=== PATIENT | male | born 1960 | race Caucasian/White ===

== ENCOUNTER 2019-11-06 11:37 | Emergency (ER) | payer BC, SELFPAY ==
--- NOTE | ~2019-11-06 | XR_ITS ---
EXAMINATION: XR chest 1V EXAM DATE: 11/06/2019 12:03 INDICATION: Right facial droop. Slurred speech. TECHNIQUE: Portable AP frontal chest x-ray was obtained. Comparison is made to prior examination from 09/16/2013. FINDINGS: The lungs are clear. There are no pleural effusions. Cardiac silhouette is prominent but magnified on this AP technique. There is no pneumothorax suspected. The bones and soft tissues are unremarkable. IMPRESSION: No acute cardiopulmonary findings. Reviewed, dictated and finalized at location A.
--- NOTE | ~2019-11-06 | CT_ITS ---
EXAMINATION: CT brain wo con EXAM DATE: 11/06/2019 11:59 INDICATION: Right facial droop, hemiparesis. TECHNIQUE: Spiral CT of the head was performed without contrast. Axial, coronal and sagittal images were reviewed. The dose-length product (DLP) for this examination was 605.33 mGy-cm. The exposure w as tailored according to patient size, and iterative reconstruction (ASIR) was used as additional dos e reduction technique. Comparison is made to prior examination from 2005. FINDINGS: There is no acute intraparenchymal hemorrhage. No evidence of intraparenchymal brain mass lesion. No evidence of acute infarction. There is no mass effect or midline shift. Mild microangiop athy. The ventricles are normal in size. There are no extra-axial collections. There are no acute c alvarial fractures. The orbits are unremarkable. Soft tissue is unremarkable. The visualized sinuse s and mastoid air cells are well aerated. IMPRESSION: 1. No acute intracranial findings. Reviewed, dictated and finalized at location A.
[2019-11-06 11:40] VITALS: BP 169/101; PULSE 75; RESP 12; TEMP 36.6; O2SAT 98
--- NOTE | 2019-11-06 11:40 | ECG_ITS ---
Measurements Intervals [place] Rate: 63 P: 5 FL: 191 QRS: 62 QRSD: 81 T: 18 QT: 355 QTc: 366 Interpretive Statements SINUS RHYTHM CANNOT RULE OUT SEPTAL INFARCT, AGE INDETERMINATE BASELINE ARTIFACT- V1-V3 ABNORMAL ECG Electronically Signed On 11-06-2019 17:06:07 CDT by Jhonny Cruz D.O.
[2019-11-06 11:46] LABS: Glucose Point of Care 113 (65-105)
[2019-11-06 12:02] LABS: Basophils Percent Auto 0.4 % (0.2-1.2); Eosinophils Absolute Auto 0.1 K/mm3 (0-0.3); Eosinophils Percent Auto 1.2 % (0-4.4); Immature Granulocyte Absolute 0.07 K/mm3 (0.00-0.031); Immature Granulocyte Percent A 0.9 % (0-0.5); Lymphocytes Absolute Auto 1.91 K/mm3 (0.9-3.2); Lymphocytes Percent Auto 25.9 % (18.3-44.2); Mean Corpuscular HGB Conc 33.3 g/dl (32-36); Mean Corpuscular Hemoglobin 31.1 pg (26-34); Mean Corpuscular Volume 93.2 fl (80-100); Mean Platelet Volume 10.1 fl (7.4-10.4); Monocytes Absolute Auto 0.7 K/mm3 (0.1-0.6); Monocytes Percent Auto 9.8 % (2.6-8.5); Neutrophils Absolute Auto 4.6 K/mm3 (1.3-6.7); Neutrophils Percent Auto 61.8 % (45.5-73.1); Platelet Count Result 249 k/mm3 (150-375); Red Blood Count 5.47 M/mm3 (4.6-6.20); Red Cell Distribution Width 12.3 % (11.5-14.5); White Blood Count 7.4 K/mm3 (4.5-10.0)
--- NOTE | 2019-11-06 12:03 | ED.GENADULT ---
HPI - General Adult General Chief complaint: Neuro Symptoms/Deficit Stated complaint: I think I had a stroke Time Seen by Provider: 11/06/19 11:41 Source: patient Mode of arrival: ambulatory Limitations: no limitations History of Present Illness HPI narrative: Patient is a 59-year-old male who presents for evaluation of right-sided facial droop. Patient states he developed an earache a couple of days ago, tried to do some earwax removal without much success, and then noticed yesterday that he was having trouble drinking, he had facial droop and lip drooping on the right. Onset of symptoms over 15 hours ago. Patient denies headache, fever, arm, hand numbness, leg weakness or difficulty walking. No dizziness. Patient states he still has mild earache pain. No discharge from the ears. No vision changes. Related Data Home Medications Medication Instructions Recorded Confirmed tamsulosin mg PO 11/06/19 Allergies Allergy/AdvReac Type Severity Reaction Status Date / Time No Known Allergies Allergy Unknown Verified 11/06/19 12:05 Review of Systems Review of Systems: Narrative: CONSTITUTIONAL: Denies fever, chills, or sweats. EYES: Denies visual changes, redness, or discharge. ENT: Denies rhinorrhea, congestion, sore throat, reports right ear pain for the past 4 days CARDIOVASCULAR: Denies chest pain, palpitations, or edema. RESPIRATORY: Denies cough or dyspnea. GASTROINTESTINAL: Denies abdominal pain, nausea, vomiting, or diarrhea. GENITOURINARY: Denies dysuria or hematuria. SKIN: Denies rash or itching. MUSCULOSKELETAL: Denies back pain, joint pain, or myalgia. NEUROLOGIC: Denies headache, numbness, reports right-sided facial droop PMFSH Past Medical History Medical History Anxiety Depression GERD (gastroesophageal reflux disease) Herniated disc Pneumonia Surgical History Surgical History H/O wrist surgery Previous back surgery Social History Social History Smoking status: Never smoker Second hand tobacco smoke exposure: No Exam Narrative: Exam Narrative: GENERAL: Awake, alert, conversant HEAD: Normocephalic, atraumatic. EYES: PERRLA and EOMI. ENT: Nares clear, no rhinorrhea or epistaxis. Mucous membranes moist. TMs clear bilaterally. Right ear intact light reflex, no bulging, no effusion. Mild erythema of the external ear canal, no vesicles, nontender. NECK: Supple. CHEST: No respiratory distress, breathing even and non labored HEART: Regular rate, sinus rhythm ABDOMEN:Non distended, non tender EXTREMITIES: Normal range of motion. No edema. SKIN: Warm, dry, no rash. NEURO: Right-sided facial droop that includes the forehead and eye. Patient is unable to raise his eyebrows, he has right-sided lip drooping, grimace is asymmetric. Finger to nose intact bilaterally. EOMs intact without nystagmus. Normal, Intact sensation in face. Hearing intact bilaterally. Shoulder shrug intact. Strength 5/5 bilateral upper extremities. Strength 5/5 bilateral lower extremities. Reflexes 2+ patellar. Heel to leal intact bilaterally. Ambulatory exam deferred. Course Vital Signs Vital signs: Vital Signs Temperature 36.6 C 11/06/19 11:40 Pulse Rate 75 11/06/19 11:40 Respiratory Rate 12 11/06/19 11:40 Blood Pressure 169/101 H 11/06/19 11:40 Pulse Oximetry 98 11/06/19 11:40 Temperature 36.6 C 11/06/19 11:40 Pulse Rate 75 11/06/19 11:40 Respiratory Rate 12 11/06/19 11:40 Blood Pressure 169/101 H 11/06/19 11:40 Pulse Oximetry 98 11/06/19 11:40 Medical Decision Making [facility] Narrative Medical decision making narrative: Patient presented for evaluation of right-sided facial droop after experiencing ear pain. 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
[2019-11-06 12:14] LABS: Prothrombin Time 12.8 Seconds (11.1-14.7)
[2019-11-06 12:15] LABS: Partial Thromboplastin Time 23.7 SECONDS (22.3-36.8)
[2019-11-06 12:24] LABS: Blood Urea Nitrogen 14 mg/dL (9-20); Calcium 9.7 mg/dL (8.4-10.2); Carbon Dioxide 32 mmol/L (22-30); Chloride 100 mmol/L (98-107); Estimated CRCL calculation 84 ml/min; Estimated Glomerular Filt Rate > 60; Glucose 108 mg/dL (75-110); Potassium 4.3 mmol/L (3.4-5.0); Sodium 136 mmol/L (137-145)
[2019-11-06 12:36] LABS: Troponin I < 0.012 ng/mL (0.000-0.034)
[2019-11-06] MEDS: ACETAMINOPHEN 500 MG TABLET 1000 MG PO (13:15)
[2019-11-06 13:20] VITALS: BP 158/90; PULSE 69; RESP 16; O2SAT 98
--- NOTE | 2019-11-06 13:28 | PC.NURSE ---
VS AT 1230 PULSE 70, RR 14, POX97, BP 176/84
== END 2019-11-06 13:20 | disposition home or self-care (01) ==
PROVIDERS: Emergency Provider Emergency Medicine; PCP Family Medicine Adolescent Medicine
DX: G51.0 Bell's palsy (principal); K21.9 Gastro-esophageal reflux disease without esophagitis; R94.31 Abnormal electrocardiogram [ECG] [EKG]
CPT/HCPCS: 36415; 70450; 71045; 80048; 82948; 84484; 85025; 85610; 85730; 93005; 99284; A9270

== ENCOUNTER 2020-01-04 10:41 | Observation (INO) | payer BC, SELFPAY ==
[2020-01-04] VITALS (18 sets, daily range): BP systolic 100–141; BP diastolic 50–91; PULSE 47–76; RESP 11–18; TEMP 36.4–36.7; O2SAT 96–100
--- NOTE | ~2020-01-04 | XR_ITS ---
EXAMINATION: XR chest 1V portable EXAM DATE: 01/04/2020 11:30 INDICATION: Syncope. TECHNIQUE: Portable AP frontal chest x-ray was obtained. Comparison is made to prior examination from 11/06/2019. FINDINGS: The lungs are clear. There are no pleural effusions. Cardiac silhouette is prominent but magnified on this AP technique. There is no pneumothorax suspected. The bones and soft tissues are unremarkable. IMPRESSION: No acute cardiopulmonary findings. Reviewed, dictated and finalized at location A.
--- NOTE | ~2020-01-04 | XR_ITS ---
EXAMINATION: XR ankle RT min 3V DATE: 01/04/2020 11:30 INDICATION: Right ankle pain. Fall. TECHNIQUE: 4 views of right ankle were obtained. COMPARISON: None. FINDINGS: There is an oblique fracture of distal fibula with medial aspect of the fracture line 5 mm distal to the level of the tibial plafond. There is heterotopic ossification distal to medial malleol us. There is mild midfoot osteoarthritis. There are enthesophytes at the posterior and plantar aspect s of calcaneal tuberosity. Ankle soft tissue swelling is noted. IMPRESSION: 1. Oblique fracture of distal fibula. 2. Heterotopic ossification distal to medial malleolus, likely acute avulsion fractures. Reviewed, dictated and finalized at location B. IMPRESSION: 1. Oblique fracture of distal fibula. 2. Heterotopic ossification distal to medial malleolus, likely acute avulsion f ractures.
--- NOTE | ~2020-01-04 | US_ITS ---
EXAMINATION: US carotid duplex BI DATE: 01/05/2020 11:06 INDICATION: Syncope. Vertigo. TECHNIQUE: Grayscale, color Doppler, and pulsed Doppler images of the cervical carotid arteries were obtained. The degree of vessel stenosis is placed in one of the following categories: normal, <50%, 5 0-69%, >=70% but less than near-occlusion, near-occlusion, or total occlusion. Note that percent sten osis relative to normal distal artery lumen diameter is indirectly measured from velocity measurement s as described by Chon, et al. Radiology 2003; 229:340-346. COMPARISON: None. FINDINGS: RIGHT: The right common carotid artery (CCA) peak systolic velocity (PSV) is 216 cm/s. The right internal ca rotid artery (ICA) PSV is 107 cm/s. The right ICA end-diastolic velocity (EDV) is 36 cm/s. The right ICA/CCA PSV ratio is 0.5. Grayscale and color Doppler images yield an estimate of <50% diameter reduc tion from plaque in the ICA. The external carotid artery (ECA) PSV is 139 cm/s. There is antegrade fl ow in the right vertebral artery. LEFT: The left CCA PSV is 188 cm/s. The left ICA PSV is 113 cm/s. The left ICA EDV is 38 cm/s. The left ICA /CCA PSV ratio is 0.6. Grayscale and color Doppler images yield an estimate of <50% diameter reductio n from plaque in the ICA. The ECA PSV is 96 cm/s. There is antegrade flow in the left vertebral arter y. IMPRESSION: 1. <50% stenosis in the right internal carotid artery. 2. <50% stenosis in the left internal carotid artery. Reviewed, dictated and finalized at location A.
--- NOTE | ~2020-01-04 | CT_ITS ---
EXAMINATION: CT brain wo [facility] EXAM DATE: 01/04/2020 12:09 INDICATION: Syncope. Fall, head injury. TECHNIQUE: Spiral CT of the head was performed without contrast. Axial, coronal and sagittal images were reviewed. The dose-length product (DLP) for this examination was 605.33 mGy-cm. The exposure w as tailored according to patient size, and iterative reconstruction (ASIR) was used as additional dos e reduction technique. Comparison is made to prior examination from 11/06/2019. FINDINGS: There is no acute intraparenchymal hemorrhage. No evidence of intraparenchymal brain mass lesion. No evidence of acute infarction. Please note that initial head CT has limited sensitivity f or small or acute infarctions. There is mild to moderate periventricular and subcortical hypodensity, nonspecific but probably related to small vessel ischemic disease. There is mild prominence of the sulci and ventricles related to cerebral atrophy. There is intracranial carotid arteriosclerosis. There are no extra-axial collections. There is no mass effect or midline shift. The orbits are unr emarkable. Soft tissue is unremarkable. The visualized sinuses and mastoid air cells are well aerat ed. IMPRESSION: 1. No acute intracranial findings. 2. Chronic age related findings. Reviewed, dictated and finalized at location A.
--- NOTE | ~2020-01-04 | CT_ITS ---
EXAMINATION: CTA chest PE protocol DATE: 01/04/2020 13:56 INDICATION: Syncope. TECHNIQUE: Computed tomography angiography (CTA) of the chest was performed with 100 mL Omnipaque-350 intravenous contrast timed to evaluate the pulmonary arteries. Coronal maximum intensity projection 3D-reconstructions were created by the technologist. Automated exposure control and iterative reconst ruction technique were employed. The dose-length product was 731.89 mGy-cm. COMPARISON: CT abdomen and pelvis 04/08/2019, chest CT 09/16/2013 FINDINGS: The lungs demonstrate mild atelectasis. There are a few chronic scattered nodules in the thea ngs measuring up to 6 mm in right lower lobe, consistent with granulomatous disease. No pleural effus ion. The heart size is normal. There are coronary artery calcifications. No pericardial effusion. The re are gallstones in the gallbladder, which is normal in size. There is diffuse hepatic steatosis. Th ere is no pulmonary embolus. There is bilateral gynecomastia. There is chronic mild bilateral hilar l ymphadenopathy, likely reactive. There is mild thoracic spondylosis. IMPRESSION: 1. No pulmonary embolus. Reviewed, dictated and finalized at location B. IMPRESSION: 1. No pulmonary embolus.
--- NOTE | 2020-01-04 11:03 | ECG_ITS ---
Measurements Intervals [place] Rate: 71 P: -11 NM: 171 QRS: 56 QRSD: 96 T: 36 QT: 400 QTc: 437 Interpretive Statements SINUS RHYTHM INCOMPLETE RIGHT BUNDLE BRANCH BLOCK BORDERLINE ST-T WAVE ABNORMALITY- INFERIOR LEADS BASELINE ARTIFACT- II, AVR BORDERLINE ECG Electronically Signed On 01-04-2020 11:40:26 CDT by Jhonny Cruz D.O.
--- NOTE | 2020-01-04 11:06 | ED.GENADULT ---
HPI - General Adult General Chief complaint: Fall Stated complaint: SYNCOPE Time Seen by Provider: 01/04/20 10:50 Source: patient Mode of arrival: ambulatory Limitations: no limitations History of Present Illness HPI narrative: This patient is a 59 year old male who presents for evaluation of right ankle pain s/p syncopal episode. PAtient states he was walking to his car and then without warning he passed out. He states he woke up on the ground. He states he was able to get himself up and lean on his truck. He states he passed out again, and he woke up this time with pain to his right ankle. He denies chest pain, sob, nausea, vomiting or palpitations. He states yesterday he had a headache but he denies a headache or dizziness currently. Related Data Home Medications Medication Instructions Recorded Confirmed tamsulosin 0.4 mg PO HS 11/06/19 01/04/20 lisinopril 20 mg PO DAILY 01/04/20 01/04/20 Allergies Allergy/AdvReac Type Severity Reaction Status Date / Time No Known Allergies Allergy Unknown Verified 01/04/20 11:02 Review of Systems Review of Systems: All systems reviewed & are unremarkable except as noted in HPI and below Constitutional: Constitutional: Denies chills and Denies fever(s) Eyes: Eyes: Reports no additional eye complaints Cardiovascular: Cardiovascular: Denies chest pain Respiratory: Respiratory: Denies cough, Denies dyspnea and Denies wheezing Gastrointestinal: Gastrointestinal: Denies abdominal pain, Denies diarrhea, Denies nausea and Denies vomiting Neurologic: Reports syncope, Denies headache(s) and Denies numbness [facility] Family History Family History (Updated 01/04/20 @ 16:38 by Nayely Grigsby RN) Mother Heart attack Hypertension Father Heart attack Hypertension Sibling Heart attack Lung cancer Hypertension Social History Social History Smoking status: Never smoker Second hand tobacco smoke exposure: Yes Alcohol intake: former Substance use: never Gender identity (if verbalized by the patient): Male Spiritual care concerns: No Exam Const: General: no acute distress and alert Orientation/consciousness: patient oriented x3 HENMT: Head: normocephalic and atraumatic Face and sinus: other (bells palsy right facial droop) Mouth: Yes Normal oral and palatal mucosa present and Yes oropharynx normal Chest: Chest palpation & inspection: normal inspection of the chest Resp: Effort & Inspection: normal respiratory effort and no retractions Auscultation: clear to auscultation bilaterally Cardio: Rate: regular rate Rhythm: regular rhythm Heart sounds: no murmurs GI: GI Palp: Yes Soft to palpation, No Tenderness to palpation present (GI), No Guarding due to palpation present (GI), No Rigid due to palpation and No Hernia present Skin: General skin exam: normal color Rashes: no rashes Neuro: General: patient oriented x3 and moves all extremities Extrem: Other: right lateral ankle TTP Psych: Mental Status: mental status grossly normal Affect: normal affect Course Reevaluation(s) Reevaluation #1: I discussed xray with nurse in OR with Dr. Argueta. I notified them patient will need to be admitted to hospitalist and he will need to consult. Date: 01/04/20 Time: 14:14 Reevaluation #2: I discussed case with Mary aldrich who accepts patient. Date: 01/04/20 Time: 14:16 Vital Signs Vital signs: Vital Signs Pulse Rate 71 01/04/20 10:48 Respiratory Rate 15 01/04/20 10:48 Blood Pressure 111/76 01/04/20 10:48 Pulse Oximetry 98 01/04/20 10:48 Temperature 98.1 F 01/04/20 10:53 Pulse Rate 54 L 01/04/20 17:59 Respiratory Rate 18 01/04/20 15:31 Blood Pressure 141/71 H 01/04/20 17:59 Pulse Oximetry 99 01/04/20 15:31 Medical Decision Making Vital Signs Vital Signs: Vital Signs Pulse Rate 71 01/04/20 10:48 Respiratory Rate 15 01/04/20 10:48 Blood P
[2020-01-04 11:29] LABS: Basophils Percent Auto 0.5 % (0.2-1.2); Eosinophils Absolute Auto 0.1 K/mm3 (0-0.3); Eosinophils Percent Auto 0.9 % (0-4.4); Hematocrit 46.8 % (42.0-52.0); Hemoglobin 15.7 g/dL (14.0-18.0); Immature Granulocyte Percent A 1.3 % (0-0.5); Lymphocytes Absolute Auto 1.52 K/mm3 (0.9-3.2); Lymphocytes Percent Auto 19.2 % (18.3-44.2); Mean Corpuscular HGB Conc 33.5 g/dl (32-36); Mean Corpuscular Volume 92.3 fl (80-100); Mean Platelet Volume 10.4 fl (7.4-10.4); Monocytes Absolute Auto 0.7 K/mm3 (0.1-0.6); Monocytes Percent Auto 8.2 % (2.6-8.5); Neutrophils Absolute Auto 5.5 K/mm3 (1.3-6.7); Neutrophils Percent Auto 69.9 % (45.5-73.1); Platelet Count Result 209 k/mm3 (150-375); Red Blood Count 5.07 M/mm3 (4.6-6.20); Red Cell Distribution Width 12.5 % (11.5-14.5); White Blood Count 7.9 K/mm3 (4.5-10.0)
[2020-01-04] MEDS: MORPHINE SULFATE 4 MG/ML INJ IV PUSH (11:57)
[2020-01-04] MEDS: ONDANSETRON INJ 4 MG/2 ML VIAL IV PUSH (11:57)
[2020-01-04] MEDS: LACTATED RINGERS 1,000 ML 999 ML IV CONT (11:57)
[2020-01-04 12:49] LABS: INR 1.1; Partial Thromboplastin Time 21.8 SECONDS (22.3-36.8); Prothrombin Time 13.6 Seconds (11.1-14.7)
[2020-01-04 12:50] LABS: Alanine Aminotransferase 30 U/L (4-50); Alkaline Phosphatase 88 U/L (38-126); Anion Gap 7 mmol/L (8-16); Aspartate Amino Transferase 25 U/L (17-59); Bilirubin,Total 1.1 mg/dL (0.2-1.3); Blood Urea Nitrogen 24 mg/dL (9-20); Carbon Dioxide 24 mmol/L (22-30); Chloride 103 mmol/L (98-107); Estimated CRCL calculation 53 ml/min; Estimated Glomerular Filt Rate 39; Glucose 101 mg/dL (75-110); Magnesium 1.9 mg/dL (1.6-2.3); Potassium 4.3 mmol/L (3.4-5.0); Sodium 134 mmol/L (137-145)
[2020-01-04 12:52] LABS: D Dimer 1.23 ug/mL (<0.48)
--- NOTE | 2020-01-04 13:10 | ECG_ITS ---
Measurements Intervals [place] Rate: 64 P: -28 [place]: 191 QRS: 66 QRSD: 86 T: 35 QT: 397 QTc: 412 Interpretive Statements SINUS RHYTHM CANNOT RULE OUT SEPTAL INFARCT, AGE INDETERMINATE BORDERLINE ST-T WAVE ABNORMALITY- INFERIOR LEADS BASELINE ARTIFACT- I, II, III, AVR, AVL, AVF ABNORMAL ECG Electronically Signed On 01-04-2020 16:03:24 CDT by Jhonny Cruz D.O.
--- NOTE | 2020-01-04 16:36 | ADMGEN ---
This patient, Pedro Campos Jr., was admitted to Medical Room 246-01. Patient/family oriented to hospital policies and general routines including ID bracelet, bed and alarms, visiting hours, pain management, procedures, bathroom and other care routines, personal items, smoking policy, room service/diet, and visiting hours. Valuables list has been completed. Information on how to activate the Rapid Response Team has been discussed. Patient/Family are encouraged to report perceived risks to care and to ask questions if they do not understand what they are told or what they should do.
[2020-01-04] MEDS: SODIUM CHLORIDE 0.9% IV 1,000 ML 125 ML IV CONT (16:53)
--- NOTE | 2020-01-04 19:30 | PM.IMHP ---
H&P: HPI History of Present Illness Date/Time: 01/04/20 19:30 Chief complaint: Syncope. Narrative: Pedro Campos Jr. is a very pleasant 59-year-old male with hypertension and benign prostatic hyperplasia who presented to the emergency department earlier this morning for evaluation after a syncopal episode. He was in his usual state of health when he woke this morning and on the way to work he stopped to get gas. While walking across the parking lot back to his truck, he had a syncopal episode without prodrome. He came to in the prone position and was able to get himself back up, and shortly thereafter while leaning against his truck, he had another syncopal episode. This time when he came to he had quite a bit of pain in his right ankle, and required help getting back up. In the emergency department he was found to have a distal fibular fracture and he is being admitted for further syncopal workup. I was called the several times by the nurse with reports of the patient becoming bradycardic, with rates in the 30s to 40s for brief periods of time. When she went to check on him, he was awake and watching television and had no symptoms of such. With regards to his ankle pain, it is well controlled on oral pain medications. He denies paresthesias distal to the fracture. He is on no AV osvaldo blocking agents. Again, he had no prodrome prior to the syncopal episodes. He specifically denies feeling lightheaded and dizzy. There were no visual changes. He denies palpitations, pleuritic pain, chest pain, and shortness of breath. He has never had syncopal episodes in the past. Review of Systems Review of Systems: Narrative: Twelve systems were reviewed with pertinent positives and negatives as per HPI. 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 No recent cold or flu symptoms. No history of cardiac or pulmonary disease. 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 He does not know if he snores. He denies orthopnea and PND. Denies daytime somnolence. No thyroid disease. Weight has remained stable. No history of diabetes or dyslipidemia. Endorses nocturia, usually 4 to 5 times per night and this has been going on for years. No dysuria. No history of venous thromboembolism. Except as documented, all other systems were reviewed and are negative. [facility] Past Medical History Medical History (Updated 01/04/20 @ 21:56 by Mary Matthews PA-C) Anxiety Benign prostatic hyperplasia Depression Essential hypertension Gastroesophageal reflux disease Surgical History Surgical History (Updated 01/04/20 @ 21:51 by Mary Matthews PA-C) Status post lumbar microdiscectomy (~07/04/03) L5-S1. Family History Family History (Updated 01/04/20 @ 21:53 by Mary Matthews PA-C) Mother Heart attack Hypertension Father , at age 54. Heart attack Hypertension Sibling Heart attack Lung cancer Hypertension Sibling Heart attack, Onset Age: 50 Pacemaker Social History Social History (Updated 01/04/20 @ 21:52 by Mary Matthews PA-C) Social History: The patient lives in [place], [place] with his brother. He has never and has no children. He is a lifelong nonsmoker. He used to drink heavily in the past but has not drank for years. No illicit substance use. He works on [employer], loading grain. He designates his brother, Kendall Campos, as his surrogate decision maker and he wishes to be a full code. Spiritual care concerns: No Meds Home Medications and Allergies Home Medications Medication Instructions Recorded Confirmed Type tamsulosin 0.4 mg PO HS 11/06/19 01/04/20 History lisinopril 20 mg PO DAILY 01/04/20 01/04/20 History Allergies Allergy/AdvReac Type Severity Reaction Status Date / Time No Known Allergies Allergy Unknown Verified 01/04/20 11:02 Vital Signs
[2020-01-04] MEDS: TAMSULOSIN HCL 0.4 MG CAPSULE PO (22:15)
[2020-01-05] VITALS (9 sets, daily range): BP systolic 111–122; BP diastolic 40–58; PULSE 56–74; RESP 16–21; TEMP 36.2–36.5; O2SAT 97–100
[2020-01-05] MEDS: SODIUM CHLORIDE 0.9% IV 1,000 ML 100 ML IV CONT ×2 (01:31→11:33)
[2020-01-05 07:34] LABS: Basophils Percent Auto 0.3 % (0.2-1.2); Eosinophils Absolute Auto 0.1 K/mm3 (0-0.3); Eosinophils Percent Auto 1.1 % (0-4.4); Hematocrit 41.9 % (42.0-52.0); Immature Granulocyte Absolute 0.05 K/mm3 (0.00-0.031); Immature Granulocyte Percent A 0.7 % (0-0.5); Lymphocytes Absolute Auto 1.25 K/mm3 (0.9-3.2); Mean Corpuscular HGB Conc 33.4 g/dl (32-36); Mean Corpuscular Hemoglobin 31.2 pg (26-34); Mean Corpuscular Volume 93.3 fl (80-100); Mean Platelet Volume 10.4 fl (7.4-10.4); Monocytes Absolute Auto 0.8 K/mm3 (0.1-0.6); Monocytes Percent Auto 10.3 % (2.6-8.5); Neutrophils Absolute Auto 5.2 K/mm3 (1.3-6.7); Neutrophils Percent Auto 70.6 % (45.5-73.1); Platelet Count Result 175 k/mm3 (150-375); Red Blood Count 4.49 M/mm3 (4.6-6.20); Red Cell Distribution Width 12.6 % (11.5-14.5); White Blood Count 7.4 K/mm3 (4.5-10.0)
[2020-01-05 07:49] LABS: Alanine Aminotransferase 35 U/L (4-50); Albumin Level 3.4 g/dL (3.5-5.1); Alkaline Phosphatase 78 U/L (38-126); Anion Gap 6 mmol/L (8-16); Aspartate Amino Transferase 33 U/L (17-59); Bilirubin,Total 0.9 mg/dL (0.2-1.3); Blood Urea Nitrogen 19 mg/dL (9-20); Calcium 8.5 mg/dL (8.4-10.2); Carbon Dioxide 23 mmol/L (22-30); Chloride 105 mmol/L (98-107); Cholesterol 171 mg/dL (0-200); Estimated CRCL calculation 93 ml/min; Estimated Glomerular Filt Rate > 60; Glucose 99 mg/dL (75-110); HDL Direct 28 mg/dL; Magnesium 1.9 mg/dL (1.6-2.3); Potassium 4.2 mmol/L (3.4-5.0); Sodium 134 mmol/L (137-145); Triglycerides 103 mg/dL (<150)
[2020-01-05 08:01] LABS: LDL Cholesterol Direct 118 mg/dL
--- NOTE | 2020-01-05 09:01 | PM.CNOR ---
Assessment and Plan Assessment and plan (1) Closed fracture of right distal fibula: Qualifiers: Encounter type: initial encounter Fracture morphology: other fracture Qualified Code(s): S82.831A - Other fracture of upper and lower end of right fibula, initial encounter for closed fracture Code(s): S82.831A - Other fracture of upper and lower end of right fibula, initial encounter for closed fracture Status: Acute Assessment and Plan: 59-year-old male with a history of a right ankle injury status post fall after a syncopal episode. Radiographs of the right ankle from the emergency room reveal an oblique fracture of distal fibula in good alignment. Radiographs reviewed with Dr. Argueta. The fracture type and injury as well as radiographs discussed with the patient and family. Operative and nonoperative treatment options reviewed. The patient elects for non operative treatment. Risk of nonunion, malunion or late displacement discussed. Stiffness, pain and possible dysfunction of the joint discussed. Fracture precautions and activity restrictions reviewed. The patient verbalizes understanding. Recommended patient to be fit with a fracture boot. Will plan for removal of splint once CAM walker boot is available. Patient will then be nonweightbearing to the right lower extremity with crutches. Patient may need crutch training with physical and occupational therapy. Patient will not be able to return to work due to activity restrictions. He will follow up in our office in approximately 6 weeks for repeat radiographs in progression of activity level as well as formal physical therapy. Thank you for allowing us to assist in the care of this patient. History of Present Illness HPI Consult date: 01/05/20 Consult reason: fracture (Right Distal Fibula Fracture ) Chief complaint: Syncope, Acute renal failure Narrative: 59-year-old male who complains of right ankle pain status post fall while coming out of a gas station yesterday. The patient states that he was walking to his truck when he suddenly fell to the ground and then woke up while on the ground he then ambulated closer to his trach and pass out again at which point he believes he hurt his ankle. His falls seem to be syncopal in nature. Radiographs of the right ankle from the emergency room revealed an oblique fracture of distal fibula. orthopedic consult requested for management of right ankle fracture. Review of Systems Constitutional: Constitutional: Denies chills, Denies fatigue and Reports weakness Eyes: Eyes: Denies blurry vision and Denies photophobia ENT: Reports system reviewed and no additional complaints, except as documented Cardiovascular: Cardiovascular: Reports lightheadedness Respiratory: Respiratory: Reports no additional respiratory complaints Gastrointestinal: Gastrointestinal: Reports no additional gastrointestinal complaints, Reports diarrhea ( Reports of diarrhea a couple of days ago), Denies nausea and Denies vomiting Genitourinary: Genitourinary: Reports no additional male genitourinary complaints Musculoskeletal: Musculoskeletal: Reports arthralgias ( right ankle) and Reports joint swelling ( right ankle) Integumentary/Breasts: Skin/Breast: Reports system reviewed and no additional complaints, except as docu Neurologic: Reports system reviewed and no additional complaints, except as documented Psychiatric: Psychiatric: Reports no additional psychiatric complaints PMFSH Past Medical History Medical History Anxiety Benign prostatic hyperplasia Depression Essential hypertension Gastroesophageal reflux disease Surgical History Surgical History Status post lumbar microdiscectomy (~07/04/03) L5-S1. Family History Family History Mother Heart attack Hypertension Fa
--- NOTE | 2020-01-05 09:08 | PM.CNCAR ---
Assessment and Plan Assessment and plan (1) Syncope: Code(s): R55 - Syncope and collapse Status: Acute Assessment and Plan: his blood work shows creatinine on admission 1.8 and today 1 suggestive of possible dehydration. Patient works outside in the hot weather and he could be dehydrated. on telemetry his heart rate 50s beats per minute and no pauses. pulmonary embolism was ruled out. No ischemic changes on EKG. check echocardiogram. he will need 30 day event monitor as an outpatient. (2) Elevated serum creatinine: Code(s): R79.89 - Other specified abnormal findings of blood chemistry Status: Acute Assessment and Plan: possibly dehydration (3) Acute dehydration: Code(s): E86.0 - Dehydration Status: Acute History of Present Illness History of Present Illness Consult date/time: date of service: 01/05/20 09:08 Requesting physician: Fatuma Dan PA-C Consult reason: Other ( bradycardia) Reason For Visit: Syncope. Narrative: this is 59-year-old patient with past medical history of hypertension and benign prostatic hypertrophy who apparently sustained episode of syncope while walking in the gas station. his nurse reports he had few times of bradycardia 30s to 40s beats per minute and she went to check on him he was watching TV. he sustained fracture of the distal fibula of the right lower extremity. he states that he did not have any dizziness or vomiting or palpitations or chest pain or shortness of breath. He works outside in the hot weather and maybe was not drinking enough water. Never passed out before. Reports his mom and dad both in the 50s because of heart attacks. His younger brother had a heart attack but he smoker. catheter admission 1.8 and today 1, D-dimer elevated at 1.24, CT thorax ruled out pulmonary embolism which shows active hilar lymph nodes, EKG reviewed myself shows normal sinus rhythm and no ischemia. troponins x1 negative Review of Systems Constitutional: Constitutional: Denies chills, Denies fever(s) and Denies poor appetite Eyes: Eyes: Denies eye discharge, Denies loss of vision, Denies eye pain and Denies photophobia ENT: Denies dizziness, Denies epistaxis, Denies nasal congestion and Denies sore throat Cardiovascular: Cardiovascular: Denies chest pain, Reports syncope, Denies pedal edema, Denies leg edema, Denies palpitations, Denies dyspnea, Denies dyspnea on exertion and Denies orthopnea Respiratory: Respiratory: Denies cough, Denies dyspnea, Denies dyspnea on exertion and Denies wheezing Gastrointestinal: Gastrointestinal: Denies abdominal pain, Denies diarrhea, Denies nausea and Denies vomiting Genitourinary: Genitourinary: Denies hematuria, Denies genital lesions and Denies dysuria Musculoskeletal: Musculoskeletal: Denies arthralgias, Denies joint swelling and Denies numbness Integumentary/Breasts: Skin/Breast: Denies pruritus and Denies rash Neurologic: Denies dizziness, Reports syncope, Denies loss of vision and Denies numbness Psychiatric: Psychiatric: Denies anxiety and Denies depression Endocrine: Endocrine: Denies cold intolerance, Denies heat intolerance and Denies palpitations Hematologic/Lymphatic: Hematologic/Lymphatic: Denies easy bleeding and Denies easy bruising Allergic/Immunologic: Allergic/Immunologic: Denies urticaria and Denies wheezing PMFSH Past Medical History Medical History (Updated 01/04/20 @ 21:56 by Mary Matthews PA-C) Anxiety Benign prostatic hyperplasia Depression Essential hypertension Gastroesophageal reflux disease Surgical History Surgical History Status post lumbar microdiscectomy (~07/04/03) L5-S1. Family History Family History Mother Heart attack Hypertension Father , at age 54. Heart attack Hypertension Sibling Heart attack Lakshmi
--- NOTE | 2020-01-05 16:24 | PM.IMPN ---
Progress Note: A&P Assessment and Plan (1) Syncope: Code(s): R55 - Syncope and collapse Status: Acute Assessment and Plan: The patient suffered two syncopal episodes the morning of 01/03. His syncope is concerning for cardiac dysrhythmia as he had no prodrome. He is on telemetry monitoring which reveals sinus rhythm and sinus bradycardia with no pauses. There is no evidence for high grade AV block or tachyarrhythmias. He remained asymptomatic during the episodes of sinus bradycardia. EKG had no findings of ischemia. Chest CTA was negative for pulmonary embolism. Echocardiogram was ordered but has not been completed yet. Carotid doppler US was negative for ICA stenosis. Cardiology was consulted and input is greatly appreciated. The patient will need a Holter monitor on discharge. Additional considerations include dehydration as he reported diarrhea and was in the heat. His creatinine was elevated and has improved with IV fluids. Await additional studies. (2) Closed fracture of right distal fibula: Qualifiers: Encounter type: initial encounter Fracture morphology: other fracture Qualified Code(s): S82.831A - Other fracture of upper and lower end of right fibula, initial encounter for closed fracture Code(s): S82.831A - Other fracture of upper and lower end of right fibula, initial encounter for closed fracture Status: Acute Assessment and Plan: The patient sustained a fall due to a syncopal episode. Right ankle xray revealed an oblique fracture of the distal fibula. A splint was placed in the emergency department. Dr. Argueta was consulted and the patient has elected to proceed with non-operative management. Orthopedic surgery input is greatly appreciated. He is awaiting a CAM boot. Continue analgesics PRN. Weightbearing status/activity limitations per orthopedic surgery. (3) Elevated serum creatinine: Code(s): R79.89 - Other specified abnormal findings of blood chemistry Status: Resolved Assessment and Plan: Likely pre-renal as he works out in the heat and had diarrhea the day prior to admission. Lisinopril was held and he received gentle IV fluid rehydration. Cr has normalized to 1.00 and BUN is 19. Plan to discontinue IV fluids as he is tolerating PO intake well. (4) Essential hypertension: Code(s): I10 - Essential (primary) hypertension Status: Acute Assessment and Plan: Blood pressures were reviewed and they are reasonably controlled. Lisinopril is on hold due to elevated creatinine at admission but can likely be resumed tomorrow as renal function has normalized. (5) Benign prostatic hyperplasia: Code(s): N40.0 - Benign prostatic hyperplasia without lower urinary tract symptoms Status: Acute Assessment and Plan: Continue tamsulosin. Bladder scan was performed yesterday (01/03) and revealed retention so he underwent straight cath with 700cc returned. He has not had any further retention today and is voiding without difficulty. Continue to monitor. Subjective Date/time seen: 01/05/20 16:24 Interval history: Mr. Campos is a 59 y.o. male who is seen at the bedside in follow-up for syncopal episodes from which he sustained a closed fracture of the right distal fibula. His right ankle pain is well-controlled on PO analgesics. He is awaiting a CAM walker boot as he has decided to proceed with nonoperative management. He denies dizziness, lightheadedness, and headaches. He denies palpitations, chest pain, and dyspnea. He reports that he had diarrhea the day prior to his syncope but this has resolved. He is tolerating his diet well. He had several episodes of bradycardia but remained completely asymptomatic during these episodes. He had urinary retention yesterday but is voiding without difficulty at this time and the RN noted approximately 600cc urine output with 2 separate voids today. He has no other concerns. Review o
[2020-01-05] MEDS: TAMSULOSIN HCL 0.4 MG CAPSULE PO (20:16)
[2020-01-05 20:41] LABS: Glucose Point of Care 102 (65-105)
[2020-01-06] VITALS (8 sets, daily range): BP systolic 119–183; BP diastolic 63–83; PULSE 65–76; RESP 21; TEMP 36.6; O2SAT 100
[2020-01-06 06:15] LABS: Anion Gap 5 mmol/L (8-16); Blood Urea Nitrogen 14 mg/dL (9-20); Calcium 8.5 mg/dL (8.4-10.2); Carbon Dioxide 23 mmol/L (22-30); Chloride 104 mmol/L (98-107); Estimated CRCL calculation 103 ml/min; Estimated Glomerular Filt Rate > 60; Glucose 101 mg/dL (75-110); Potassium 4.3 mmol/L (3.4-5.0); Sodium 132 mmol/L (137-145)
--- NOTE | 2020-01-06 07:44 | PM.PNCARD ---
Progress Note: A&P Additional Plan 59-year-old man with unexplained syncopal episode. Electrocardiogram, telemetry have been normal for about 48 hours. Unremarkable cardiovascular physical exam. my partner has recommended a 30 day event monitor upon discharge. I will direct my office to schedule this and then follow-up with him after that data has been collected. Discharge is okay with me at any time since he has had no arrhythmias since admission. Demarcus Machado MD [facility] Subjective Date/time seen: date of service:01/06/20 07:44 Interval history: Follow-up visit in this 59-year-old man with a syncopal episode which thus far is un unexplained Patient resting comfortably when I entered the room to see him. No cardiovascular complaints Exam Const: General: comfortable and no acute distress HENMT: Mouth: Yes moist mucous membranes Eyes: Sclera: sclerae normal Pupils: Equal, round and reactive pupils present Neck: Neck: supple and no JVD Thyroid: thyroid normal Other: carotid pulses normal bilaterally no bruits audible Resp: Effort & Inspection: normal respiratory effort Auscultation: clear to auscultation bilaterally Cardio: Rate: regular rate Rhythm: regular rhythm Other: no murmur no gallop no rub GI: Auscultation: normal bowel sounds Skin: General skin exam: normal color Neuro: Cognition (Neuro): normal cognition Extrem: General: normal to inspection Objective Data Vital Signs Vital Signs: Vital Signs - 24 hr 01/05/20 08:00 01/05/20 12:00 01/05/20 14:00 Temperature 36.3 C L Pulse Rate 56 L 56 L 64 Respiratory Rate 17 Blood Pressure 116/57 L Pulse Oximetry 99 01/05/20 16:00 01/05/20 20:00 01/05/20 22:00 Temperature 36.2 C L Pulse Rate 64 63 66 Respiratory Rate 17 21 H Blood Pressure 111/40 L Pulse Oximetry 99 100 01/06/20 00:05 01/06/20 04:00 01/06/20 06:00 Temperature 36.6 C Pulse Rate 68 70 76 Respiratory Rate 21 H Blood Pressure 119/63 Pulse Oximetry 100 Intake/Output Intake/Output: Intake & Output 01/03/20 01/04/20 01/05/20 01/06/20 23:59 23:59 23:59 23:59 Intake Total 1630 4580 950 Output Total 3250 1100 Balance 1630 1330 -150 Meds/Results Medications: Active Medications Generic Name Dose Route Start Last Admin Trade Name Freq PRN Reason Stop Dose Admin Hydrocodone Bitart/Acetaminophen 1 tab 01/04/20 14:17 01/06/20 06:29 [place] 5-325 Mg PO 1 tab Q4H PRN Administration Pain Rated 4-6 Enoxaparin Sodium 40 mg 01/06/20 09:00 Lovenox SUB-Q DAILY TORI Morphine Sulfate 4 mg 01/04/20 14:17 Morphine Sulfate Inj IV PUSH Q2H PRN Pain Rated 7-10 Ondansetron HCl 4 mg 01/04/20 14:17 Zofran Inj IV PUSH Q4H PRN Nausea Tamsulosin HCl 0.4 mg 01/04/20 22:10 01/05/20 20:16 Flomax PO 0.4 mg HS TORI Administration Radiology Results: ITS Impressions Chest X-Ray 01/04/20 11:32 IMPRESSION: No acute cardiopulmonary findings. Ankle X-Ray 01/04/20 11:33 IMPRESSION: 1. Oblique fracture of distal fibula. 2. Heterotopic ossification distal to medial malleolus, likely acute avulsion fractures. Head CT 01/04/20 12:12 IMPRESSION: 1. No acute intracranial findings. 2. Chronic age related findings. Chest CTA 01/04/20 13:59 IMPRESSION: 1. No pulmonary embolus. Carotid Doppler Study 01/05/20 11:11 IMPRESSION: 1. <50% stenosis in the right internal carotid artery. 2. <50% stenosis in the left internal carotid artery. Labs Labs: Laboratory Results - last 24 hr 01/05/20 01/05/20 01/05/20 07:28 07:28 20:15 Sodium 134 L Potassium 4.2 Chloride 105 Carbon Dioxide 23 Anion Gap 6 L BUN 19 Creatinine 1.00 Estim Creat Clear Calc 93 Estimated GFR > 60 Glucose 99 POC Capillary Glucose 102 Calcium 8.5 Magnesium 1.9 Total Bilirubin 0.9 AST 33 ALT 35 Alkal
[2020-01-06] MEDS: ENOXAPARIN 40 MG/0.4 ML SYRINGE SUB-Q (08:55)
--- NOTE | 2020-01-06 09:23 | PM.PNORT ---
Progress Note: A&P Assessment and Plan (1) Closed fracture of right distal fibula: Qualifiers: Encounter type: initial encounter Fracture morphology: other fracture Qualified Code(s): S82.831A - Other fracture of upper and lower end of right fibula, initial encounter for closed fracture Code(s): S82.831A - Other fracture of upper and lower end of right fibula, initial encounter for closed fracture Status: Acute Assessment and Plan: 59-year-old male with a history of a right ankle injury status post fall after a syncopal episode. Radiographs of the right ankle from the emergency room reveal an oblique fracture of distal fibula in good alignment. Patient transitioned out of splint today and into a fracture boot. He may remove fracture boot to sleep/shower and daily for skin checks. Patient educated on removal of fracture boot and reapplication. Continue ice/elevation. Offload heel when fracture boot is in place. Continue pain control. PT/OT for crutch training and NWB RLE. Follow up in 6 weeks as an outpatient for repeat radiographs and progression of activity. Patient will be unable to return to work in the interim. Subjective Subjective Date/Time Seen: 01/06/20 09:23 No new complaints. Pain well controlled. Wanting to go home. Review of Systems Constitutional: Constitutional: Denies chills, Denies fatigue and Reports weakness Eyes: Eyes: Denies blurry vision and Denies photophobia ENT: Reports system reviewed and no additional complaints, except as documented Cardiovascular: Cardiovascular: Reports lightheadedness Respiratory: Respiratory: Reports no additional respiratory complaints Gastrointestinal: Gastrointestinal: Reports no additional gastrointestinal complaints, Reports diarrhea ( Reports of diarrhea a couple of days ago), Denies nausea and Denies vomiting Genitourinary: Genitourinary: Reports no additional male genitourinary complaints Musculoskeletal: Musculoskeletal: Reports arthralgias ( right ankle) and Reports joint swelling ( right ankle) Integumentary/Breasts: Skin/Breast: Reports system reviewed and no additional complaints, except as docu Neurologic: Reports system reviewed and no additional complaints, except as documented Psychiatric: Psychiatric: Reports no additional psychiatric complaints Exam Const: General: comfortable and no acute distress HENMT: Mouth: Yes dry mucous membranes Eyes: General: appearance normal, both eyes and all related structures Pupils: Equal, round and reactive pupils present Neck: Neck: supple Resp: Effort & Inspection: normal respiratory effort GI: Inspection: non-distended GI Palp: Yes Soft to palpation and No Tenderness to palpation present (GI) Skin: Other: Skin right ankle intact. Ecchymosis noted. No open wounds. No areas of pressure. No blistering. 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 Extrem: Right upper extremity: normal to inspection, full ROM and normal capillary refill Left upper extremity: normal to inspection, full ROM and normal capillary refill Right lower extremity: hip/thigh ( No pain with internal and external rotation of the leg, no groin pain.), knee ( No knee joint effusion noted.), ankle (moderate swelling. ecchymosis. skin intact. ) and foot ( moves toes, good capillary refill, sensation intact.) Left lower extremity: normal to inspection, full ROM and normal capillary refill Other: 2+ pedal pulses. Sensation intact to light touch. Diffuse swelling. Moves toes. Psych: Mental Status: mental status grossly normal Affect: normal affect Objective Data Vital Signs Vital Signs: Vital Signs - 24 hr 01/05/20 12:00 01/05/20 14:00 01/05/20 16:00 Temperature 36.3 C L Pulse Rate 56 L 64 64 Respiratory Rate 17 Blood Pressure 116/57 L Pulse Oximetry 99 01/05/20 20:00 01/05/20 22:00 01/06/20 00:05 Temperature 36.2 C L Pulse Rate 63 66 68 Respirat
[2020-01-06 10:21] LABS: Creatinine Urine 38.6 mg/dL
[2020-01-06 10:22] LABS: Sodium Urine Random 50 meq/L
--- NOTE | 2020-01-06 12:57 | PM.DS ---
DS: Admitting Diagnosis Admitting Diagnosis Admitting Diagnosis: Syncope, Acute renal failure DS: Discharge Diagnosis Discharge Diagnosis (1) Syncope: Code(s): R55 - Syncope and collapse Status: Acute Assessment and Plan: Discharge Summary (Date of service 01/06/20): Mr. Campos is a 59 y.o. male with PMH significant for hypertension and BPH who presented to the emergency department for the evaluation of two syncopal episodes when walking from the gas station back to his truck. He reported no prodrome. During the second episode, he injured his right ankle. Initial workup in the emergency department revealed oblique fracture of the distal fibula and mild HERBER. He was admitted to the hospitalist service for further evaluation and treatment. His syncope is concerning for cardiac dysrhythmia as he had no prodrome. Cardiology was consulted. Telemetry monitoring revealed sinus rhythm and sinus bradycardia with no prolonged pauses. There was no evidence for high grade AV block or tachyarrhythmias. He remained asymptomatic during the episodes of sinus bradycardia. EKG had no findings of ischemia. Chest CTA was negative for pulmonary embolism. Echocardiogram was ordered and demonstrated hyperdynamic LV systolic function with EF >70%, trace mitral regurgitation, and mild left atrial chamber enlargement. Carotid doppler US was negative for ICA stenosis. Cardiology recommended a Holter monitor at discharge due to concern for possible arrhythmia which was not demonstrated on inpatient telemetry. Dehydration was felt to be an additional possibility for his syncope as he reported diarrhea and was in the heat with mild HERBER on labs. Orthopedic surgery evaluated the patient for his right distal fibula fracture and he elected for non-operative management. CAM boot was placed. HERBER resolved. He requested to go home. He was discharged in stable condition on the afternoon of 01/06/20 and a Holter monitor was placed in the cardiology office at discharge. He was advised to follow-up with cardiology outpatient. He was advised to stay hydrated and take fall precautions. (2) Closed fracture of right distal fibula: Qualifiers: Encounter type: initial encounter Fracture morphology: other fracture Qualified Code(s): S82.831A - Other fracture of upper and lower end of right fibula, initial encounter for closed fracture Code(s): S82.831A - Other fracture of upper and lower end of right fibula, initial encounter for closed fracture Status: Acute Assessment and Plan: The patient sustained a fall due to a syncopal episode. Right ankle xray revealed an oblique fracture of the distal fibula. A splint was placed in the emergency department. Dr. Argueta was consulted and the patient elected to proceed with non-operative management. A CAM boot was placed. He received PT/OT for crutch training. Ortho advised NWB RLE and follow-up in 6 weeks outpatient. He was provided with a work note as he cannot return to work until after his follow-up appointment with orthopedic surgery. (3) Elevated serum creatinine: Code(s): R79.89 - Other specified abnormal findings of blood chemistry Status: Resolved Assessment and Plan: HERBER was felt to be pre-renal as he works out in the heat and had diarrhea the day prior to admission. Lisinopril was held and he received gentle IV fluid rehydration. Creatinine normalized. He was encouraged to stay hydrated when out in the heat. (4) Essential hypertension: Code(s): I10 - Essential (primary) hypertension Status: Acute Assessment and Plan: Blood pressures were reviewed and well-controlled. Lisinopril was held initially due to HERBER but resumed at discharge. (5) Benign prostatic hyperplasia: Code(s): N40.0 - Benign prostatic hyperplasia without lower urinary tract symptoms Status: Acute Assessment and Plan: Tamsulosin was continued. Bladder scan was
--- NOTE | 2020-01-06 22:02 | ECHO_ITS ---
Patient Info Name: Pedro Campos Age: 59 years : 1960 Gender: Male Ht: 73 in Wt: 260 lbs BSA: 2.50 m2 HR: 70 bpm BP: 111 / 40 mmHg Heart Rhythm: Sinus Rhythm Technical Quality: Fair Exam Date: 01/06/2020 8:17 AM Exam Location: [facility] Patient Status: Outpatient Admit Date: 01/04/2020 Staff Ordering Physician: Mary Matthews PA-C Professional Tutor: Honey Cosby RDCS Attending Provider: Fatuma Dan PA-C Referring Physician: Cassie JONES; Exam Type: CA echo doppler color flow Study Info Indications R55 - Syncope and collapse Complete two-dimensional, color flow and Doppler transthoracic echocardiogram is performed. Summary 1. Complete two-dimensional, color flow and Doppler transthoracic echocardiogram is performed. 2. Left ventricular chamber dimension is normal. 3. Left ventricular systolic function is hyperdynamic, estimated at >70%. 4. There is trace mitral valve regurgitation. 5. Left atrial chamber dimension is mildly enlarged. Left Ventricle Left ventricular chamber dimension is normal. Left ventricular systolic function is hyperdynamic, estimated at >70%. The left ventricular diastolic function is normal. Right Ventricle Right ventricular chamber dimension is normal. Left Atria Left atrial chamber dimension is mildly enlarged. Right Atria Right atrial chamber dimension is normal. Aortic Valve The aortic valve is normal. Pulmonic Valve The pulmonic valve is not well visualized. Mitral Valve The mitral valve has normal leaflets. There is trace mitral valve regurgitation. Tricuspid Valve The tricuspid valve leaflets are normal. Pericardium/Pleural The pericardium appears normal. Aorta The aortic root size at the sinus of Valsalva is normal. Left Ventricular Outflow Tract Name Value Normal LVOT 2D LVOT Diameter 2.0 cm LVOT Doppler LVOT Peak Gradient 8 mmHg LVOT Mean Gradient 4 mmHg LVOT VTI 26 cm LVOT VTI/AV VTI Ratio 0.9 LVOT Stroke Volume 86 ml LVOT CO 6.1 l/min LVOT CI 2.4 l/min/m2 Pulmonic Valve Name Value Normal RVOT Doppler RVOT Peak Gradient 4 mmHg PV Doppler PV Peak Gradient 10 mmHg Mitral Valve Name Value Normal MV Doppler MV Decel [place] 518 cm/s2 MV PHT
[2020-01-11 06:01] LABS: Osmolality, Urine 229 mOsm/kg (50-1200)
== END 2020-01-06 16:02 | disposition home or self-care (01) ==
LOC: ANHED 15:09 → ANH2MED 15:32
PROVIDERS: Physician Assistant; Admitting Provider Internal Medicine; Emergency Provider General Practice; PCP Family Medicine Adolescent Medicine; Visit Provider Physician Assistant
DX: R55 Syncope and collapse (principal); S82.831A Other fracture of upper and lower end of right fibula, initial encounter for closed fracture; E86.0 Dehydration; N40.1 Benign prostatic hyperplasia with lower urinary tract symptoms; R33.9 Retention of urine, unspecified; I10 Essential (primary) hypertension; R79.89 Other specified abnormal findings of blood chemistry; I69.892 Facial weakness following other cerebrovascular disease
CPT/HCPCS: 29515; 36415; 70450; 71045; 71275; 73610; 80048; 80053; 80061; 82570; 83735; 83935; 84300; 84443; 85025; 85380; 85610; 85730; 93005; 93306; 93880; 96361; 96372; 96374; 96375; 97116; 97161; 97530; 99291; A9270; G0378; J1650; J2270; J2405; J7030; J7120; Q9967

== ENCOUNTER 2021-04-10 10:12 | Emergency (ER) | payer BC, SELFPAY ==
--- NOTE | ~2021-04-10 | XR_ITS ---
EXAMINATION: XR chest 2V 04/10/2021 12:31 INDICATION: Cough and fever. Dizziness. PROCEDURE: 2 view chest COMPARISON: Comparison to multiple prior studies sequentially, with oldest reviewed study dated 10/02. FINDINGS: The lungs are clear. The cardiomediastinal silhouette is within normal limits. There are no pleural effusions. There is no pneumothorax suspected. IMPRESSION: 1: NO ACUTE CARDIOPULMONARY DISEASE. Reviewed, dictated and finalized at location B. EAR WASTE MANAGEMENT ENGINEER
--- NOTE | ~2021-04-10 | CT_ITS ---
EXAMINATION: CT abdomen pelvis w con DATE: 04/10/2021 13:23 INDICATION: Diffuse abdominal pain, nausea, vomiting and diarrhea. TECHNIQUE: Computed tomography (CT) of the abdomen and pelvis was performed with 100 mL Omnipaque-350 intravenous contrast. Automated exposure control and iterative reconstruction technique were employe d. The dose-length product was 1555.04 mGy-cm. COMPARISON: 04/07/2019 FINDINGS: Lung bases are clear. Heart size is normal. No pericardial or pleural effusion. Diffuse hepatic steat osis. Again seen are calcified gallstones within the decompressed gallbladder. No pericholecystic inf lammatory stranding to suggest acute cholecystitis. Diffuse hepatic steatosis. Spleen, pancreas, bila teral adrenal glands and left kidney are normal. 1.5 cm right renal cyst. Fluid throughout multiple n ondilated loops of small bowel and in the proximal to mid colon consistent with diarrhea. Normal retr ocecal appendix. Bladder is normal. Small bilateral fat-containing inguinal hernias. No free intraper itoneal gas or fluid. No pathologically enlarged abdominal or pelvic lymphadenopathy. Severe left and moderate right hip osteoarthritis. There are bridging osteophytes at multiple levels in the spine, c onsistent with diffuse idiopathic skeletal hyperostosis (DISH). Mild thoracic and moderate lumbar spo ndylosis. IMPRESSION: 1. Fluid throughout the otherwise normal small bowel and portions of the colon consistent with nonspe cific diarrhea. Correlate clinically for gastroenteritis. 2. Cholelithiasis. Reviewed, dictated and finalized at location A. ING MACHINE OPERATOR IMPRESSION: 1. Fluid throughout the otherwise normal small bowel and portions of the colon consistent with nonspecific diarrhea. Correlate clinically for gastroenteritis. 2. Cholelithiasis.
[2021-04-10 10:17] VITALS: BP 154/80; PULSE 75; RESP 20; TEMP 36.6; O2SAT 98
[2021-04-10 11:48] VITALS: BP 156/93; PULSE 75
--- NOTE | 2021-04-10 11:48 | ECG_ITS ---
Measurements Intervals [place] Rate: 65 P: 15 TN: 179 QRS: 45 QRSD: 102 T: 33 QT: 381 QTc: 398 Interpretive Statements SINUS RHYTHM INCOMPLETE RIGHT BUNDLE BRANCH BLOCK DELAYED PRECORDIAL R/S TRANSITION BORDERLINE ECG Electronically Signed On 04-10-2021 12:48:40 PATHOLOGY SECRETARY/TRANSCRIPTIONIST by Jhonny Cruz D.O.
[2021-04-10 12:13] VITALS: BP 150/99; PULSE 82
[2021-04-10 12:15] VITALS: BP 153/91; PULSE 92
--- NOTE | 2021-04-10 12:27 | ED.ABDPAIN ---
HPI - Abdominal Pain General Chief Complaint: Abdominal Pain Stated Complaint: Nausea,Vomiting x 3 days Time Seen by Provider: 04/10/21 11:38 Source: patient Mode of arrival: ambulatory Limitations: no limitations History of Present Illness HPI narrative: This is a 60 year old male that presents to the ER for abdominal pain x 5 days. Associated with nausea, vomiting and diarrhea. Reports today he was feeling weak which prompted him to be seen. Reports pre-syncope and feeling of lightheadedness. Also reports an itchy rash to his groin. He did use an OTC jock itch cream which initially relieved rash, but rash has returned. Denies fever, chest pain, shortness of breath, or dysuria. Related Data Home Medications Medication Instructions Recorded Confirmed tamsulosin 0.4 mg PO HS 11/06/19 03/26/20 Allergies Allergy/AdvReac Type Severity Reaction Status Date / Time No Known Allergies Allergy Unknown Verified 04/23/20 10:40 Review of Systems Review of Systems: CONSTITUTIONAL: Denies fever CARDIOVASCULAR: Denies chest pain RESPIRATORY: Denies dyspnea. GASTROINTESTINAL: Reports abdominal pain, nausea, vomiting, and diarrhea. GENITOURINARY: Denies dysuria or hematuria. SKIN: Reports rash and itching. All systems reviewed & are unremarkable except as noted in HPI and below PMFSH Past Medical History Medical History Acute dehydration Acute renal failure Anxiety Benign prostatic hyperplasia Closed fracture of right distal fibula Depression Elevated serum creatinine Essential hypertension Gastroesophageal reflux disease Metatarsalgia Syncope Surgical History Surgical History Status post lumbar microdiscectomy (~07/04/03) L5-S1. Family History Family History Mother Heart attack Hypertension Father , at age 54. Heart attack Hypertension Sibling Heart attack Lung cancer Hypertension Sibling Heart attack, Onset Age: 50 Pacemaker Social History Social History Social History: The patient lives in [place], [place] with his brother. He has never and has no children. He is a lifelong nonsmoker. He used to drink heavily in the past but has not drank for years. No illicit substance use. He works on the [employer], loading grain. He designates his brother, Kendall Campos, as his surrogate decision maker and he wishes to be a full code. Smoking status: Never smoker Spiritual care concerns: No Exam Narrative: GENERAL: Well-appearing, well-nourished, and in no acute distress. HEAD: Normocephalic, atraumatic. EYES: EOMI. ENT: Mucous membranes moist. Oropharynx without tonsillar hypertrophy exudate or other lesions. CHEST: Clear to auscultation. No respiratory distress. No wheezes rales or rhonchi HEART: Regular rate and rhythm. No murmur heard. Normal peripheral pulses. ABDOMEN: Soft, nondistended, normal active bowel sounds. Mild tenderness to palpation throughout the abdomen, without guarding. No CVA tenderness EXTREMITIES: Normal range of motion. No edema. SKIN: Warm, dry, no rash. NEURO: No focal deficits. Alert and oriented x3. PSYCH: Normal mood and affect Course Vital Signs Vital signs: Vital Signs Temperature 97.8 F 04/10/21 10:17 Pulse Rate 75 04/10/21 10:17 Respiratory Rate 20 04/10/21 10:17 Blood Pressure 154/80 H 04/10/21 10:17 Pulse Oximetry 98 04/10/21 10:17 Temperature 97.8 F 04/10/21 10:17 Pulse Rate 92 04/10/21 12:15 Respiratory Rate 20 04/10/21 10:17 Blood Pressure 153/91 H 04/10/21 12:15 Pulse Oximetry 98 04/10/21 10:17 MDM - Abdominal Pain MDM Narrative Medical decision making narrative: Patient presents to the emergency department for abdominal pain, nausea and vomiting. Present over the last couple of days. He is af
[2021-04-10 12:28] LABS: Basophils Percent Auto 0.4 % (0.2-1.2); Eosinophils Percent Auto 0.2 % (0-4.4); Hematocrit 51.9 % (42.0-52.0); Hemoglobin 17.7 g/dL (14.0-18.0); Immature Granulocyte Absolute 0.05 K/mm3 (0.00-0.031); Immature Granulocyte Percent A 0.6 % (0-0.5); Lymphocytes Absolute Auto 1.16 K/mm3 (0.9-3.2); Mean Corpuscular HGB Conc 34.1 g/dl (32-36); Mean Corpuscular Hemoglobin 31.6 pg (26-34); Mean Corpuscular Volume 92.5 fl (80-100); Mean Platelet Volume 10.3 fl (7.4-10.4); Monocytes Absolute Auto 0.8 K/mm3 (0.1-0.6); Monocytes Percent Auto 9.3 % (2.6-8.5); Neutrophils Absolute Auto 6.8 K/mm3 (1.3-6.7); Neutrophils Percent Auto 76.5 % (45.5-73.1); Platelet Count Result 251 k/mm3 (150-375); Red Blood Count 5.61 M/mm3 (4.6-6.20); Red Cell Distribution Width 12.1 % (11.5-14.5); White Blood Count 8.9 K/mm3 (4.5-10.0)
[2021-04-10 12:38] LABS: Alanine Aminotransferase 110 U/L (4-50); Albumin Level 4.6 g/dL (3.5-5.1); Alkaline Phosphatase 109 U/L (38-126); Anion Gap 12 mmol/L (8-16); Aspartate Amino Transferase 76 U/L (17-59); Bilirubin,Total 0.8 mg/dL (0.2-1.3); Blood Urea Nitrogen 18 mg/dL (9-20); Calcium 9.9 mg/dL (8.4-10.2); Carbon Dioxide 29 mmol/L (22-30); Chloride 99 mmol/L (98-107); Estimated CRCL calculation 104 ml/min; Estimated Glomerular Filt Rate > 60; Glucose 112 mg/dL (65-110); Lipase 30 U/L (23-300); Potassium 4.9 mmol/L (3.4-5.0); Sodium 140 mmol/L (137-145)
[2021-04-10] MEDS: ONDANSETRON INJ 4 MG/2 ML VIAL IV PUSH (12:48)
[2021-04-10] MEDS: SODIUM CHLORIDE 0.9% IV 1,000 ML 999 ML IV CONT (12:49)
[2021-04-10 16:05] LABS: Add Urine Microscopic? YES; Appearance Urine Clear (Clear); Bilirubin Urine Negative (Negative); Blood Urine Negative (Negative); Color Urine Yellow (Yellow); Glucose Urine UA Negative (Negative); Ketones Urine Negative (Negative); Leukocyte Esterase Ur Negative LEU/UL (Negative); Mucus Urine Few /lpf; Nitrate Urine Negative (Negative); Protein Urine Negative (Negative); RBC Urine 0-2 /hpf (0-2); Squamous Epithelial Cell Urine Occasional /hpf (Few); WBC Urine 0-3 /hpf
[2021-04-10 17:15] VITALS: BP 143/82; PULSE 74; RESP 18; O2SAT 98
== END 2021-04-10 17:16 | disposition home or self-care (01) ==
PROVIDERS: Physician Assistant; Emergency Provider Emergency Medicine; PCP Family Medicine Adolescent Medicine
DX: K52.9 Noninfective gastroenteritis and colitis, unspecified (principal); I10 Essential (primary) hypertension; F41.9 Anxiety disorder, unspecified; F32.9 Major depressive disorder, single episode, unspecified
CPT/HCPCS: 36415; 71046; 74177; 80053; 81001; 83690; 85025; 93005; 96361; 96374; 99284; J2405; J7030; Q9967

== ENCOUNTER 2021-11-17 12:17 | Emergency (ER) | payer BC, SELFPAY ==
--- NOTE | ~2021-11-17 | CT_ITS ---
EXAMINATION: CT abdomen pelvis wo con DATE: 11/17/2021 14:28 INDICATION: Right flank pain TECHNIQUE: Computed tomography (CT) of the abdomen and pelvis was performed without intravenous contr ast. The dose-length product was 781.13 mGy-cm. Automated exposure control and iterative reconstructi on technique were employed. COMPARISON: CT dated 04/10/2021. FINDINGS: Lung bases are unremarkable. Heart size normal. No significant pleural or pericardial effus ion. There are gallstones. The liver, spleen, pancreas, adrenal glands and left kidney are unremarkab le. Subtle low density lesion right kidney, most likely benign cysts. No ureteral stones or hydroneph rosis. Nonobstructive bowel gas pattern. Bladder is decompressed. Colonic diverticulosis without evid ence for diverticulitis. There is severe osteoarthritis of the hips, left greater than right. IMPRESSION: 1. No acute abdominal abnormality. 2: Cholelithiasis. Recommend correlation with ultrasound. 3: Severe osteoarthritis of the hips. Reviewed, dictated and finalized at location A.
[2021-11-17 12:26] VITALS: BP 170/76; PULSE 67; RESP 20; TEMP 37; O2SAT 100
[2021-11-17 13:15] LABS: Appearance Urine Cloudy (Clear); Bilirubin Urine Negative (Negative); Blood Urine 3+ (Negative); Color Urine Yellow (Yellow); Glucose Urine UA Negative (Negative); Ketones Urine Negative (Negative); Leukocyte Esterase Ur 2+ LEU/UL (Negative); Nitrate Urine Negative (Negative); Protein Urine 1+ mg/dL (Negative); Specific Grav Ur >= 1.030 (1.001-1.035); pH Urine 5.5 (5.0-9.0)
[2021-11-17 13:16] LABS: Add Urine Microscopic? YES
[2021-11-17 13:24] LABS: Bacteria Urine Trace /hpf; Mucus Urine Rare /lpf; RBC Urine >75 /hpf (0-2); Squamous Epithelial Cell Urine Few /hpf (Few); WBC Urine >75 /hpf
[2021-11-17 13:39] LABS: Alanine Aminotransferase 37 U/L (6-50); Albumin Level 4.2 g/dL (3.5-5.1); Alkaline Phosphatase 97 U/L (38-126); Anion Gap 7 mmol/L (8-16); Aspartate Amino Transferase 34 U/L (17-59); Bilirubin,Total 0.6 mg/dL (0.2-1.3); Blood Urea Nitrogen 14 mg/dL (9-20); Calcium 9.1 mg/dL (8.4-10.2); Carbon Dioxide 28 mmol/L (22-30); Chloride 104 mmol/L (98-107); Estimated CRCL calculation 115 ml/min; Estimated Glomerular Filt Rate > 60; Glucose 107 mg/dL (65-110); Potassium 4.7 mmol/L (3.4-5.0); Sodium 139 mmol/L (137-145)
[2021-11-17] MEDS: KETOROLAC 30 MG/ML VIAL (*BKC) IV PUSH (14:08)
--- NOTE | 2021-11-17 14:50 | ED.GENADULT ---
HPI - General Adult General Chief complaint: Urogenital-Male Stated complaint: blood in urine Time Seen by Provider: 11/17/21 13:29 History of Present Illness HPI narrative: 61 male presents emergency room states he woke up during the night with some pain to the right portion of his back. He was unsure if this was musculoskeletal in nature. He has a history in the past of a kidney stone so is not sure that that was what caused the pain as well. Denies any pain rating around to the front side of his abdomen. However this morning he got up he was having some urinary frequency and noted some blood in his urine subsequent Concerned and came to emergency room for evaluation. He had been on Flomax in the past but ran out of it a month or so ago. He try to get refill at the pharmacy and they stated go back and see the physician. Denies any associated chills or fevers. Denies any trauma or injury to his back recently. Related Data Home Medications Medication Instructions Recorded Confirmed tamsulosin 0.4 mg capsule 0.4 mg PO HS 11/06/19 08/09/21 Allergies Allergy/AdvReac Type Severity Reaction Status Date / Time No Known Allergies Allergy Unknown Verified 09/26/21 09:40 Review of Systems Review of Systems: CONSTITUTIONAL: Denies fever, chills, or sweats. EYES: Denies visual changes, redness, or discharge. ENT: Denies rhinorrhea, congestion, sore throat, or otalgia. CARDIOVASCULAR: Denies chest pain, palpitations, or edema. RESPIRATORY: Denies cough or dyspnea. GASTROINTESTINAL: Denies abdominal pain, : Hematuria and frequency SKIN: Denies rash or itching. MUSCULOSKELETAL: Pain right lower back NEUROLOGIC: Denies headache, numbness, or weakness. PSYCHIATRIC: Denies anxiety or depression. [facility] Past Medical History Medical History Anxiety Benign prostatic hyperplasia Closed fracture of right distal fibula Depression Essential hypertension Gastroesophageal reflux disease Surgical History Surgical History Status post lumbar microdiscectomy (~07/04/03) L5-S1. Family History Family History Mother Heart attack Hypertension Father , at age 54. Heart attack Hypertension Sibling Heart attack Lung cancer Hypertension Sibling Heart attack, Onset Age: 50 Pacemaker Social History Social History Social History: The patient lives in [place], [place] with his brother. He has never and has no children. He is a lifelong nonsmoker. He used to drink heavily in the past but has not drank for years. No illicit substance use. He works on the [employer], loading grain. He designates his brother, Kendall Campos, as his surrogate decision maker and he wishes to be a full code. Smoking status: Never smoker Second hand tobacco smoke exposure: No Alcohol intake: never Substance use: never Substance use type: does not use Gender identity (if verbalized by the patient): Male Sexual Orientation (if Verbalized by the Patient): Straight or Heterosexual Spiritual care concerns: No Agree to blood products: Yes Exam Narrative: APPEARANCE: Well appearing, no pain or distress, well-nourished. Head normocephalic and atraumatic. EYES: PERRLA/EOMI, conjunctivae very clear. NOSE: Normal with no drainage EARS:TMS clear Blas Monson, with good light reflex. THROAT: Pharynx clear, no exudate. NECK: Supple. No adenopathy, no masses. RESPIRATORY: Airway patent, respirations nonlabored. Clear to auscultation bilaterally, no rales, rhonchi, wheezing. CARDIOVASCULAR: Regular rate and rhythm without murmurs, rubs, or gallops. ABDOMINAL: Soft, nontender, nondistended, no hepatosplenomegaly Musculoskeletal: Moves all extremities. Strength/ROM intact, No edema, No calf tenderness. NEURO:
[2021-11-17 14:58] VITALS: BP 161/95; PULSE 63; RESP 20; O2SAT 99
== END 2021-11-17 15:00 | disposition home or self-care (01) ==
PROVIDERS: Physician Assistant; Emergency Provider Emergency Medicine; PCP Family Medicine Adolescent Medicine
DX: N39.0 Urinary tract infection, site not specified (principal); M54.9 Dorsalgia, unspecified; N40.0 Benign prostatic hyperplasia without lower urinary tract symptoms; I10 Essential (primary) hypertension; K21.9 Gastro-esophageal reflux disease without esophagitis; Z87.442 Personal history of urinary calculi; K80.20 Calculus of gallbladder without cholecystitis without obstruction; M16.0 Bilateral primary osteoarthritis of hip
CPT/HCPCS: 36415; 74176; 80053; 81001; 87077; 87086; 87088; 96374; 99284; J1885

== ENCOUNTER 2023-02-10 15:17 | Outpatient (CLI) | payer BC, SELFPAY ==
--- NOTE | ~2023-02-10 | XR_ITS ---
EXAMINATION: XR hip LT min 2V DATE: 02/10/2023 15:59 INDICATION: Severe left hip pain. TECHNIQUE: 2 views of left hip were obtained. COMPARISON: None. FINDINGS: Bone alignment is normal. No fracture. There is severe left hip osteoarthritis. IMPRESSION: 1. Severe left hip osteoarthritis. Reviewed, dictated and finalized at location E.
== END 2023-02-10 15:18 ==
PROVIDERS: PCP Family Medicine Adolescent Medicine; Visit Provider Family Medicine Adolescent Medicine
DX: M16.12 Unilateral primary osteoarthritis, left hip (principal); M25.552 Pain in left hip
CPT/HCPCS: 73502

== ENCOUNTER 2023-02-19 10:22 | Outpatient (CLI) | payer BC, SELFPAY ==
--- NOTE | 2023-02-19 11:12 | ECG_ITS ---
Measurements Intervals [place] Rate: 55 P: 10 MD: 198 QRS: 55 QRSD: 100 T: 14 QT: 414 QTc: 399 Interpretive Statements SINUS BRADYCARDIA WITH MARKED SINUS ARRHYTHMIA INCOMPLETE RIGHT BUNDLE BRANCH BLOCK [90+ ms QRS DURATION, TERMINAL R IN V1/V2, 40+ ms S IN I/aVL/V4/V5/V6] BORDERLINE ECG COMPARED TO ECG 04/10/2021 12:44:45 SINUS BRADYCARDIA NOW PRESENT SINUS ARRHYTHMIA NOW PRESENT Electronically Signed On 02-19-2023 13:33:27 CDT by Lei Mackenzie M.D.
[2023-02-19 12:15] LABS: Basophils Percent Auto 0.5 % (0.2-1.2); Eosinophils Absolute Auto 0.1 K/mm3 (0-0.3); Eosinophils Percent Auto 0.8 % (0-4.4); Hematocrit 46.2 % (42.0-52.0); Hemoglobin 15.3 g/dL (14.0-18.0); Immature Granulocyte Absolute 0.07 K/mm3 (0.00-0.031); Lymphocytes Percent Auto 21.8 % (18.3-44.2); Mean Corpuscular HGB Conc 33.1 g/dl (32-36); Mean Corpuscular Hemoglobin 31.9 pg (26-34); Mean Corpuscular Volume 96.3 fl (80-100); Mean Platelet Volume 10.8 fl (7.4-10.4); Monocytes Absolute Auto 0.7 K/mm3 (0.1-0.6); Monocytes Percent Auto 9.1 % (2.6-8.5); Neutrophils Absolute Auto 4.9 K/mm3 (1.3-6.7); Neutrophils Percent Auto 66.8 % (45.5-73.1); Platelet Count Result 212 k/mm3 (150-375); Red Cell Distribution Width 12.5 % (11.5-14.5); White Blood Count 7.3 K/mm3 (4.5-10.0)
[2023-02-19 12:25] LABS: Appearance Urine Clear (Clear); Bilirubin Urine Negative (Negative); Blood Urine Negative (Negative); Color Urine Yellow (Yellow); Glucose Urine UA Negative (Negative); Ketones Urine Negative (Negative); Leukocyte Esterase Ur Negative LEU/UL (Negative); Nitrate Urine Negative (Negative); Protein Urine Negative (Negative); Specific Grav Ur 1.013 (1.001-1.035); pH Urine 5.5 (5.0-9.0)
[2023-02-19 12:27] LABS: Anion Gap 8 mmol/L (8-16); Blood Urea Nitrogen 9 mg/dL (9-20); Calcium 9.5 mg/dL (8.4-10.2); Carbon Dioxide 28 mmol/L (22-30); Chloride 101 mmol/L (98-107); Estimated Glomerular Filt Rate > 60; Glucose 91 mg/dL (65-110); Potassium 4.2 mmol/L (3.4-5.0); Sodium 137 mmol/L (137-145)
[2023-02-19 12:32] LABS: Add Urine Microscopic? NO
== END 2023-02-19 10:23 | disposition home or self-care (01) ==
LOC: ANHLAB 10:23
PROVIDERS: PCP Family Medicine Adolescent Medicine; Visit Provider Nurse Practitioner Family
DX: I10 Essential (primary) hypertension (principal); M16.0 Bilateral primary osteoarthritis of hip; R00.1 Bradycardia, unspecified; I45.10 Unspecified right bundle-branch block
CPT/HCPCS: 36415; 80048; 81003; 85025; 93005

== ENCOUNTER 2023-03-10 13:49 | Outpatient (CLI) | payer BC, SELFPAY ==
[2023-03-10 16:09] LABS: Prothrombin Time 13.7 Seconds (11.1-14.7)
[2023-03-10 16:10] LABS: Partial Thromboplastin Time 26.1 SECONDS (22.3-36.8)
[2023-03-10 16:16] LABS: Albumin Level 4.5 g/dL (3.5-5.1)
[2023-03-10 16:20] LABS: Urine Cotinine NEGATIVE
== END 2023-03-10 13:50 | disposition home or self-care (01) ==
PROVIDERS: PCP Family Medicine Adolescent Medicine; Visit Provider Orthopaedic Surgery
DX: Z01.818 Encounter for other preprocedural examination (principal); M16.12 Unilateral primary osteoarthritis, left hip
CPT/HCPCS: 80307; 82040; 83036; 85610; 85730; 87081

== ENCOUNTER 2023-03-26 11:01 | Inpatient (IN) | payer BC, SELFPAY ==
[2023-03-10 14:31] VITALS: BMI 38.2
--- NOTE | 2023-03-10 14:58 | PC.NURSE ---
Report to the Outpatient Waiting Room, entrance under the green pavilion located off [facility], at time __0600 on date _03/25/23 . Planned Procedure Time: _07 . Time changes happen often and if your time is changed the preop area will call you the afternoon before. - You and your visitor will be asked to self-screen and do not enter if you have any COVID symptoms. - A mask is optional within the hospital at this time. Patients may have clear liquids (water, carbonated beverages, clear teas, apple juice) until 3 hours prior to surgery with a maximum of 20 ounces. - No food from midnight until time of surgery - Infants may have breast milk until 4 hours before surgery, formula 6 hours prior to surgery. - Children will be allowed to drink immediately following surgery. If applicable, please bring a bottle or sippy cup to assist with drinking. Juice, water, soda, and popsicles are readily available. For infants on formula, please bring formula the day of surgery. Pacifiers are allowed. Take the following medications with a SIP of water the morning of surgery: ____OXYCODONE IF NEEDED FOR PAIN DO NOT STOP ANY OF YOUR OTHER PRESCRIPTION MEDICATIONS PRIOR TO SURGERY ?EXCEPT THE FOLLOWING Medications to discontinue per physician NONE Please no make-up, nail maori, hairspray, perfume, deodorant, or body powder the day of surgery. No jewelry (including any body piercings) or valuables the day of surgery, leave them at home. Please take a shower or bath the night before, or the morning of, surgery with an antibacterial soap. Wear comfortable, loose fitting clothing. Children are encouraged to wear pajamas. - Jewelry must be removed prior to entering the operating room. Rings and piercings that are not removed may be cut off. - The hospital will not accept responsibility for valuables. - Please leave all valuables, including medications, at home the day of surgery. If you are going home after surgery, a licensed fork truck driver must drive you home. - NO public transportation without another adult if you receive anesthesia. - We recommend that an adult stay with you for 24 hours following discharge. - We also recommend that you do not drive, make important decision, drink alcoholic beverages, or take any drugs that were not prescribed by your health care provider for at least 24 hours after your discharge time. For Pediatric surgeries, we recommend two adults accompany the child home. Follow any additional instructions given to you from your surgeon. If you or anyone in your household have experienced Covid symptoms in the past week, please notify your surgeon or the nurse liaison at the phone number below for possible testing. VERBAL AND WRITTEN instructions given to __PATIENT AND BROTHER ALISSA and asked if any additional questions and then verbalized understanding. Patient advised to call surgeon office or pre surgery nurse liaison [phone] if any additional questions.
[2023-03-10 15:17] VITALS: BP 131/83; PULSE 81; RESP 18; TEMP 37.2; O2SAT 99
[2023-03-25] VITALS (12 sets, daily range): BP systolic 102–150; BP diastolic 49–76; PULSE 75–91; RESP 12–22; TEMP 36.2–36.8; O2SAT 96–100; BMI 10.0
--- NOTE | 2023-03-25 06:41 | WPDANESEPPF ---
Anes - Initial Pre Proc Eval Procedure: Operation Date: 03/25/23 07:30 Proposed Procedures p Left Total Hip Arthroplasty - Fadi Argueta MD Date/Time: 03/25/23 06:41 Surgeon: Fadi Argueta MD Pre Op Diagnosis: left hip djd Patient Data Age: 62 Gender: M Height: 1.83 m Weight: 128 kg Last Vital Signs Temp 37.2 C 03/10/23 15:17 Pulse 81 03/10/23 15:17 Resp 18 03/10/23 15:17 BP 131/83 03/10/23 15:17 Pulse Ox 99 03/10/23 15:17 O2 Del Method Room Air 03/10/23 15:17 Allergies Allergy/AdvReac Type Severity Reaction Status Date / Time No Known Allergies Allergy Unknown Verified 03/13/23 09:42 Home Medications Medication Instructions Recorded Confirmed Type tamsulosin 0.4 mg capsule (Flomax) 0.4 mg PO HS #90 caps 11/17/21 03/13/23 Rx furosemide 20 mg tablet 20 mg PO DAILY PRN edema #30 tabs 12/22/22 03/13/23 Rx oxycodone-acetaminophen 5 mg-325 1 tablet PO QID PRN pain #30 tabs 02/10/23 03/13/23 Rx mg tablet rosuvastatin 10 mg tablet 10 mg PO HS 02/10/23 03/13/23 History allopurinol 300 mg tablet 300 mg PO DAILY #90 tabs 03/04/23 03/13/23 Rx acetaminophen 500 mg capsule 500 mg PO Q6H PRN Pain 03/10/23 03/13/23 History chlorhexidine gluconate 4 % 1 applic topical DAILY #237 mL 03/11/23 03/13/23 Rx topical liquid (Hibiclens) lisinopril 20 mg tablet 20 mg PO QNOON #90 tabs 03/17/23 Rx terbinafine HCl 250 mg tablet See Rx Instructions .Route 03/17/23 Rx .COMPLEX #30 tabs Patient hx anesthesia problems: none Family hx anesthesia problems: none Results Review: All pre-operative results and documents have been reviewed as part of the pre-operative evaluation. [facility] Past Medical History Medical History (Updated 03/25/23 @ 06:42 by Arturo Hickman MD) Anxiety Benign prostatic hyperplasia Closed fracture of right distal fibula Depression Gastroesophageal reflux disease Obesity Surgical History Surgical History Status post lumbar microdiscectomy (~07/04/03) L5-S1. Family History Family History Mother Heart attack Hypertension Father , at age 54. Heart attack Hypertension Sibling Heart attack Lung cancer Hypertension Sibling Heart attack, Onset Age: 50 Pacemaker Social History Social History Social History: The patient lives in [place], [place] with his brother. He has never and has no children. He is a lifelong nonsmoker. He used to drink heavily in the past but has not drank for years. No illicit substance use. He works on [employer], loading grain. He designates his brother, Kendall Campos, as his surrogate decision maker and he wishes to be a full code. Smoking status: Never smoker Second hand tobacco smoke exposure: No Additional smoking assessment comments: DENIES ANY FORM OF TOBACCO USE Alcohol intake: never Substance use: never Substance use type: does not use Living arrangements: with family Occupation/Education: occupation Gender identity (if verbalized by the patient): Male Sexual Orientation (if Verbalized by the Patient): Straight or Heterosexual Spiritual care concerns: No Agree to blood products: Yes Anes - Eval Final PreProcedure Day of Procedure 03/25/23 06:41 Patient weight: obese Heart: regular rate and rhythm Lungs: clear to auscultation Airway: Mallampati scale class II Neurological: alert and oriented Last oral intake: >/= 8 hours ASA classification: III Emergent: no Anesthetic plan: proceed Anesthesia type and monitoring: general ETT and standard monitoring Results Review: All pre-operative results and documents have been reviewed as part of the pre-operative evaluation. Informed Consent: The patient's anesthetic plan and its attendant risks and benefits were discussed with the patient/family/P
--- NOTE | 2023-03-25 07:13 | WPDHPUPDATE1 ---
History and Physical Update Update Date/Time: 03/25/23 07:13 History and Physical has been reviewed, including an updated exam of the patient. There are NO changes in the patient's condition. Risks, benefits, and alternatives have been discussed and questions answered. Patient agrees to proceed with procedure.
[2023-03-25] MEDS: LACTATED RINGERS 1,000 ML 30 ML IV CONT ×3 (07:20→12:08)
[2023-03-25] MEDS: ACETAMINOPHEN 500 MG TABLET 1000 MG PO (07:20)
[2023-03-25] MEDS: TRANEXAMIC ACID 1,000MG/ISO100 1,000 MG/100 ML BAG 200 MG IVPB (07:20)
[2023-03-25] MEDS: ceFAZolin 3 GM/D5W 100 ML 100 ML IVPB (07:27)
[2023-03-25] MEDS: TRANEXAMIC ACID 1,000 MG/10 ML AMPUL 1000 MG IV PUSH (10:17)
--- NOTE | 2023-03-25 11:15 | W.PM.PROC2 ---
Procedure Note - Detailed Date of Procedure 03/25/23 Pre-op Diagnosis left hip djd Post-op Diagnosis Same Procedure Performed L EDDY Surgeon Fadi Argueta MD Anesthesia General Description of Procedure THE PATIENT WAS TAKEN TO THE OPERATING ROOM IN STABLE CONDITION AND WAS PLACED IN THE LATERAL DECUBITUS AND THE LEFT LOWER EXTREMITY WAS PREPPED AND DRAPED IN THE STERILE FASHION. INCISION WAS MADE IN THE POSTERIOR LATERAL SIDE OF THE HIP, DOWN TO THE FASCIA LAYER. THE FASCIA WAS INCISED. THE HIP WAS EXPOSED. THE SHORT EXTERNAL ROTATORS WERE EXPOSED. THE SCIATIC NERVE WAS IDENTIFIED. INCISION WAS MADE THROUGH THE SHORT EXTERNAL ROTATORS AND THE CAPSULE OF THE HIP JOINT. THE HIP WAS DISLOCATED. AN OSTEOTOMY WAS MADE TO THE FEMORAL NECK ABOUT 1 CM PROXIMAL TO THE LESSER TROCHANTER. THE ACETABULUM WAS EXPOSED. THERE WAS SEVERE DJD. THE ACETABULUM WAS REAMED TO 59 MM. A 59 MM TRIAL WAS PLACED IN 35 DEG OF ABDUCTION AND ANTEVERSION WAS IN ALIGNMENT WITH THE TRANS ACETABULAR LIGAMENT. THE FIT WAS EXCELLENT. THE TRIAL WAS REMOVED. A 60 MM BIOMET G7 COMPONENT WAS THEN TAPPED IN TO PLACE IN 35 DEG OF ABDUCTION AND ANTEVERSION IN ALIGNMENT WITH THE TRANSVERSE ACETABULAR LIGAMENT. THE FIT WAS EXCELLENT. THE ACETABULAR LINER WAS PLACED AND CHECKED FOR STABILITY. NEXT THE FEMUR WAS PREPARED WITH INITIAL CANAL FINDER THEN SEQUENTIAL BROACHING WITH A TAPERLOC HIP SYSTEM, UNTIL A 15 BROACH FIT WELL IN 15 OF ANTEVERSION. A -3 HIGH OFFSET NECK WITH 36 MM HEAD TRIAL WAS PLACED. THE SHUCK TEST WAS EXCELLENT AND THE STABILITY IN FLEXION AND ROTATION WAS EXCELLENT. LEG LENGTHS WERE GROSSLY EQUAL. TRIALS WERE REMOVED. A BIOMET TAPERLOC 15 STEM WAS PLACED WITH A HIGH OFFSET NECK THE FIT WAS EXCELLENT IN 15 DEG OF ANTEVERSION. A -3 CERAMIC 36 MM FEMORAL CERAMIC HEAD WAS PLACED. THE HIP WAS TRIALED AND THE STABILITY WAS EXCELLENT WERE THE LEG LENGTHS AND THE SHUCK TEST. THE WOUND WAS IRRIGATED WITH STERILE BETADINE AND WATER FOR 3 MIN. THEN WASHED AGAIN. THE CAPSULE AND THE EXTERNAL ROTATORS WERE APPROXIMATED WITH NUMBER 1 VICRYL. THE FASCIA WITH No 2 QUIL AND THE SUB CUTANEOUS LAYER WITH 2-0 ABSORBABLE SUTURE WITH A RUNNING 3-0 SUBCUTICULAR LAYER WELL. DERMABOND WAS PLACED AND STERILE DRESSING WAS APPLIED. PATIENT WAS PLACED BACK ON TO THE SUPINE POSITION AND WAS EXTUBATED Estimated Blood Loss 200 Complications No immediate complications Condition Stable Disposition PACU
[2023-03-25] MEDS: fentaNYL CITRATE INJ (*CRX) 100 MCG/2 ML VIAL 25 MCG IV PUSH ×5 (11:40→12:17)
--- NOTE | 2023-03-25 11:48 | SUR.PHASEI ---
1148: Simple mask removed per patient.
[2023-03-25] MEDS: DEXTROSE 5%/0.45% SOD CHL 1,000 ML 80 ML IV CONT (12:55)
[2023-03-25] MEDS: KETOROLAC 15 MG/ML VIAL (*BKC) IV PUSH ×2 (12:55→18:09)
--- NOTE | 2023-03-25 13:39 | PCPTNOTE ---
Attempted PT evaluation, pt refused stating come back in an hour. RN aware.
[2023-03-25] MEDS: ceFAZolin 2 GM/D5W 50 ML 2 GM/50 ML BAG IVPB ×2 (14:40→20:42)
[2023-03-25] MEDS: ONDANSETRON INJ 4 MG/2 ML VIAL IV PUSH (16:25)
[2023-03-25] MEDS: ASPIRIN 325 MG ENTERIC TABLET PO (20:41)
[2023-03-25] MEDS: FAMOTIDINE 20 MG TABLET PO (20:41)
[2023-03-25] MEDS: ROSUVASTATIN 10 MG TABLET PO (20:42)
[2023-03-25] MEDS: TAMSULOSIN HCL 0.4 MG CAPSULE PO (20:42)
--- NOTE | ~2023-03-26 | XR_ITS ---
EXAMINATION: XR surgery orthopedic DATE: 03/25/2023 09:50 INDICATION: Total left hip arthroplasty. TECHNIQUE: 2 intraoperative views of the pelvis were obtained. COMPARISON: Pelvis and hip radiographs 02/19/2023 FINDINGS: Images demonstrate a left acetabular cup in expected position. There is resection of the le ft femoral head and neck. A catheter overlies the bladder. There is severe right hip osteoarthritis. IMPRESSION: 1. Total left hip arthroplasty in progress. Reviewed, dictated and finalized at location A. RTISING SALES REPRESENTATIVE
--- NOTE | ~2023-03-26 | XR_ITS ---
EXAMINATION: XR hip LT min 2V DATE: 03/25/2023 11:43 INDICATION: Left hip arthroplasty. Postop. TECHNIQUE: 2 views of left hip were obtained. COMPARISON: Left hip radiographs 02/19/2023 FINDINGS: There is a total left hip arthroplasty in near-anatomic alignment. No fracture. There is ga s in the soft tissues, consistent with recent surgery. IMPRESSION: 1. Total left hip arthroplasty in near-anatomic alignment. Reviewed, dictated and finalized at location A. OYEE ADVISER
[2023-03-26] MEDS: KETOROLAC 15 MG/ML VIAL (*BKC) IV PUSH ×3 (00:38→11:40)
[2023-03-26] MEDS: LIDOCAINE HCL 2% GEL UROJET 10 ML PKG MUCOUS MEM (00:38)
[2023-03-26 01:00] VITALS: BP 99/46; PULSE 79; RESP 18; TEMP 37.2; O2SAT 99
[2023-03-26] MEDS: diazePAM (*CRX) 5 MG TABLET PO ×3 (04:05→21:10)
[2023-03-26] MEDS: HYDROcodone/acetaminophen (*CRX) 7.5-325 MG TABLET 2 TAB PO ×3 (04:06→17:02)
[2023-03-26 04:14] VITALS: BP 103/46; PULSE 77; RESP 20; TEMP 37.1; O2SAT 100
[2023-03-26] MEDS: ceFAZolin 2 GM/D5W 50 ML 2 GM/50 ML BAG IVPB (06:01)
[2023-03-26 06:37] LABS: Anion Gap 8 mmol/L (8-16); Blood Urea Nitrogen 23 mg/dL (9-20); Calcium 8.3 mg/dL (8.4-10.2); Carbon Dioxide 23 mmol/L (22-30); Chloride 101 mmol/L (98-107); Estimated CRCL calculation 84 ml/min; Estimated Glomerular Filt Rate > 60; Glucose 119 mg/dL (65-110); Potassium 4.4 mmol/L (3.4-5.0); Sodium 132 mmol/L (137-145)
[2023-03-26 06:52] LABS: Basophils Percent Auto 0.1 % (0.2-1.2); Hematocrit 35.7 % (42.0-52.0); Hemoglobin 11.4 g/dL (14.0-18.0); Immature Granulocyte Absolute 0.09 K/mm3 (0.00-0.031); Immature Granulocyte Percent A 0.6 % (0-0.5); Lymphocytes Absolute Auto 1.18 K/mm3 (0.9-3.2); Mean Corpuscular HGB Conc 31.9 g/dl (32-36); Mean Corpuscular Hemoglobin 31.8 pg (26-34); Mean Corpuscular Volume 99.4 fl (80-100); Mean Platelet Volume 10.6 fl (7.4-10.4); Monocytes Absolute Auto 1.4 K/mm3 (0.1-0.6); Monocytes Percent Auto 9.4 % (2.6-8.5); Neutrophils Percent Auto 81.9 % (45.5-73.1); Platelet Count Result 169 k/mm3 (150-375); Red Blood Count 3.59 M/mm3 (4.6-6.20); Red Cell Distribution Width 12.8 % (11.5-14.5); White Blood Count 14.7 K/mm3 (4.5-10.0)
[2023-03-26] MEDS: polyethylene glycoL 3350 17 GM POWD.PACK PO (08:33)
[2023-03-26] MEDS: FAMOTIDINE 20 MG TABLET PO ×2 (08:33→21:08)
[2023-03-26] MEDS: ASPIRIN 325 MG ENTERIC TABLET PO ×2 (08:33→21:08)
[2023-03-26] MEDS: SENNA/DOCUSATE SODIUM TABLET 2 TAB PO ×2 (08:33→17:01)
--- NOTE | 2023-03-26 09:30 | PM.PNORT ---
Progress Note: A&P Assessment and Plan (1) S/P total hip arthroplasty: Qualifiers: Laterality: left Qualified Code(s): Z96.642 - Presence of left artificial hip joint Code(s): Z96.649 - Presence of unspecified artificial hip joint Status: Acute Assessment and Plan: POD #1 : Left EDDY Continue PT/OT. WBAT. Walker. HIGH FALL RISK. Continue pain control. Ice Hip. Protect skin. DVT prophylaxis with Aspirin. SCDs. Incentive Spirometry Use reviewed. Monitor Dressing. Change prior to discharge. Bowel Regimen. Dispo: [facility] vs. SNF for Rehab pending progress with PT/OT Care coordination consult. (2) Urinary retention: Code(s): R33.9 - Retention of urine, unspecified Status: Acute Assessment and Plan: Difficulty with urination post op. History of BPH. Void trial again today. (3) Benign prostatic hyperplasia: Code(s): N40.0 - Benign prostatic hyperplasia without lower urinary tract symptoms Status: Acute Plan Discussed postoperative radiographs, labs, and exam as well as discharge planning and slow progress with PT/OT with attending MD, Dr. Argueta. Agrees with current plan as indicated above. Subjective Subjective Date/Time Seen: 03/26/ 09:30 Post Op day: 1 Interval history: POD #1: Left EDDY Patient with difficulty with pain with ambulation. Slow progress with PT/OT today. Otherwise, no new concerns. Review of Systems Constitutional: Constitutional: Denies chills, Denies fatigue, Denies fever(s), Denies night sweats and Denies weakness Cardiovascular: Cardiovascular: Denies chest pain, Denies lightheadedness, Denies palpitations and Denies dyspnea Respiratory: Respiratory: Denies cough, Denies dyspnea and Denies wheezing Gastrointestinal: Gastrointestinal: Denies abdominal pain, Denies diarrhea, Denies nausea and Denies vomiting Musculoskeletal: Musculoskeletal: Reports arthralgias (left hip ), Reports joint swelling (left hip ) and Denies numbness Neurologic: Denies numbness and Denies weakness Endocrine: Endocrine: Denies fatigue and Denies palpitations Allergic/Immunologic: Allergic/Immunologic: Denies wheezing Exam Const: General: comfortable and no acute distress Orientation/consciousness: patient oriented x3 Limitations: no limitations Resp: Effort & Inspection: normal respiratory effort Cardio: Rate: regular rate Rhythm: regular rhythm GI: Inspection: non-distended Skin: General skin exam: normal color and wounds noted (incision left hip C/D/I ) Wounds: wounds noted (incision left hip C/D/I ) Neuro: General: patient oriented x3 Extrem: Left lower extremity: hip/thigh Details: tenderness Location: of the hip Location: laterally and anteriorly, swelling (thigh soft ) Location: of the hip (lateral. ), abnormal ROM (limitations with internal/external rotation and flexion/extension due to recent surgical intervention ) and other (incision lateral hip c/d/i. ), knee Details: normal to inspection and normal ROM; no tenderness and no swelling, lower leg (Negative Maeve's Sign ) Details: no edema, ankle (+ankle dorsiflexion/plantarflexion ) Details: normal to inspection, no edema and normal ROM; no tenderness, no swelling and no warmth and foot Details: normal capillary refill, toes with normal ROM, vascular exam Details: dorsalis pedis pulse present and motor-sensory exam light-touch normal in all toes; no tenderness, no ecchymosis and no crepitus Psych: Mental Status: mental status grossly normal Affect: normal affect Objective Data Vital Signs Vital Signs: Vital Signs - 24 hr 03/25/23 11:31 03/25/23 11:45 03/25/23 12:00 Temperature 36.2 C L Pulse Rate 91 86 76 Respiratory Rate 12 22 H 13 Blood Pressure 115/49 L 111/70 110/61 Pulse Oximetry 100 96 98 Oxygen Delivery Simple Face Mask Room Air Nasal Cannula Oxygen Flow Rate 6 2 03/25/23 12:15 03/25/23 12:45 03/25/23 13:05 Temperature 36.3 C L 36.3 C L Pulse Rate
--- NOTE | 2023-03-26 11:16 | WPDANESPN ---
Anes - Prog Note Post-Op Date/Time: 03/26/23 11:16 Cardiovascular status: normal Respiratory status: normal Airway patency: baseline Mental status: baseline Post-Op hydration status: normal Vital Signs: Last Vital Signs Temp 37.1 C 03/26/23 04:14 Pulse 77 03/26/23 04:14 Resp 20 03/26/23 04:14 BP 103/46 L 03/26/23 04:14 Pulse Ox 100 03/26/23 04:14 O2 Del Method Room Air 03/26/23 08:43 O2 Flow Rate 2 03/25/23 13:00 Pain Score (VAS): 08/18 I/O: Intake & Output 03/25/23 03/26/23 03/26/23 23:59 07:59 15:59 Intake Total 50 550 120 Output Total 1750 Balance 50 -1200 120 Laboratory Tests 03/26/23 06:12 03/26/23 06:12 03/26/23 06:12 WBC 14.7 H RBC 3.59 L Hgb 11.4 L D Hct 35.7 L MCV 99.4 MCH 31.8 MCHC 31.9 L RDW 12.8 Plt Count 169 MPV 10.6 H Immature Gran % (Auto) 0.6 H Neut % (Auto) 81.9 H Lymph % (Auto) 8.0 L [place] % (Auto) 9.4 H Eos % (Auto) 0.0 Baso % (Auto) 0.1 L Lymph # (Auto) 1.18 [place] # (Auto) 1.4 H Eos # (Auto) 0.0 Baso # (Auto) 0.0 Abs Immat Gran (auto) 0.09 H Absolute Neuts (auto) 12.0 H Absolute Nucleated RBC 0.0 Nucleated RBC % 0.0 Sodium 132 L Potassium 4.4 Chloride 101 Carbon Dioxide 23 Anion Gap 8 BUN 23 H D Creatinine 1.10 Estim Creat Clear Calc 84 Estimated GFR > 60 Glucose 119 H Calcium 8.3 L Post-procedural complaints: none Patient Feedback: Patient satisfied with anesthetic care.
[2023-03-26 14:00] VITALS: BP 111/65; PULSE 84; RESP 20; TEMP 36.9; O2SAT 100
[2023-03-26] MEDS: FUROSEMIDE 20 MG TABLET PO (14:55)
[2023-03-26] MEDS: ROSUVASTATIN 10 MG TABLET PO (21:08)
[2023-03-26] MEDS: TAMSULOSIN HCL 0.4 MG CAPSULE PO (21:08)
[2023-03-26 21:28] VITALS: BP 122/52; PULSE 81; RESP 18; TEMP 37.2; O2SAT 100
[2023-03-27] MEDS: HYDROcodone/acetaminophen (*CRX) 7.5-325 MG TABLET 2 TAB PO ×4 (00:03→20:45)
[2023-03-27 04:36] VITALS: BP 123/53; PULSE 81; RESP 18; TEMP 36.6; O2SAT 96
--- NOTE | 2023-03-27 07:06 | WPDURCON ---
Assessment and Plan Assessment and plan (1) BPH loc w urin obs/LUTS: Code(s): N40.1 - Benign prostatic hyperplasia with lower urinary tract symptoms Status: Acute (2) Urinary retention: Code(s): R33.9 - Retention of urine, unspecified Status: Acute Assessment and Plan: Postoperative urinary retention resulting from underlying BPH complicated by adverse effects on a normal detrusor function anesthesia/analgesia, intermittent overdistention of bladder, etc. Increase Tamsulosin to 0.4mg (as long as no dizziness, hypotension). Voiding trial after 3 days with catheter (ie. Thursday) Urology Consult Note HPI Date Seen: 03/27/23 Requesting Physician: Fadi Argueta MD Primary Care Provider: Yosef Rutherford MD Consult Narrative Narrative: Pedro Campos Jr. is a 62 year old male With longstanding BPH that is, subjective well controlled with tamsulosin. Following total hip arthroplasty he has developed urinary retention and failed 2 voiding trials. At he reports only intermittent slowing of his stream other significant irritable or obstructive symptoms. He has no history tract infection or hematuria. Review of Systems Cardiovascular: Cardiovascular: Denies chest pain, Denies lightheadedness, Denies palpitations and Denies dyspnea Respiratory: Respiratory: Denies dyspnea Gastrointestinal: Gastrointestinal: Denies diarrhea, Denies nausea and Denies vomiting Genitourinary: Genitourinary: Denies hematuria and Denies dysuria Endocrine: Endocrine: Denies palpitations [facility] Past Medical History Medical History (Updated 03/27/23 @ 07:08 by Neil Valencia MD) Anxiety Benign prostatic hyperplasia Closed fracture of right distal fibula Depression Gastroesophageal reflux disease Obesity Urinary retention Surgical History Surgical History (Updated 03/26/23 @ 10:07 by KEITH Carrington) History of lumbar discectomy (2003) L5-S1 History of total left hip arthroplasty (03/2023) S/P total hip arthroplasty Family History Family History Mother Heart attack Hypertension Father , at age 54. Heart attack Hypertension Sibling Heart attack Lung cancer Hypertension Sibling Heart attack, Onset Age: 50 Pacemaker Social History Social History Social History: The patient lives in [place], [place] with his brother. He has never and has no children. He is a lifelong nonsmoker. He used to drink heavily in the past but has not drank for years. No illicit substance use. He works on [employer], loading grain. He designates his brother, Kendall Campos, as his surrogate decision maker and he wishes to be a full code. Smoking status: Never smoker Second hand tobacco smoke exposure: No Additional smoking assessment comments: DENIES ANY FORM OF TOBACCO USE Alcohol intake: never Substance use: never Substance use type: does not use Lack of Transportation: No Lack of Food: Never True Current Housing: I Have Housing Concerned About Future Housing: No Difficulty Paying Gas/Electric Bills: No Difficulty Paying for Meds: No Currently Unemployed: No Education: High School Diploma/GED Difficulty w/ Childcare or Family Care: No Living arrangements: with family Occupation/Education: occupation Gender identity (if verbalized by the patient): Male Sexual Orientation (if Verbalized by the Patient): Straight or Heterosexual Spiritual care concerns: No Agree to blood products: Yes Meds Home Medications and Allergies Home Medications Medication Instructions Recorded Confirmed Type tamsulosin 0.4 mg capsule (Flomax) 0.4 mg PO HS #90 caps 11/17/21 03/13/23 Rx furosemide 20 mg tablet 20 mg PO DAILY PRN edema #30 tabs 12/22/22 03/13/23 Rx oxycodone-acetaminophen 5 mg-325 1 tablet PO QID PRN pain #30 tabs 10/0
--- NOTE | 2023-03-27 08:16 | PCPTNOTE ---
Patient refused treatment this session due to L hip pain. Patient reported hip pain at a /. RN aware.
[2023-03-27] MEDS: SENNA/DOCUSATE SODIUM TABLET 2 TAB PO ×2 (08:21→16:31)
[2023-03-27] MEDS: ASPIRIN 325 MG ENTERIC TABLET PO ×2 (08:22→20:44)
[2023-03-27] MEDS: TAMSULOSIN HCL 0.4 MG CAPSULE PO ×2 (08:22→16:31)
[2023-03-27] MEDS: polyethylene glycoL 3350 17 GM POWD.PACK PO (08:22)
[2023-03-27] MEDS: FAMOTIDINE 20 MG TABLET PO ×2 (08:22→20:44)
--- NOTE | 2023-03-27 09:11 | PCOTNOTE ---
The patient treatment was not able to be completed in the morning patient reported he was in to much pain. Patient is agreeable to try after pain medication. Will plan to continue treatment per plan of care.
--- NOTE | 2023-03-27 09:27 | PM.PNORT ---
Progress Note: A&P Assessment and Plan (1) S/P total hip arthroplasty: Qualifiers: Laterality: left Qualified Code(s): Z96.642 - Presence of left artificial hip joint Code(s): Z96.649 - Presence of unspecified artificial hip joint Status: Acute Assessment and Plan: POD #2: Left EDDY Continue PT/OT. WBAT. Walker. HIGH FALL RISK. Continue pain control. Ice Hip. Protect skin. DVT prophylaxis with Aspirin. SCDs. Incentive Spirometry Use reviewed. Monitor Dressing. Change prior to discharge. Bowel Regimen. Dispo: [facility] vs. SNF for Rehab pending progress with PT/OT Care coordination consult. (2) Urinary retention: Code(s): R33.9 - Retention of urine, unspecified Status: Acute Assessment and Plan: Difficulty with urination post op. History of BPH. Failed void trial. Appreciate urology recommendations. (3) Benign prostatic hyperplasia: Code(s): N40.0 - Benign prostatic hyperplasia without lower urinary tract symptoms Status: Acute Plan Discussed postoperative radiographs, labs, and exam as well as discharge planning and slow progress with PT/OT with attending MD, Dr. Argueta. Agrees with current plan as indicated above. Subjective Subjective Date/Time Seen: 03/27/23 09:27 Post Op day: 2 Interval history: POD #2: Left EDDY Slow progress with PT/OT today. Urinary retention post operative. Urology consulted. Otherwise, no new concerns. Review of Systems Cardiovascular: Cardiovascular: Denies chest pain, Denies lightheadedness, Denies palpitations and Denies dyspnea Respiratory: Respiratory: Denies dyspnea Gastrointestinal: Gastrointestinal: Denies diarrhea, Denies nausea and Denies vomiting Endocrine: Endocrine: Denies palpitations Exam Const: General: comfortable and no acute distress Orientation/consciousness: patient oriented x3 Limitations: no limitations Resp: Effort & Inspection: normal respiratory effort Cardio: Rate: regular rate Rhythm: regular rhythm GI: Inspection: non-distended Skin: General skin exam: normal color and wounds noted (incision left hip C/D/I ) Wounds: wounds noted (incision left hip C/D/I ) Neuro: General: patient oriented x3 Extrem: Left lower extremity: hip/thigh Details: tenderness Location: of the hip Location: laterally and anteriorly, swelling (thigh soft ) Location: of the hip (lateral. ), abnormal ROM (limitations with internal/external rotation and flexion/extension due to recent surgical intervention ) and other (incision lateral hip c/d/i. ), knee Details: normal to inspection and normal ROM; no tenderness and no swelling, lower leg (Negative Maeve's Sign ) Details: no edema, ankle (+ankle dorsiflexion/plantarflexion ) Details: normal to inspection, no edema and normal ROM; no tenderness, no swelling and no warmth and foot Details: normal capillary refill, toes with normal ROM, vascular exam Details: dorsalis pedis pulse present and motor-sensory exam light-touch normal in all toes; no tenderness, no ecchymosis and no crepitus Psych: Mental Status: mental status grossly normal Affect: normal affect Objective Data Vital Signs Vital Signs: Vital Signs - 24 hr 03/26/23 14:00 03/26/23 21:28 03/26/23 20:00 Temperature 36.9 C 37.2 C Pulse Rate 84 81 Respiratory Rate 20 18 Blood Pressure 111/65 122/52 L Pulse Oximetry 100 100 Oxygen Delivery Room Air 03/27/23 04:36 Temperature 36.6 C Pulse Rate 81 Respiratory Rate 18 Blood Pressure 123/53 L Pulse Oximetry 96 Oxygen Delivery Intake/Output Intake/Output: Intake & Output 03/24/23 03/25/23 03/26/23 03/27/23 23:59 23:59 23:59 23:59 Intake Total 950 1752 700 Output Total 1750 2100 Balance 950 2 -1400 Meds/Results Medications: Active Medications Generic Name Dose Route Start Last Admin Trade Name Freq PRN Reason Stop Dose Admin Acetaminophen 650 mg 03/25/23 12:26 Acetaminophen 325 Mg Tablet PO Q6H [place]
[2023-03-27] MEDS: FUROSEMIDE 20 MG TABLET PO (12:17)
[2023-03-27 15:19] VITALS: BP 134/71; PULSE 84; RESP 16; TEMP 36.6; O2SAT 99
[2023-03-27] MEDS: ROSUVASTATIN 10 MG TABLET PO (20:44)
[2023-03-27 21:17] VITALS: BP 142/72; PULSE 87; RESP 18; TEMP 37.4; O2SAT 100
[2023-03-28] MEDS: HYDROcodone/acetaminophen (*CRX) 7.5-325 MG TABLET 2 TAB PO ×3 (04:15→17:14)
[2023-03-28 08:17] VITALS: O2SAT 98
[2023-03-28 10:00] VITALS: BP 124/70; PULSE 87; RESP 18; TEMP 36.7; O2SAT 93
[2023-03-28] MEDS: TAMSULOSIN HCL 0.4 MG CAPSULE PO ×2 (10:07→17:13)
[2023-03-28] MEDS: ASPIRIN 325 MG ENTERIC TABLET PO ×2 (10:07→21:13)
[2023-03-28] MEDS: FAMOTIDINE 20 MG TABLET PO ×2 (10:07→21:12)
[2023-03-28] MEDS: SENNA/DOCUSATE SODIUM TABLET 2 TAB PO ×2 (10:07→17:14)
[2023-03-28] MEDS: polyethylene glycoL 3350 17 GM POWD.PACK PO (10:08)
--- NOTE | 2023-03-28 11:16 | PM.PNORT ---
Progress Note: A&P Assessment and Plan (1) Urinary retention: Code(s): R33.9 - Retention of urine, unspecified Status: Acute (2) S/P total hip arthroplasty: Qualifiers: Laterality: left Qualified Code(s): Z96.642 - Presence of left artificial hip joint Code(s): Z96.649 - Presence of unspecified artificial hip joint Status: Acute Assessment and Plan: POD 3 DOING WELL. WE WILL AWAIT SNF AND THEN DISCHARGE WITH [facility] PER UROLOGY RECOMMENDATIONS Subjective Subjective Date/Time Seen: 03/28/23 11:16 Interval history: POD 3 DOING WELL. [facility] STILL IN. WE NARE AWAITING SNF/REHAB PLACEMENT. NO CALF PAIN OR THIGH PAIN Exam Extrem: Other: VSS AFEBRILE DRESSING [place] INTACT NEG HOMANS SIGN THIGH AND CALF SOFT Objective Data Vital Signs Vital Signs: Vital Signs - 24 hr 03/27/23 15:19 03/27/23 21:17 03/27/23 20:00 Temperature 36.6 C 37.4 C Pulse Rate 84 87 Respiratory Rate 16 18 Blood Pressure 134/71 142/72 H Pulse Oximetry 99 100 Oxygen Delivery Room Air 03/28/23 08:17 Temperature Pulse Rate Respiratory Rate Blood Pressure Pulse Oximetry 98 Oxygen Delivery Room Air Intake/Output Intake/Output: Intake & Output 03/25/23 03/26/23 03/27/23 03/28/23 23:59 23:59 23:59 23:59 Intake Total 950 1752 3690 850 Output Total 1750 4700 2625 Balance 950 1 -0199 -0156 Meds/Results Medications: Active Medications Generic Name Dose Route Start Last Admin Trade Name Freq PRN Reason Stop Dose Admin Acetaminophen 650 mg 03/25/23 12:26 Acetaminophen 325 Mg Tablet PO Q6H PRN Mild Pain (1-3) or Fever Hydrocodone Bitart/Acetaminophen 1 tab 03/25/23 12:26 Hydrocodone/Acetaminophen (*Crx) 7.5-325 Mg Tablet PO Q3H PRN Pain Rated 4-6 Hydrocodone Bitart/Acetaminophen 2 tab 03/25/23 12:26 03/28/23 10:08 Hydrocodone/Acetaminophen (*Crx) 7.5-325 Mg Tablet PO 2 tab Q6H PRN Administration Pain Rated 7-10 Aspirin 325 mg 03/25/23 21:00 03/28/23 10:07 Aspirin 325 Mg Enteric Tablet PO 325 mg Q12HR TORI Administration Diazepam 5 mg 03/25/23 12:26 03/26/23 21:10 Diazepam (*Crx) 5 Mg Tablet PO 5 mg Q6H PRN Administration Anxiety/Muscle Spasm Famotidine 20 mg 03/25/23 21:00 03/28/23 10:07 Famotidine 20 Mg Tablet PO 20 mg Q12HR TORI Administration Furosemide 20 mg 03/25/23 12:26 03/27/23 12:17 Furosemide 20 Mg Tablet PO 20 mg DAILY PRN Administration edema Hydroxyzine HCl 50 mg 03/25/23 12:26 Hydroxyzine Hcl 25 Mg Tablet PO Q4H PRN Itching Naloxone HCl 0.1 mg 03/25/23 12:26 Naloxone Hcl 0.4 Mg/Ml Vial IV PUSH Q2M PRN Opiate Reversal Ondansetron HCl 4 mg 03/25/23 12:26 03/25/23 16:25 Ondansetron Inj 4 Mg/2 Ml Vial IV PUSH 4 mg Q4H PRN Administration Nausea And Vomiting Polyethylene Glycol 17 gm 03/26/23 09:00 03/28/23 10:08 Polyethylene Glycol 3350 17 Gm Powd.Pack PO 17 gm QAM TORI Administration Rosuvastatin Calcium 10 mg 03/25/23 21:00 03/27/23 20:44 Rosuvastatin 10 Mg Tablet PO 10 mg HS TORI Administration Senna/Docusate Sodium 2 tab 03/25/23 17:00 03/28/23 10:07 Senna/Docusate Sodium Tablet PO 2 tab BID TORI Administration Tamsulosin HCl 0.4 mg 03/27/23 09:00 03/28/23 10:07 Tamsulosin Hcl 0.4 Mg Capsule PO 0.4 mg BID TORI Administration Radiology Results: ITS Impressions Intraoperative X-Ray 03/25/23 11:11 IMPRESSION: 1. Total left hip arthroplasty in progress. Hip X-Ray 03/25/23 11:56 IMPRESSION: 1. Total left hip arthroplasty in near-anatomic alignment.
[2023-03-28] MEDS: MAGNESIUM HYDROXIDE SUSP 30 ML UDC PO (12:00)
[2023-03-28 16:00] VITALS: BP 136/77; PULSE 81; RESP 16; TEMP 36.5; O2SAT 100
[2023-03-28] MEDS: ROSUVASTATIN 10 MG TABLET PO (21:13)
[2023-03-28 22:35] VITALS: BP 130/56; PULSE 82; RESP 20; TEMP 36.4; O2SAT 98
[2023-03-29 06:00] VITALS: BP 152/72; PULSE 79; RESP 20; TEMP 37; O2SAT 98
[2023-03-29] MEDS: SENNA/DOCUSATE SODIUM TABLET 2 TAB PO ×2 (08:28→16:11)
[2023-03-29] MEDS: TAMSULOSIN HCL 0.4 MG CAPSULE PO ×2 (08:28→16:11)
[2023-03-29] MEDS: ASPIRIN 325 MG ENTERIC TABLET PO ×2 (08:28→21:56)
[2023-03-29] MEDS: polyethylene glycoL 3350 17 GM POWD.PACK PO (08:28)
[2023-03-29] MEDS: FAMOTIDINE 20 MG TABLET PO ×2 (08:28→21:56)
[2023-03-29] MEDS: HYDROcodone/acetaminophen (*CRX) 7.5-325 MG TABLET 2 TAB PO (08:31)
[2023-03-29 08:44] VITALS: O2SAT 98
--- NOTE | 2023-03-29 12:02 | PCPTNOTE ---
Attempted to see pt x4 for physical therapy this AM and was unable, will cont per POC and try to see pt for afternoon session.
[2023-03-29 14:00] VITALS: BP 140/61; PULSE 77; RESP 18; TEMP 36.7; O2SAT 99
--- NOTE | 2023-03-29 14:24 | PM.PNORT ---
Progress Note: A&P Assessment and Plan (1) S/P total hip arthroplasty: Qualifiers: Laterality: left Qualified Code(s): Z96.642 - Presence of left artificial hip joint Code(s): Z96.649 - Presence of unspecified artificial hip joint Status: Acute Assessment and Plan: POD 4 IMPROVING. HE WILL REQUIRE SNF VS REHAB. CONTINUE CURRENT MANAGEMENT Subjective Subjective Date/Time Seen: 03/29/23 14:24 Interval history: POD 4 WITH URINARY RETENTION. HIP IS DOING WELL. NO CALF PAIN NO THIGH PAIN Exam Extrem: Other: VSS AFEBRILE DRESSING DRY [place] INTACT NEG HOMANS SIGN, CALF AND THIGH NON TENDER Objective Data Vital Signs Vital Signs: Vital Signs - 24 hr 03/28/23 16:00 03/28/23 22:35 03/28/23 20:00 Temperature 36.5 C 36.4 C L Pulse Rate 81 82 Respiratory Rate 16 20 Blood Pressure 136/77 130/56 L Pulse Oximetry 100 98 Oxygen Delivery Room Air 03/29/23 06:00 03/29/23 08:44 Temperature 37.0 C Pulse Rate 79 Respiratory Rate 20 Blood Pressure 152/72 H Pulse Oximetry 98 98 Oxygen Delivery Room Air Intake/Output Intake/Output: Intake & Output 03/26/23 03/27/23 03/28/23 03/29/23 23:59 23:59 23:59 23:59 Intake Total 1752 3690 1630 1190 Output Total 1750 4700 2625 3200 Balance 2 -1010 -995 -2010 Meds/Results Medications: Active Medications Generic Name Dose Route Start Last Admin Trade Name Freq PRN Reason Stop Dose Admin Acetaminophen 650 mg 03/25/23 12:26 Acetaminophen 325 Mg Tablet PO Q6H PRN Mild Pain (1-3) or Fever Hydrocodone Bitart/Acetaminophen 1 tab 03/25/23 12:26 Hydrocodone/Acetaminophen (*Crx) 7.5-325 Mg Tablet PO Q3H PRN Pain Rated 4-6 Hydrocodone Bitart/Acetaminophen 2 tab 03/25/23 12:26 03/29/23 08:31 Hydrocodone/Acetaminophen (*Crx) 7.5-325 Mg Tablet PO 2 tab Q6H PRN Administration Pain Rated 7-10 Aspirin 325 mg 03/25/23 21:00 03/29/23 08:28 Aspirin 325 Mg Enteric Tablet PO 325 mg Q12HR TORI Administration Diazepam 5 mg 03/25/23 12:26 03/26/23 21:10 Diazepam (*Crx) 5 Mg Tablet PO 5 mg Q6H PRN Administration Anxiety/Muscle Spasm Famotidine 20 mg 03/25/23 21:00 03/29/23 08:28 Famotidine 20 Mg Tablet PO 20 mg Q12HR TORI Administration Furosemide 20 mg 03/25/23 12:26 03/27/23 12:17 Furosemide 20 Mg Tablet PO 20 mg DAILY PRN Administration edema Hydroxyzine HCl 50 mg 03/25/23 12:26 Hydroxyzine Hcl 25 Mg Tablet PO Q4H PRN Itching Magnesium Hydroxide 30 ml 03/28/23 11:39 03/28/23 12:00 Magnesium Hydroxide Susp 30 Ml Udc PO 30 ml QAM PRN Administration Constipation Naloxone HCl 0.1 mg 03/25/23 12:26 Naloxone Hcl 0.4 Mg/Ml Vial IV PUSH Q2M PRN Opiate Reversal Ondansetron HCl 4 mg 03/25/23 12:26 03/25/23 16:25 Ondansetron Inj 4 Mg/2 Ml Vial IV PUSH 4 mg Q4H PRN Administration Nausea And Vomiting Polyethylene Glycol 17 gm 03/26/23 09:00 03/29/23 08:28 Polyethylene Glycol 3350 17 Gm Powd.Pack PO 17 gm QAM TORI Administration Rosuvastatin Calcium 10 mg 03/25/23 21:00 03/28/23 21:13 Rosuvastatin 10 Mg Tablet PO 10 mg HS TORI Administration Senna/Docusate Sodium 2 tab 03/25/23 17:00 03/29/23 08:28 Senna/Docusate Sodium Tablet PO 2 tab BID TORI Administration Tamsulosin HCl 0.4 mg 03/27/23 09:00 03/29/23 08:28 Tamsulosin Hcl 0.4 Mg Capsule PO 0.4 mg BID TORI Administration Radiology Results: ITS Impressions Intraoperative X-Ray 03/25/23 11:11 IMPRESSION: 1. Total left hip arthroplasty in progress. Hip X-Ray 03/25/23 11:56 IMPRESSION: 1. Total left hip arthroplasty in near-anatomic alignment.
[2023-03-29] MEDS: HYDROcodone/acetaminophen (*CRX) 7.5-325 MG TABLET 1 TAB PO (16:12)
[2023-03-29] MEDS: ROSUVASTATIN 10 MG TABLET PO (21:56)
[2023-03-29 22:00] VITALS: BP 149/60; PULSE 83; RESP 18; TEMP 37.2; O2SAT 96
[2023-03-30 06:00] VITALS: BP 136/65; PULSE 80; RESP 20; TEMP 37; O2SAT 99
[2023-03-30] MEDS: HYDROcodone/acetaminophen (*CRX) 7.5-325 MG TABLET 2 TAB PO ×2 (07:29→16:19)
[2023-03-30] MEDS: FAMOTIDINE 20 MG TABLET PO ×2 (07:57→20:41)
[2023-03-30] MEDS: polyethylene glycoL 3350 17 GM POWD.PACK PO (07:57)
[2023-03-30] MEDS: ASPIRIN 325 MG ENTERIC TABLET PO (07:57)
[2023-03-30] MEDS: TAMSULOSIN HCL 0.4 MG CAPSULE PO ×2 (07:57→16:16)
[2023-03-30] MEDS: SENNA/DOCUSATE SODIUM TABLET 2 TAB PO ×2 (07:57→16:16)
[2023-03-30 08:00] VITALS: RESP 20; O2SAT 99
[2023-03-30 08:01] VITALS: O2SAT 99
--- NOTE | 2023-03-30 09:10 | PM.PNORT ---
Progress Note: A&P Assessment and Plan (1) S/P total hip arthroplasty: Qualifiers: Laterality: left Qualified Code(s): Z96.642 - Presence of left artificial hip joint Code(s): Z96.649 - Presence of unspecified artificial hip joint Status: Acute Assessment and Plan: POD #5: Left EDDY Continue PT/OT. WBAT. Walker. HIGH FALL RISK. Continue pain control. Ice Hip. Protect skin. DVT prophylaxis with Aspirin. SCDs. Incentive Spirometry Use reviewed. Monitor Dressing. Change prior to discharge. Bowel Regimen. Dispo: [facility] vs. SNF for Rehab pending progress with PT/OT (2) Urinary retention: Code(s): R33.9 - Retention of urine, unspecified Status: Acute Assessment and Plan: Difficulty with urination post op. History of BPH. Urology increased dose of tamsulosin. Recommended fully void trial again on Thursday. Nursing notified. Nursing to contact urology and see if we are able to pull the Hernandez today. (3) Benign prostatic hyperplasia: Code(s): N40.0 - Benign prostatic hyperplasia without lower urinary tract symptoms Status: Acute Plan Discussed postoperative radiographs, labs, and exam as well as discharge planning and slow progress with PT/OT with attending MD, Dr. Argueta. Agrees with current plan as indicated above. Subjective Subjective Date/Time Seen: 03/30/23 09:10 Post Op day: 5 Interval history: POD #5: Left EDDY Slow progress with PT/OT. Postoperative urinary retention. Review of Systems Cardiovascular: Cardiovascular: Denies chest pain, Denies lightheadedness, Denies palpitations and Denies dyspnea Respiratory: Respiratory: Denies dyspnea Gastrointestinal: Gastrointestinal: Denies diarrhea, Denies nausea and Denies vomiting Endocrine: Endocrine: Denies palpitations Exam Const: General: comfortable and no acute distress Orientation/consciousness: patient oriented x3 Limitations: no limitations Resp: Effort & Inspection: normal respiratory effort Cardio: Rate: regular rate Rhythm: regular rhythm GI: Inspection: non-distended Skin: General skin exam: normal color and wounds noted (incision left hip C/D/I ) Wounds: wounds noted (incision left hip C/D/I ) Neuro: General: patient oriented x3 Extrem: Left lower extremity: hip/thigh Details: tenderness Location: of the hip Location: laterally and anteriorly, swelling (thigh soft ) Location: of the hip (lateral. ), abnormal ROM (limitations with internal/external rotation and flexion/extension due to recent surgical intervention ) and other (incision lateral hip c/d/i. ), knee Details: normal to inspection and normal ROM; no tenderness and no swelling, lower leg (Negative Maeve's Sign ) Details: no edema, ankle (+ankle dorsiflexion/plantarflexion ) Details: normal to inspection, no edema and normal ROM; no tenderness, no swelling and no warmth and foot Details: normal capillary refill, toes with normal ROM, vascular exam Details: dorsalis pedis pulse present and motor-sensory exam light-touch normal in all toes; no tenderness, no ecchymosis and no crepitus Psych: Mental Status: mental status grossly normal Affect: normal affect Objective Data Vital Signs Vital Signs: Vital Signs - 24 hr 03/29/23 14:00 03/29/23 20:00 03/29/23 22:00 Temperature 36.7 C 37.2 C Pulse Rate 77 83 Respiratory Rate 18 18 Blood Pressure 140/61 149/60 H Pulse Oximetry 99 96 Oxygen Delivery Room Air 03/30/23 06:00 03/30/23 08:01 03/30/23 08:00 Temperature 37.0 C Pulse Rate 80 Respiratory Rate 20 20 Blood Pressure 136/65 Pulse Oximetry 99 99 99 Oxygen Delivery Room Air Room Air Intake/Output Intake/Output: Intake & Output 03/27/23 03/28/23 03/29/23 03/30/23 23:59 23:59 23:59 23:59 Intake Total 3690 1630 1670 1240 Output Total 7609 6869 6453 [address] [facility] -1010 -995 -4030 -860 Meds/Results Medications: Active Medications Generic Name Dose Route Start Last Admin Tr
[2023-03-30 14:44] VITALS: BP 133/65; PULSE 83; RESP 18; TEMP 36.9; O2SAT 97
[2023-03-30 15:26] LABS: Hematocrit 32.6 % (42.0-52.0); Hemoglobin 10.5 g/dL (14.0-18.0); Mean Corpuscular HGB Conc 32.2 g/dl (32-36); Mean Corpuscular Hemoglobin 31.4 pg (26-34); Mean Corpuscular Volume 97.6 fl (80-100); Mean Platelet Volume 10.1 fl (7.4-10.4); Platelet Count Result 227 k/mm3 (150-375); Red Blood Count 3.34 M/mm3 (4.6-6.20); Red Cell Distribution Width 12.5 % (11.5-14.5)
[2023-03-30 15:47] LABS: Anion Gap 7 mmol/L (8-16); Blood Urea Nitrogen 19 mg/dL (9-20); Calcium 8.7 mg/dL (8.4-10.2); Carbon Dioxide 28 mmol/L (22-30); Chloride 97 mmol/L (98-107); Estimated CRCL calculation 92 ml/min; Estimated Glomerular Filt Rate > 60; Glucose 110 mg/dL (65-110); Potassium 4.6 mmol/L (3.4-5.0); Sodium 132 mmol/L (137-145)
[2023-03-30] MEDS: RIVAROXABAN 10 MG TABLET PO (16:16)
[2023-03-30] MEDS: ROSUVASTATIN 10 MG TABLET PO (20:41)
[2023-03-30 22:00] VITALS: BP 131/84; PULSE 82; RESP 20; TEMP 36.9; O2SAT 98
[2023-03-31] MEDS: HYDROcodone/acetaminophen (*CRX) 7.5-325 MG TABLET 2 TAB PO ×3 (04:54→20:13)
[2023-03-31 06:00] VITALS: BP 154/61; PULSE 79; RESP 18; TEMP 37.1; O2SAT 97
--- NOTE | 2023-03-31 08:18 | PCPTNOTE ---
Attempted to see patient for PT, however patient was working with OT.
[2023-03-31] MEDS: FAMOTIDINE 20 MG TABLET PO ×2 (08:42→20:12)
[2023-03-31] MEDS: polyethylene glycoL 3350 17 GM POWD.PACK PO (08:42)
[2023-03-31] MEDS: TAMSULOSIN HCL 0.4 MG CAPSULE PO ×2 (08:42→17:22)
[2023-03-31] MEDS: SENNA/DOCUSATE SODIUM TABLET 2 TAB PO ×2 (08:42→17:22)
--- NOTE | 2023-03-31 09:44 | PM.PNORT ---
Progress Note: A&P Assessment and Plan (1) S/P total hip arthroplasty: Qualifiers: Laterality: left Qualified Code(s): Z96.642 - Presence of left artificial hip joint Code(s): Z96.649 - Presence of unspecified artificial hip joint Status: Acute Assessment and Plan: POD #6: Left EDDY Continue PT/OT. WBAT. Walker. HIGH FALL RISK. Continue pain control. Ice Hip. Protect skin. DVT prophylaxis with Xarelto. Transitioned given patients decreased mobility per Dr. Argueta. SCDs. Incentive Spirometry Use reviewed. Monitor Dressing. Change prior to discharge. Bowel Regimen. Dispo: [facility] in [place] pending authorization. Accepted at [facility] (2) Urinary retention: Code(s): R33.9 - Retention of urine, unspecified Status: Acute Assessment and Plan: Hernandez catheter pulled. Patient urinating without difficulty. (3) Benign prostatic hyperplasia: Code(s): N40.0 - Benign prostatic hyperplasia without lower urinary tract symptoms Status: Acute Plan Discussed postoperative radiographs, labs, and exam as well as discharge planning and slow progress with PT/OT with attending MD, Dr. Argueta. Agrees with current plan as indicated above. Subjective Subjective Date/Time Seen: 03/31/23 09:44 Post Op day: 5 Interval history: POD #6: Left EDDY Slow progress with PT/OT. Postoperative urinary retention now resolved. Hernandez catheter pulled yesterday. Patient urinating without difficulties. Review of Systems Cardiovascular: Cardiovascular: Denies chest pain, Denies lightheadedness, Denies palpitations and Denies dyspnea Respiratory: Respiratory: Denies dyspnea Gastrointestinal: Gastrointestinal: Denies diarrhea, Denies nausea and Denies vomiting Endocrine: Endocrine: Denies palpitations Exam Const: General: comfortable and no acute distress Orientation/consciousness: patient oriented x3 Limitations: no limitations Resp: Effort & Inspection: normal respiratory effort Cardio: Rate: regular rate Rhythm: regular rhythm GI: Inspection: non-distended Skin: General skin exam: normal color and wounds noted (incision left hip C/D/I ) Wounds: wounds noted (incision left hip C/D/I ) Neuro: General: patient oriented x3 Extrem: Left lower extremity: hip/thigh Details: tenderness Location: of the hip Location: laterally and anteriorly, swelling (thigh soft ) Location: of the hip (lateral. ), abnormal ROM (limitations with internal/external rotation and flexion/extension due to recent surgical intervention ) and other (incision lateral hip c/d/i. ), knee Details: normal to inspection and normal ROM; no tenderness and no swelling, lower leg (Negative Maeve's Sign ) Details: no edema, ankle (+ankle dorsiflexion/plantarflexion ) Details: normal to inspection, no edema and normal ROM; no tenderness, no swelling and no warmth and foot Details: normal capillary refill, toes with normal ROM, vascular exam Details: dorsalis pedis pulse present and motor-sensory exam light-touch normal in all toes; no tenderness, no ecchymosis and no crepitus Psych: Mental Status: mental status grossly normal Affect: normal affect Objective Data Vital Signs Vital Signs: Vital Signs - 24 hr 03/30/23 14:44 03/30/23 22:00 03/31/23 06:00 Temperature 36.9 C 36.9 C 37.1 C Pulse Rate 83 82 79 Respiratory Rate 18 20 18 Blood Pressure 133/65 131/84 154/61 H Pulse Oximetry 97 98 97 Intake/Output Intake/Output: Intake & Output 03/28/23 03/29/23 03/30/23 03/31/23 23:59 23:59 23:59 23:59 Intake Total 1630 1670 2250 1120 Output Total 2625 5700 3400 1355 Balance -995 -4030 -1150 -235 Meds/Results Medications: Active Medications Generic Name Dose Route Start Last Admin Trade Name Freq PRN Reason Stop Dose Admin Acetaminophen 650 mg 03/25/23 12:26 Acetaminophen 325 Mg Tablet PO Q6H PRN Mild Pain (1-3) or Fever Hydrocodone Bitart/Acetaminophen 1 tab 03/11
[2023-03-31 14:27] VITALS: BP 138/70; PULSE 77; RESP 12; TEMP 36.8; O2SAT 100
[2023-03-31] MEDS: RIVAROXABAN 10 MG TABLET PO (17:22)
[2023-03-31] MEDS: ROSUVASTATIN 10 MG TABLET PO (20:12)
[2023-03-31 21:10] VITALS: BP 134/55; PULSE 79; RESP 13; TEMP 36.6; O2SAT 98
[2023-04-01] MEDS: HYDROcodone/acetaminophen (*CRX) 7.5-325 MG TABLET 2 TAB PO ×2 (04:59→11:44)
[2023-04-01 05:56] VITALS: BP 154/61; PULSE 72; RESP 13; TEMP 36.9; O2SAT 100
[2023-04-01] MEDS: FAMOTIDINE 20 MG TABLET PO (08:05)
[2023-04-01] MEDS: TAMSULOSIN HCL 0.4 MG CAPSULE PO (08:05)
[2023-04-01] MEDS: SENNA/DOCUSATE SODIUM TABLET 2 TAB PO (08:05)
[2023-04-01] MEDS: polyethylene glycoL 3350 17 GM POWD.PACK PO (08:05)
[2023-04-01] MEDS: FUROSEMIDE 20 MG TABLET PO (08:10)
--- NOTE | 2023-04-01 08:18 | PCPTNOTE ---
Attempted to see patient for PT, however patient was working with OT.
--- NOTE | 2023-04-01 10:31 | PM.PNORT ---
Progress Note: A&P Assessment and Plan (1) BPH loc w urin obs/LUTS: Code(s): N40.1 - Benign prostatic hyperplasia with lower urinary tract symptoms Status: Acute (2) Urinary retention: Code(s): R33.9 - Retention of urine, unspecified Status: Acute Assessment and Plan: POSTOP LEFT EDDY DOING WELL. OK TO DC TO REHAB. HE WILL F/U IN 3 WEEKS (3) S/P total hip arthroplasty: Qualifiers: Laterality: left Qualified Code(s): Z96.642 - Presence of left artificial hip joint Code(s): Z96.649 - Presence of unspecified artificial hip joint Status: Acute Subjective Subjective Date/Time Seen: 04/01/23 10:31 Interval history: POST OP LEFT EDDY DOING WELL WITH SLOW PROGRESS WITH PT. HE HAS BEEN ACCEPTED TO REHAB HE WILL F/U IN 3 WEEKS WITH ORTHO Exam Extrem: Other: VSS AFEBRILE DRESSING DRY NV INTACT NEG HOMANS SIGN, CALF SOFT NON TENDER, THIGH SOFT NON TENDER Objective Data Vital Signs Vital Signs: Vital Signs - 24 hr 03/31/23 14:27 03/31/23 21:10 04/01/23 05:56 Temperature 36.8 C 36.6 C 36.9 C Pulse Rate 77 79 72 Respiratory Rate 12 13 13 Blood Pressure 138/70 134/55 L 154/61 H Pulse Oximetry 100 98 100 Oxygen Delivery 04/01/23 08:04 Temperature Pulse Rate Respiratory Rate Blood Pressure Pulse Oximetry Oxygen Delivery Room Air Intake/Output Intake/Output: Intake & Output 03/29/23 03/30/23 03/31/23 04/01/23 23:59 23:59 23:59 23:59 Intake Total 1670 2250 2660 1110 Output Total 5700 3400 2805 1571 Balance -4720 -1150 -145 -465 Meds/Results Medications: Active Medications Generic Name Dose Route Start Last Admin Trade Name Freq PRN Reason Stop Dose Admin Acetaminophen 650 mg 03/25/23 12:26 Acetaminophen 325 Mg Tablet PO Q6H PRN Mild Pain (1-3) or Fever Hydrocodone Bitart/Acetaminophen 1 tab 03/25/23 12:26 03/29/23 16:12 Hydrocodone/Acetaminophen (*Crx) 7.5-325 Mg Tablet PO 1 tab Q3H PRN Administration Pain Rated 4-6 Hydrocodone Bitart/Acetaminophen 2 tab 03/25/23 12:26 04/01/23 04:59 Hydrocodone/Acetaminophen (*Crx) 7.5-325 Mg Tablet PO 2 tab Q6H PRN Administration Pain Rated 7-10 Diazepam 5 mg 03/25/23 12:26 03/26/23 21:10 Diazepam (*Crx) 5 Mg Tablet PO 5 mg Q6H PRN Administration Anxiety/Muscle Spasm Famotidine 20 mg 03/25/23 21:00 04/01/23 08:05 Famotidine 20 Mg Tablet PO 20 mg Q12HR TORI Administration Furosemide 20 mg 03/25/23 12:26 04/01/23 08:10 Furosemide 20 Mg Tablet PO 20 mg DAILY PRN Administration edema Hydroxyzine HCl 50 mg 03/25/23 12:26 Hydroxyzine Hcl 25 Mg Tablet PO Q4H PRN Itching Magnesium Hydroxide 30 ml 03/28/23 11:39 03/28/23 12:00 Magnesium Hydroxide Susp 30 Ml Udc PO 30 ml QAM PRN Administration Constipation Naloxone HCl 0.1 mg 03/25/23 12:26 Naloxone Hcl 0.4 Mg/Ml Vial IV PUSH Q2M PRN Opiate Reversal Ondansetron HCl 4 mg 03/25/23 12:26 03/25/23 16:25 Ondansetron Inj 4 Mg/2 Ml Vial IV PUSH 4 mg Q4H PRN Administration Nausea And Vomiting Polyethylene Glycol 17 gm 03/26/23 09:00 04/01/23 08:05 Polyethylene Glycol 3350 17 Gm Powd.Pack PO 17 gm QAM TORI Administration Rivaroxaban 10 mg 03/30/23 17:00 03/31/23 17:22 Rivaroxaban 10 Mg Tablet PO 04/10/23 17:01 10 mg DAILY@1700 TORI Administration Rosuvastatin Calcium 10 mg 03/25/23 21:00 03/31/23 20:12 Rosuvastatin 10 Mg Tablet PO 10 mg HS TORI Administration Senna/Docusate Sodium 2 tab 03/25/23 17:00 04/01/23 08:05 Senna/Docusate Sodium Tablet PO 2 tab BID TORI Administration Tamsulosin HCl 0.4 mg 03/27/23 09:00 04/01/23 08:05 Tamsulosin Hcl 0.4 Mg Capsule PO 0.4 mg BID TORI Administration Radiology Results: ITS Impressions Intraoperative X-Ray 03/25/23 11:11 IMPRESSION: 1. Total left hip arthroplasty in progress. Hip X-Ray
--- NOTE | 2023-04-01 10:34 | PM.DS ---
DS: Admitting Diagnosis Discharge Date 04/01/23 Admitting Diagnosis left hip djd DS: Discharge Diagnosis Discharge Diagnosis (1) S/P total hip arthroplasty: Qualifiers: Laterality: left Qualified Code(s): Z96.642 - Presence of left artificial hip joint Code(s): Z96.649 - Presence of unspecified artificial hip joint Status: Acute DS: Summary Hospital Course Reason for hospitalization: left racquel Hospital Course: PATIENT WAS ADMITTED S/P TOTAL HIP ARTHROPLASTY FOR POSTOPERATIVE MEDICAL MANAGEMENT, PAIN CONTROL AND MOBILIZATION WITH PHYSICAL AND OCCUPATIONAL THERAPY. THE PATIENT PROGRESSED WELL WITH PT/OT. LABS AND VITALS REMAINED STABLE AND PAIN WELL CONTROLLED. THE PATIENT HAS BEEN CLEARED TO BE DISCHARGED REHAB. FOLLOW UP APPOINTMENT SCHEDULED. DISCHARGE INSTRUCTIONS DISCUSSED AT LENGTH WITH THE PATIENT. MEDICATIONS REVIEWED. Status at Discharge Cognitive/behavioral status at discharge: STABLE Time Spent with Patient Time attestation: Total time spent providing and/or coordinating discharge services: DS: Data Procedures/Treatments: LEFT RACQUEL Discharge Plan Discharge Attending physician on discharge: Fadi Argueta Consulting providers: Arturo Hoang Discharging Clinician: Shanika Hooker Patient Disposition: Inpatient Rehab Facility Activity: may shower, no driving and follow weight bearing status Diet: as tolerated Wound Care Instructions: follow printed instructions Discharge Instructions: Post Op Total Hip Replacement Instructions Dr. Fadi Argueta [phone] Your dressing will be changed prior to your discharge. You will be sent home with one additional dressing to be changed on post op day 7 by the home health RN. You may remove the dressing on post op day 14. Your incision was closed with dermabond, allow the dermabond to fall off naturally once your dressing is removed. Do not pull at the dermabond or disrupt incision healing. You may shower with your dressing but do not submerge in a bath tub. Do not drive or operate machinery until you are released by Dr. Argueta. Do not walk without a walker for any reason until you are released by Dr. Argueta. Continue to apply ice to the hip intermittently for additional pain relief. Protect your skin with a towel or pillow case. Continue to follow strict total hip replacement precautions. Your first post op appointment was sent to you via mail preoperatively. If you have any questions or are unable to make your appointment, please contact our office for scheduling questions. Your medications have been sent to your pharmacy. You have been sent home with pain medication. Please continuous pickling line pickler an over the counter stool softener to prevent constipation due to narcotic use. Please keep this in mind during your postoperative recovery. If you are not experiencing regular bowel movements, please contact our office for further instructions. Please contact our office with any questions/concerns regarding your hip at [phone]. Patient Instructions: Antibiotic Form, Rivaroxaban (By mouth) Stand Alone Forms: General Discharge Information Follow-up/Referrals: Fadi Argueta MD [Physician] - Keep Reg. Scheduled Appt. Discharge Medications: New tamsulosin 0.4 mg Capsule 0.4 mg PO BID 30 Days Qty: 60 0RF Xarelto 10 mg Tablet 10 mg PO DAILY@1700 20 Days Qty: 20 0RF Continued furosemide 20 mg tablet 20 mg PO DAILY PRN (Reason: edema) Qty: 30 2RF rosuvastatin 10 mg tablet 10 mg PO HS oxycodone-acetaminophen 5-325 mg tablet 1 tablet PO QID PRN (Reason: pain) Qty: 30 0RF acetaminophen 500 mg Capsule 500 mg PO Q6H PRN (Reason: Pain) allopurinol 300 mg tablet 300 mg PO DAILY Qty: 90 2RF lisinopril 20 mg tablet 20 mg PO QNOON Qty: 90 2RF terbinafine HCl 250 mg tablet See Rx Instructions .ROUTE .COMPLEX Qty: 30 1RF Dose Instruction: TAKE 1 TABLET BY MOUTH ONCE DAILY
== END 2023-04-01 11:50 | DRG 470 ==
LOC: ANHSURGERY 11:05 → ANH3MED 11:05
PROVIDERS: Admitting Provider Orthopaedic Surgery; PCP Family Medicine Adolescent Medicine; Visit Provider Orthopaedic Surgery
PROC: 0SRB03A Replacement of Left Hip Joint with Ceramic Synthetic Substitute, Uncemented, Open Approach (ICD-10-PCS; CPT 27130; principal; 2023-03-25 07:30)
DX: M16.0 Bilateral primary osteoarthritis of hip (principal); I10 Essential (primary) hypertension; N40.1 Benign prostatic hyperplasia with lower urinary tract symptoms; R33.8 Other retention of urine
CPT/HCPCS: 36415; 73502; 80048; 85025; 85027; 86850; 86900; 86901; 97110; 97116; 97161; 97165; 97530; 97535; 99199; A9270; C1776; G0378; J0171; J0330; J0690; J1100; J1170; J1885; J2250; J2270; J2371; J2405; J2704; J2710; J2795; J3010; J7120

== ENCOUNTER 2023-06-11 15:30 | Outpatient (RCR) | payer BC, SELFPAY ==
--- NOTE | 2023-05-06 15:45 | PTOPEVAL1 ---
Assessment and note entered by Enrrique Acosta, PT Evaluation Information Assessment Status Evaluation Diagnosis Left EDDY, Left hip pain, altered gait, LE weakness Onset 03/25/23 Subjective Information Reports that he is overall doing better. He was sick the past week with flu. He was using crutches prior to surgery and now feels comfortable with his quad cane. He is struggling with walking distances, stairs, and sit to stands. Would like to return to independence with walking. He denies currently having a home exercise plan from his time in rehab. Reported Pain Level Pain Score 1: Self Report Assessment PT Clinical Summary Patient presents with signs and symptoms consistent with post operative muscle restriction and weakness following total hip arthroplasty. Will benefit from skilled therapy to address deficits and improve gross hip mobility and ambulation for functional improvement. Plan of Care Interventions Hot Pack/Cold Pack,Manual Therapy,Neuro Re- education,Therapeutic Activities,Therapeutic Exercise PT Services Indicated Yes Treatment Frequency and 2x/week for 12 visits Duration These treatments will address the objective and functional deficits as defined above. The patient will be advanced safely and appropriately in order for the patient to progress towards his/her prior level of function. Additional exercises will be introduced and as well as a comprehensive home exercise program upon discharge, if needed, ?to ensure carryover of functional gains achieved in the clinic. This treatment plan has been reviewed and agreement upon by the patient.
--- NOTE | 2023-05-06 15:46 | OPREHPOC ---
Outpatient Therapy Plan of Care This is a Multidisciplinary Plan of Care that may contain components documented by all disciplines (PT, OT, and ST.) PT Problem 1 PT Problem #1 Knowledge Deficit PT Goal 1 Goal [place] with HEP Target Visit 6 PT Problem 2 PT Problem #2 Pain PT Goal 1 Goal Report no pain for sit to stand activity Target Visit 6 PT Problem 3 PT Problem #3 Impaired Range of Motion PT Goal 1 Goal Improve neel hip abduction ROM to 40 degrees to improve functional motion and stride length Target Visit 12 PT Goal 2 Goal Improve L hip flexion to 90 degrees to improve foot clearance Target Visit 12 PT Problem 4 PT Problem #4 Impaired Gait PT Goal 1 Goal Ambulate independent of AD with no Loss of balance Target Visit 12
--- NOTE | 2023-06-09 08:43 | PCPTNOTE ---
Patient called to cancel secondary to no transportation today.
--- NOTE | 2023-06-18 16:27 | PCPTNOTE ---
Patient cancelled, pending insurance auth
--- NOTE | 2023-07-23 08:07 | PCPTNOTE ---
Patient cancelled 2 of last three physical therapy appointments. Patient has not returned to therapy at this time. Will be discharged from skilled therapy to [facility] at this time.
== END 2023-07-21 08:31 | disposition home or self-care (01) ==
LOC: ANHPT 15:30
PROVIDERS: PCP Family Medicine Adolescent Medicine; Visit Provider Orthopaedic Surgery
DX: Z47.1 Aftercare following joint replacement surgery (principal); Z96.642 Presence of left artificial hip joint
CPT/HCPCS: 97110; 97161; 97530

== ENCOUNTER → 2024-09-20 13:35 | Outpatient (CLI) | payer BC, SELFPAY ==
--- NOTE | ~2024-09-20 | XR_ITS ---
Left Knee Technique: AP, lateral, and oblique views were obtained. Clinical History: Pain Findings: No fracture or dislocation is seen. Osseous alignment is anatomic. There is mild tricompart mental degenerative change of the left knee. Soft tissues are unremarkable. No joint effusion is seen . Impression: Mild tricompartmental degenerative change. Reviewed, dictated and finalized at [facility]. Impression: Mild tricompartmental degenerative change.
== END ==
PROVIDERS: PCP Nurse Practitioner Family; Visit Provider Nurse Practitioner Family
DX: M17.12 Unilateral primary osteoarthritis, left knee (principal)
CPT/HCPCS: 73562

== ENCOUNTER 2025-03-13 04:07 | Observation (INO) | payer BC, SELFPAY ==
[2025-03-13] VITALS (37 sets, daily range): BP systolic 72–150; BP diastolic 44–94; PULSE 73–162; RESP 12–24; TEMP 36.3–37.1; O2SAT 79–100; BMI 39.4
--- NOTE | ~2025-03-13 | XR_ITS ---
Examination: XR chest 1V portable Clinical History: CHEST PAIN Comparison: 04/10/2021 Technique: Portable AP Findings: Cardiac silhouette enlarged. Mild left basilar opacity. No acute bony abnormality. IMPRESSION: 1. Left basilar atelectasis but consider PA and lateral films with deep inspiration to exclude airspace disease. Reviewed, dictated and finalized at location R. SIFTER IMPRESSION: 1. Left basilar atelectasis but consider PA and lateral films with deep inspir ation to exclude airspace disease.
--- NOTE | 2025-03-13 04:09 | ECG_ITS ---
Test Date: 2025-03-13 04:18:55 Measurements Intervals [place] Rate: 159 P: 0 CA: 0 QRS: 79 QRSD: 75 T: -7 QT: 271 QTc: 441 Interpretive Statements ATRIAL FLUTTER/TACHYCARDIA WITH RAPID VENTRICULAR RESPONSE INDETERMINATE AXIS POSSIBLE RIGHT VENTRICULAR CONDUCTION DELAY [RSR (QR) IN V1/V2] SEPTAL MYOCARDIAL INFARCTION , OF INDETERMINATE AGE [40+ ms Q WAVE IN V1/V2] CRITICAL TEST RESULT No previous ECG available for comparison Electronically Signed On 03-13-2025 06:42:40 BACKEND TESTER by Jaylene Valentine M.D.
[2025-03-13] MEDS: ASPIRIN 81 MG CHEWABLE TABLET 324 MG PO (04:20)
[2025-03-13] MEDS: ETOMIDATE 20 MG/10 ML AMPUL 10 MG IV PUSH (04:32)
[2025-03-13] MEDS: fentaNYL CITRATE INJ (*CRX) 100 MCG/2 ML VIAL (04:32)
[2025-03-13 04:33] LABS: Hematocrit 48.8 % (42.0-52.0); Hemoglobin 15.9 g/dL (14.0-18.0); Immature Granulocyte Percent A 0.6 % (0-0.5); Lymphocytes Absolute Auto 1.69 K/mm3 (0.9-3.2); Mean Corpuscular HGB Conc 32.6 g/dl (32-36); Mean Corpuscular Hemoglobin 31.9 pg (26-34); Mean Corpuscular Volume 98.0 fl (80-100); Nucleated Red Blood Cells Absolute Auto 0.000 K/mm3 (0.0-0.012); Nucleated Red Blood Cells Perc 0.0 % (0.0-0.2); Platelet Count Result 225 k/mm3 (150-375); Red Blood Count 4.98 M/mm3 (4.6-6.20); White Blood Count 10.8 K/mm3 (4.5-10.0)
[2025-03-13] MEDS: SODIUM CHLORIDE 0.9% IV 1,000 ML 999 ML IV CONT ×2 (04:36→05:22)
--- NOTE | 2025-03-13 04:36 | PC.NURSE ---
Pt was given fentanyl and etomidate for synchronized cardioversion. Pt successfully converted from a-fib to sinus rhythm w/ 100j.
--- NOTE | 2025-03-13 04:38 | ECG_ITS ---
Test Date: 2025-03-13 04:41:20 Measurements Intervals [place] Rate: 79 P: 17 NH: 198 QRS: 78 QRSD: 90 T: 8 QT: 364 QTc: 419 Interpretive Statements SINUS RHYTHM POSSIBLE LEFT ATRIAL ENLARGEMENT [-0.1mV P-WAVE IN V1/V2] SEPTAL MYOCARDIAL INFARCT, OLD NONSPECIFIC ST- T CHANGES Compared to ECG 03/13/2025 04:18:55 Atrial flutter no longer present Electronically Signed On 03-13-2025 09:38:23 THREAD PULLER by Abel Ball M.D.
[2025-03-13 04:48] LABS: INR 1.1; Prothrombin Time 14.3 Seconds (11.1-14.7)
[2025-03-13 04:49] LABS: Partial Thromboplastin Time 25.7 Seconds (22.3-36.8)
[2025-03-13 04:50] LABS: Alanine Aminotransferase 34 U/L (6-50); Albumin Level 4.2 g/dL (3.5-5.1); Alkaline Phosphatase 87 U/L (38-126); Anion Gap 9 mmol/L (4-12); Aspartate Amino Transferase 37 U/L (17-59); Bilirubin,Total 0.7 mg/dL (0.2-1.3); Blood Urea Nitrogen 18 mg/dL (9-20); Calcium 9.0 mg/dL (8.4-10.2); Carbon Dioxide 22 mmol/L (22-30); Chloride 102 mmol/L (98-107); Estimated Glomerular Filt Rate > 60; Glucose 129 mg/dL (65-110); Lipase 51 U/L (23-300); Potassium 4.5 mmol/L (3.4-5.0); Sodium 133 mmol/L (137-145); Total Protein 7.7 g/dL (6.3-8.2)
--- NOTE | 2025-03-13 04:57 | ED_ITS ---
HPI - Chest Pain General Chief Complaint: Chest Pain Stated Complaint: CHEST PAIN/SOB Time Seen by Provider: 03/13/25 04:26 History of Present Illness HPI narrative: 64-year-old male with history of hypertension and BPH. Presents to the emergency department today with chest pain and palpitations sensation that woke him up from sleep approximately midnight. He states he went to bed in his normal state of health last night without any symptoms. Denies any chest pain or shortness a breath. No nausea or vomiting. Woke up when he felt like his heart was racing and fluttering. Came to the ER where he was noted to be in rapid a flutter/AFib with no history. Brought to room 3 for resuscitation and evaluation. Denies any fever, chills, nausea, vomiting, back pain, abdominal pain. States he is having chest discomfort that is sharp associated with palpitation sensation presently. No leg swelling or DVT. No history of thromboembolic disease or strokes. Symptom onset less than 4 hours ago. Denies any history of similar events, rapid flutter, fibrillation or dysrhythmias in the past. Related Data Home Medications ?Medication ?Instructions ?Recorded ?Confirmed ?Last Taken ?Type rosuvastatin 10 mg tablet 10 mg PO HS 02/10/23 5 Unknown History acetaminophen 500 mg capsule 500 mg PO Q6H PRN Pain 10/18/24 Unknown History hydrochlorothiazide 12.5 mg capsule 12.5 mg PO 5 10/18/24 Unknown History Allergies Allergy/AdvReac Type Severity Reaction Status Date / Time No Known Allergies Allergy Unknown Verified 03/13/25 04:08 Review of Systems 2 Review of Systems: As reviewed above in HPI All systems reviewed & are unremarkable except as noted in HPI and below PMFSH Past Medical History Medical History Degenerative joint disease of knee Left knee DJD Urinary retention Obesity Benign prostatic hyperplasia Gastroesophageal reflux disease Closed fracture of right distal fibula Anxiety Depression Surgical History Surgical History S/P total hip arthroplasty Left EDDY 03/25/2023 History of lumbar discectomy (2003) L5-S1 History of total left hip arthroplasty (03/2023) Family History Family History Mother Heart attack Hypertension Father , at age 54. Heart attack Hypertension Sibling Heart attack Lung cancer Hypertension Sibling Heart attack, Onset Age: 50 Pacemaker Social History Social History Social History: The patient lives in [place], [place] with his brother. He has never and has no children. He is a lifelong nonsmoker. He used to drink heavily in the past but has not drank for years. No illicit substance use. He works on [employer], loading grain. He designates his brother, Kendall Campos, as his surrogate decision maker and he wishes to be a full code. Smoking status: Never smoker Second hand tobacco smoke exposure: No Additional smoking assessment comments: DENIES ANY FORM OF TOBACCO USE Alcohol intake: never Substance use: never Substance use type: does not use Lack of Transportation: No Lack of Food: Never True Current Housing: I Have Housing Concerned About Future Housing: No Difficulty Paying Gas/Electric Bills: No Difficulty Paying for Meds: No Currently Unemployed: No Education: High School Diploma/GED Difficulty w/ Childcare or Family Care: No Living arrangements: with family Occupation/Education: occupation Gender identity (if verbalized by the patient): Male Sexual Orientation (if Verbalized by the Patient): Straight or Heterosexual Spiritual care concerns: No Agree to blood products: Yes Exam 2 Narrative: GENERAL: [Well-appearing, well-nourished, and in no acute distress.] HEAD: [Normocephalic, atraumatic.] EYES: [PERRLA and EOMI.] ENT: Nares clear, no rhinorrhea or epistaxis. Mucous membranes moist. NECK: Supple. CHEST: [Clear to auscultation. No respiratory distress.] HEART: Rapid regular rhythm. No murmur heard. Warm extremities, 2+ pulses. ABDOMEN: [Soft, nondistended], [nontender], [No rigidity or guarding] EXTREMITIES: Normal range of motion. [No edema.] SKIN: Warm, dry, no rash. NEURO: [No focal deficits]. Alert and oriented [x3.] PSYCH: [Normal mood and affect.] Course Vital Signs Vital signs: Vital Signs Pulse Rate 162 H 03/13/25 04:12 Respiratory Rate 15 03/13/25 04:12 Blood Pressure 116/94 H 03/13/25 04:12 Pulse Oximetry 100 03/13/25 04:12 Oxygen Delivery Room Air 03/13/25 04:12 Pulse Rate 79 03/13/25 05:06 Respiratory Rate 16 03/13/25 05:06 Blood Pressure 100/56 L 03/13/25 05:06 Pulse Oximetry 100 03/13/25 05:06 Oxygen Delivery Room Air 03/13/25 05:06 Oxygen Flow Rate 2 03/13/25 04:36 Procedures Procedural Sedation Procedural Sedation #1: Procedural Sedation Date: 03/13/25 Procedural Sedation Time: 04:45 Presedation Evaluation: Melena body 2, ASA 2, last oral intake 4 hours ago with liquid, last meal yesterday night Procedure: Electrical cardioversion Provider Performed: sedation and procedure Time Out: 444 Informed Consent Obtained: yes Equipment in Room: bag and mask, capnography, alarm security or surveillance monitor, crash cart, oxygen, pulse oximeter and suction Plan for Sedation: moderate sedation ASA Class: II Mallampati Classification: class II NPO Status: last solid food (hours ago) and last liquid food (hours ago) Explanation to Patient/Family: Risk/Benefits/Alternatives and Pt/Family agreed with plan Pt. Educated on Procedural Sedation: Yes Re-evaluated immediately prior: Yes Preparation: alarm security or surveillance monitor applied, pulse oximeter, capnometry used, supplemental O2 applied, reversal agents at bedside, suction/airway equipment at bedside and IV secured Fentanyl: IV Fentanyl dose (mcg): 99 Patient Tolerated Procedure: well and no complications Complications: none Total Sedation Time (min): 15 Other Procedure Procedure 1: Other Procedure: Electrical cardioversion Indication: Unstable atrial flutter Consent: Patient gave verbal consent for proceeding with electrical cardioversion after discussing risks benefits alternatives Narrative: Patient's pretreated and sedated with fentanyl and etomidate. Synchronized cardioversion with single delivery of 100 joule biphasic shock resulted in resolution of patient's unstable atrial flutter and conversion into normal sinus rhythm with improvement in blood pressure 116/94. Patient woke up from anesthesia without any complications and had resolution of symptoms. MDM - Chest Pain MDM Narrative Medical decision making narrative: 64-year-old male with history of hypertension and BPH. Presents to the emergency department today with chest pain and palpitations sensation that woke him up from sleep approximately midnight. He states he went to bed in his normal state of health last night without any symptoms. Denies any chest pain or shortness a breath. No nausea or vomiting. Woke up when he felt like his heart was racing and fluttering. Came to the ER where he was noted to be in rapid a flutter/AFib with no history. Brought to room 3 for resuscitation and evaluation. Denies any fever, chills, nausea, vomiting, back pain, abdominal pain. States he is having chest discomfort that is sharp associated with palpitation sensation presently. No leg swelling or DVT. No history of thromboembolic disease or strokes. Symptom onset less than 4 hours ago. Denies any history of similar events, rapid flutter, fibrillation or dysrhythmias in the past. Patient noted to be in rapid tachycardia with the steady rhythm appearing to be atrial flutter with no identifiable P waves. Initial blood pressure 116/94 however on bring him to the room his blood pressure became unstable 71/59. States he was having chest pain that was worsening. Decision made to emergently cardioverted him given unstable atrial flutter confirmed on EKG. Patient is sedated with 10 mg of IV etomidate and pre treatment with 100 mcg of IV fentanyl for sedation and pain control. Synchronized cardioversion with 100 joules single shock converted him to normal sinus rhythm with a normal rate and resolution of his hypotension. Current blood pressure 160/94. Heart rate 76 and confirmed sinus rhythm without any ST segment changes on EKG. No tachypnea, tachycardia or hypoxemia. Woke up from sedation feeling great, denies any chest pain or symptoms. Discussed the case with business continuity analyst receptionist scheduler which incidentally he has an appointment with today Dr. Valentine. We went over patient's home medications and presentation today and recommendations are to stop his home lisinopril and to initiate 120 mg of daily long-acting diltiazem as well as anticoagulation with Eliquis. Patient given a 1st dose of eliquis here and laboratory studies EKG and chest x-ray ordered. Will monitor for any recurrence of symptoms or new concerns such as electrolyte derangements or troponin elevations. Troponin came back mildly elevated from his baseline and detectable. Chest x- ray shows some left basilar atelectasis versus pneumonia. Patient does admit he was not feeling well for last few days but had no specific complaints so after discussion with the hospitalist will treat him empirically for pneumonia while we work him up otherwise. Rocephin and azithromycin ordered as he has a normal QTC on post-conversion EKG. Patient re-evaluated and feeling better but blood pressure still on the soft side so diltiazem recommendations were held at this time. Patient accepted to the IMU for further evaluation consult placed to Cardiology for inpatient evaluation. Echocardiogram ordered. Medical Records Data Attestation: I reviewed the patient's medical records. Lab Data Attestation: I reviewed the patient's lab results. 03/13/25 04:22 03/13/25 04:22 Labs: Lab Results 03/13/25 Range/Units 04:22 WBC 10.8 H (4.5-10.0) K/mm3 RBC 4.98 (4.6-6.20) M/mm3 Hgb 15.9 D (14.0-18.0) g/dL Hct 48.8 (42.0-52.0) % MCV 98.0 (80-100) fl MCH 31.9 (26-34) pg MCHC 32.6 (32-36) g/dl RDW 13.5 (11.5-14.5) % Plt Count 225 (150-375) k/mm3 MPV 10.2 (7.4-10.4) fl Immature Gran % (Auto) 0.6 H (0-0.5) % Neut % (Auto) 74.3 H (45.5-73.1) % Lymph % (Auto) 15.7 L (18.3-44.2) % [place] % (Auto) 7.6 (2.6-8.5) % Eos % (Auto) 1.3 (0-4.4) % Baso % (Auto) 0.5 (0.2-1.2) % Lymph # (Auto) 1.69 (0.9-3.2) K/mm3 [place] # (Auto) 0.8 H (0.1-0.6) K/mm3 Eos # (Auto) 0.1 (0-0.3) K/mm3 Baso # (Auto) 0.1 (0.0-0.1) K/mm3 Abs Immat Gran (auto) 0.07 H (0.00-0.031) K/mm3 Absolute Neuts (auto) 8.0 H (1.3-6.7) K/mm3 Absolute Nucleated RBC 0.000 (0.0-0.012) K/mm3 Nucleated RBC % 0.0 (0.0-0.2) % PT 14.3 (11.1-14.7) Seconds INR 1.1 APTT 25.7 (22.3-36.8) Seconds Sodium 133 L (137-145) mmol/L Potassium 4.5 (3.4-5.0) mmol/L Chloride 102 (98-107) mmol/L Carbon Dioxide 22 (22-30) mmol/L Anion Gap 9 (4-12) mmol/L BUN 18 (9-20) mg/dL Creatinine 1.14 (0.7-1.3) mg/dL Estim Creat Clear Calc Not Reportable Estimated GFR > 60 (59 - ) Glucose 129 H (65-110) mg/dL Calcium 9.0 (8.4-10.2) mg/dL Total Bilirubin 0.7 (0.2-1.3) mg/dL AST 37 (17-59) U/L ALT 34 (6-50) U/L Alkaline Phosphatase 87 (38-126) U/L Troponin I 0.027 (0.000-0.034) ng/mL NT-Pro-B Natriuret Pep Pending Total Protein 7.7 (6.3-8.2) g/dL Albumin 4.2 (3.5-5.1) g/dL Lipase 51 (23-300) U/L Imaging Data Attestation: I personally reviewed and interpreted this imaging study as follows: My impression: Impressions Chest X-Ray 03/13/25 06:03 IMPRESSION: 1. Left basilar atelectasis but consider PA and lateral films with deep inspiration to exclude airspace disease. Critical Care Time Critical Care Time Critical Care Time: Yes Total Critical Care Time: 35 (Critical care time is exclusive of the separately billable procedures above) Discharge Plan Discharge Clinical Impression: Atrial flutter with rapid ventricular response, Encounter for cardioversion procedure, Chest pain Patient Disposition: Still a Patient Condition: Stable Patient Language: Czech Prescriptions: No Action lisinopril 40 mg tablet 40 mg PO DAILY Qty: 90 3RF hydrochlorothiazide 12.5 mg capsule 12.5 mg PO allopurinol 300 mg tablet 300 mg PO DAILY Qty: 90 2RF indomethacin 50 mg capsule 50 mg PO TID PRN (Reason: joint pain) Qty: 90 2RF rosuvastatin 10 mg tablet 10 mg PO HS acetaminophen 500 mg Capsule 500 mg PO Q6H PRN (Reason: Pain) tamsulosin 0.4 mg Capsule 0.4 mg PO BID 30 Days Qty: 60 0RF Follow-up/Referrals: Irma Tovar APRN [Primary Care Provider, [facility]] Time of Disposition: 06:20
[2025-03-13 05:00] LABS: Troponin I 0.027 ng/mL (0.000-0.034)
[2025-03-13] MEDS: APIXABAN 5 MG TABLET PO (05:57)
[2025-03-13] MEDS: cefTRIAXone 1 GM in SODIUM CHLORIDE 0.9% IV 50 ML 100 ML IVPB (06:15)
[2025-03-13 06:29] LABS: NT Pro B Type Natriuretic Pept 4380 pg/mL (19.9-100)
[2025-03-13] MEDS: AZITHROMYCIN IV 500 MG in SODIUM CHLORIDE 0.9% IV 250 ML IVPB (06:49)
[2025-03-13 07:32] LABS: Magnesium 2.0 mg/dL (1.6-2.3)
--- NOTE | 2025-03-13 07:47 | ADMGEN ---
This patient, Pedro Campos Jr., was admitted to IMU Room 214-01 @ 0715. Patient/family oriented to hospital policies and general routines including ID bracelet, bed and alarms, visiting hours, pain management, procedures, bathroom and other care routines, personal items, smoking policy, room service/diet, and visiting hours. Information on how to activate the Rapid Response Team has been discussed. Patient/Family are encouraged to report perceived risks to care and to ask questions if they do not understand what they are told or what they should do.
[2025-03-13 09:04] LABS: Troponin I 0.033 ng/mL (0.000-0.034)
--- NOTE | 2025-03-13 09:23 | P.CONCA_ITS ---
<Statement entered by Gurpreet Mora MD - 03/13/25 16:20> This documentation has been reviewed and approved. Patient examined at the bedside and patient's chart, laboratory data and imaging reviewed. Agree with diagnosis and recommendations provided by rounding nurse practitioner. Patient successfully cardioverted in the emergency room and remains in normal sinus rhythm. Patient could be discharged in the morning once echocardiogram is completed. Agree with oral anticoagulation in view of 2+ Chads Vasc score. Gurpreet Mora MD Assessment and Plan Assessment and plan (1) Atrial flutter with rapid ventricular response: Code(s): I48.92 - Unspecified atrial flutter Status: Acute Assessment and Plan: This is a new diagnosis. I explained the diagnosis of atrial flutter including pathophysiology, management strategies, risks/complications with the patient. He was successfully cardioverted in the ED and remains in sinus rhythm. * Will place him a low dose beta mitchel, ToprolXL 25mg daily * He has a [id number] score of 2 (age, HTN), therefore antioagulation is indicated * Xarelto 20mg daily * If he remains hospitalized overnight, will check ApneaLink. Otherwise, OP sleep study * Echo has been ordered * Electrolytes WNL (2) Hyperlipidemia: Code(s): E78.5 - Hyperlipidemia, unspecified Status: Acute Assessment and Plan: Continue statin (3) Essential (primary) hypertension: Code(s): I10 - Essential (primary) hypertension Status: Acute Assessment and Plan: Generally at goal History of Present Illness History of Present Illness Consult date/time: 03/13/25 09:23 Requesting physician: Chaz Kohli MD Consult reason: Other (atrial flutter) Reason For Visit: unstable atrial flutter requiring cardioversion Narrative: Pedro Campos is a 64 year old male with hypertension who follows in our office with Dr. Valentine. He presented to the emergency department last night with a chief complaint of palpitations. Patient states he woke up around 0200 experincing a sensation of racing heartbeat, shortness of breath, and chest discomfort. His brother brought him to the emergency department for evaluation. He was found to be in rapid atrial flutter and required electrical cardioversion due to instability. He converted to sinus rhythm and remains in sinus rhythm now. He does not have any history of arrhythmias. Prior to this he had been in his usual state of health and was feeling well. 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 Heart attack Hypertension Sibling Heart attack Lung cancer Hypertension Sibling Heart attack, Onset Age: 50 Pacemaker Grandparent Cerebrovascular accident Diabetes mellitus Social History Social History Social History: The patient lives in [place], [place] with his brother. He has never and has no children. He is a lifelong nonsmoker. He used to drink heavily in the past but has not drank for years. No illicit substance use. He works on [employer], loading grain. He designates his brother, Kendall Campos, as his surrogate decision maker and he wishes to be a full code. Smoking status: Never smoker Second hand tobacco smoke exposure: No Additional smoking assessment comments: DENIES ANY FORM OF TOBACCO USE Alcohol intake: never Substance use: never Substance use type: does not use Lack of Transportation: No Lack of Food: Never True Current Housing: I Have Housing Concerned About Future Housing: No Difficulty Paying Gas/Electric Bills: No Difficulty Paying for Meds: No Currently Unemployed: No Education: High School Diploma/GED Difficulty w/ Childcare or Family Care: No Living arrangements: with family Occupation/Education: occupation Gender identity (if verbalized by the patient): Male Sexual Orientation (if Verbalized by the Patient): Straight or Heterosexual Spiritual care concerns: No Agree to blood products: Yes Meds Home Medications and Allergies Home Medications ?Medication ?Instructions ?Recorded ?Confirmed ?Type rosuvastatin 10 mg tablet 10 mg PO HS 02/10/23 5 History acetaminophen 500 mg capsule 500 mg PO Q6H PRN Pain 03/13/25 History allopurinol 300 mg tablet 300 mg PO DAILY #90 tabs 03/13/25 Rx hydrochlorothiazide 12.5 mg capsule 12.5 mg PO DAILY 0 09/20/24 03/13/25 History indomethacin 50 mg capsule 50 mg PO TID PRN joint pain #90 09/20/24 03/13/25 Rx caps lisinopril 40 mg tablet 40 mg PO DAILY 03/13/2508/02 History tamsulosin 0.4 mg capsule 0.4 mg PO HS 03/13/25 History Allergies Allergy/AdvReac Type Severity Reaction Status Date / Time No Known Allergies Allergy Unknown Verified 03/13/25 08:02 Vital Signs Vital Signs - 24 hr 03/13/25 04:12 03/13/25 04:12 03/13/25 04:15 Temperature Pulse Rate 162 H 160 H Pulse Rate [Bilateral Monitor] Respiratory Rate 15 16 Blood Pressure 116/94 H Blood Pressure [Right Arm] Pulse Oximetry 100 99 Oxygen Delivery Room Air Room Air Oxygen Flow Rate 03/13/25 04:16 03/13/25 04:30 03/13/25 04:30 Temperature Pulse Rate 161 H 161 H Pulse Rate [Bilateral Monitor] 161 H Respiratory Rate 22 H 17 18 Blood Pressure 116/94 H Blood Pressure [Right Arm] 72/44 L Pulse Oximetry 99 100 Oxygen Delivery Nasal Cannula Oxygen Flow Rate 2 03/13/25 04:31 03/13/25 04:33 03/13/25 04:36 Temperature Pulse Rate 162 H Pulse Rate [Bilateral Monitor] 160 H 75 Respiratory Rate 24 H 23 H 18 Blood Pressure 72/44 L Blood Pressure [Right Arm] 91/61 L 105/64 Pulse Oximetry 100 100 100 Oxygen Delivery Room Air Nasal Cannula Oxygen Flow Rate 2 03/13/25 04:40 03/13/25 04:45 03/13/25 04:48 Temperature Pulse Rate 76 79 Pulse Rate [Bilateral Monitor] Respiratory Rate 19 17 Blood Pressure 115/66 Blood Pressure [Right Arm] Pulse Oximetry 100 100 Oxygen Delivery Room Air Oxygen Flow Rate 03/13/25 04:51 03/13/25 04:52 03/13/25 04:55 Temperature Pulse Rate 79 79 Pulse Rate [Bilateral Monitor] 80 Respiratory Rate 12 13 18 Blood Pressure 113/61 104/51 L Blood Pressure [Right Arm] 113/61 Pulse Oximetry 100 79 L 100 Oxygen Delivery Room Air Oxygen Flow Rate 03/13/25 04:58 03/13/25 05:06 03/13/25 05:46 Temperature Pulse Rate 81 82 Pulse Rate [Bilateral Monitor] 79 Respiratory Rate 22 H 16 19 Blood Pressure 98/63 L 98/60 L Blood Pressure [Right Arm] 100/56 L Pulse Oximetry 100 100 100 Oxygen Delivery Room Air Oxygen Flow Rate 03/13/25 06:01 03/13/25 06:15 03/13/25 06:16 Temperature Pulse Rate 81 79 82 Pulse Rate [Bilateral Monitor] Respiratory Rate 22 H 14 18 Blood Pressure 89/67 L 102/62 Blood Pressure [Right Arm] Pulse Oximetry 100 100 100 Oxygen Delivery Oxygen Flow Rate 03/13/25 06:30 03/13/25 06:31 03/13/25 06:45 Temperature Pulse Rate 78 81 77 Pulse Rate [Bilateral Monitor] Respiratory Rate 16 17 14 Blood Pressure 107/69 Blood Pressure [Right Arm] Pulse Oximetry 100 100 100 Oxygen Delivery Oxygen Flow Rate 03/13/25 06:46 03/13/25 07:49 03/13/25 08:22 Temperature 36.3 C L Pulse Rate 79 79 90 Pulse Rate [Bilateral Monitor] Respiratory Rate 17 20 Blood Pressure 114/69 106/58 L Blood Pressure [Right Arm] Pulse Oximetry 100 100 Oxygen Delivery Oxygen Flow Rate Exam 2 Const: General: comfortable, no acute distress, alert and awake O rientation/consciousness: patient oriented x3 HENMT: Head: normal to inspection Eyes: General: appearance normal, both eyes and all related structures P upils: Equal, round and reactive pupils present Neck: Neck: normal visual inspection, supple and no JVD Carotids: normal carotid upstroke Resp: Effort & Inspection: normal respiratory effort Auscultation: clear to auscultation bilaterally Cardio: Rate: regular rate Rhythm: regular rhythm Heart sounds: S1 normal heart sound present, S2 normal heart sound present and no murmurs GI: Auscultation: normal bowel sounds Skin: General skin exam: normal color Neuro: General: patient oriented x3 Cranial nerves: Yes Equal, round and reactive pupils present Extrem: General: normal to inspection Psych: Appearance: grossly normal Mental Status: mental status grossly normal Results Labs and Meds 03/13/25 04:22 03/13/25 04:22 Lab results: Cardiac Enzymes 03/13/25 03/13/25 Range/Units 04:22 08:11 AST 37 (17-59) U/L Troponin I 0.027 0.033 D (0.000-0.034) ng/mL Coagulation 03/13/25 Range/Units 04:22 PT 14.3 (11.1-14.7) Seconds APTT 25.7 (22.3-36.8) Seconds CBC 03/13/25 Range/Units 04:22 WBC 10.8 H (4.5-10.0) K/mm3 RBC 4.98 (4.6-6.20) M/mm3 Hgb 15.9 D (14.0-18.0) g/dL Hct 48.8 (42.0-52.0) % Plt Count 225 (150-375) k/mm3 Lymph # (Auto) 1.69 (0.9-3.2) K/mm3 [place] # (Auto) 0.8 H (0.1-0.6) K/mm3 Eos # (Auto) 0.1 (0-0.3) K/mm3 Baso # (Auto) 0.1 (0.0-0.1) K/mm3 Comprehensive Metabolic Panel 03/13/25 Range/Units 04:22 Sodium 133 L (137-145) mmol/L Potassium 4.5 (3.4-5.0) mmol/L Chloride 102 (98-107) mmol/L Carbon Dioxide 22 (22-30) mmol/L BUN 18 (9-20) mg/dL Creatinine 1.14 (0.7-1.3) mg/dL Glucose 129 H (65-110) mg/dL Calcium 9.0 (8.4-10.2) mg/dL AST 37 (17-59) U/L ALT 34 (6-50) U/L Alkaline Phosphatase 87 (38-126) U/L Total Protein 7.7 (6.3-8.2) g/dL Albumin 4.2 (3.5-5.1) g/dL Intake and Output 11/02/25 11/03/25 11/03/25 23:59 07:59 15:59 Intake Total 2049 Balance 2049 Intake: IV 2049 Sodium Chloride 0.9% IV 1,000 2000 ml @ 999 mls/hr IV CONT .Q1H1M STA Rx#:[id number] 1 gm In Sodium 50 Chloride 0.9% IV 50 ml @ 100 mls/hr IVPB ONCE STA Rx#: [id number] Patient Weight 03/13/25 23:59 Weight 132 kg
[2025-03-13 11:03] LABS: Troponin I 0.036 ng/mL (0.000-0.034)
[2025-03-13] MEDS: RIVAROXABAN 20 MG TABLET PO (17:00)
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
[2025-03-13] MEDS: AMOXICILLIN 500 MG CAPSULE PO (20:06)
[2025-03-13] MEDS: TAMSULOSIN HCL 0.4 MG CAPSULE PO (20:07)
[2025-03-13] MEDS: ROSUVASTATIN 10 MG TABLET PO (20:07)
[2025-03-13] MEDS: BENZOCAINE/MENTHOL (*BKC) 18 EA LOZENGE 1 LOZENGE PO (20:07)
[2025-03-13] MEDS: ACETAMINOPHEN 325 MG TABLET 650 MG PO (20:08)
[2025-03-14] VITALS (19 sets, daily range): BP systolic 115–151; BP diastolic 47–80; PULSE 71–94; RESP 16–20; TEMP 36.4–36.7; O2SAT 95–100
--- NOTE | 2025-03-14 06:00 | ECHO_ITS ---
Patient Info Name: Pedro Campos Age: 64 years : 1960 Gender: Male Ht: 72 in Wt: 291 lbs BSA: 2.64 m2 HR: 80 bpm BP: 151 / 73 mmHg Technical Quality: Good Exam Date: 03/14/2025 9:16 AM Patient Status: O Admit Date: 03/13/2025 Exam Type: CA echo doppler color flow Complete two-dimensional, color flow and Doppler transthoracic echocardiogram is performed. Staff Referring Physician: Chaz Kohli Tax Advisor: Maria Lua Attending Provider: Lucy Flynn Summary 1. Complete two-dimensional, color flow and Doppler transthoracic echocardiogram is performed. 2. Left ventricular systolic function is normal, estimated at 60-65. 3. Left atrial chamber dimension is normal. Left Ventricle Left ventricular chamber dimension is normal. Left ventricular systolic function is normal, estimated at 60-65. There is no increased left ventricular wall thickness. Left ventricular septal wall motion is normal. The left ventricular diastolic function is abnormal. Right Ventricle Right ventricular chamber dimension is normal. Right ventricular systolic function is normal. Left Atria Left atrial chamber dimension is normal. Right Atria Right atrial chamber dimension is normal. Aortic Valve The aortic valve is trileaflet. There is no aortic valve sclerosis. There is no aortic valve stenosis. There is no aortic valve regurgitation. Pulmonic Valve The pulmonic valve is normal. There is no pulmonic valve stenosis. There is no pulmonic regurgitation. Mitral Valve The mitral valve has normal leaflets. There is no mitral valve stenosis. There is no mitral valve regurgitation. Tricuspid Valve The tricuspid valve leaflets are normal. There is no significant tricuspid valve stenosis. There is no tricuspid valve regurgitation. Pericardium/Pleural The pericardium appears normal. There is no pericardial effusion. Inferior Vena Cava Normal inferior vena cava with >50% collapse upon inspiration consistent with normal right atrial pressure, 5 mmHg. Aorta The aortic root size at the sinus of Valsalva is normal. The prox ascending aorta size is normal. Left Ventricular Outflow Tract Name Value Normal LVOT 2D LVOT Diameter 2.0 cm LVOT Doppler LVOT Peak Velocity 124 cm/s LVOT Peak Gradient 6 mmHg LVOT Mean Gradient 3 mmHg LVOT VTI 26 cm LVOT Stroke Volume 85 ml LVOT CO 6.8 l/min LVOT CI 2.6 l/min/m2 Pulmonic Valve Name Value Normal RVOT Doppler RVOT Peak Velocity 107 cm/s RVOT Peak Gradient 5 mmHg PV Doppler PV Peak Velocity 158 cm/s PV Peak Gradient 10 mmHg Mitral Valve Name Value Normal MV Diastolic Function MV E Peak Velocity 84 cm/s MV A Peak Velocity 78 cm/s MV E/A 1.1 MV Decel Time (PW) 215 ms MV Annular TDI MV E/e' (Septal) 11.9 MV E/e' (Lateral) 10.1 MV E/e' (Average) 11.0 Tricuspid Valve Name Value Normal Estimated PAP/RSVP RA Pressure 5 mmHg <=5 Aortic Valve Name Value Normal AV Doppler AV Peak Velocity 196 cm/s AV Peak Gradient 12 mmHg AV Area (Cont Eq Alcon) 2.1 cm2 AV DI (Alcon) 0.63 AV Regurgitation 2D LVOT Area 3.3 cm2 Ventricles Name Value Normal LV Dimensions 2D/MM IVS Diastolic Thickness (2D) 0.8 cm 0.6-1.0 LVID Diastole (2D) 4.3 cm 4.2-5.8 LVIW Diastolic Thickness (2D) 1.0 cm 0.6-1.0 LVID Systole (2D) 2.8 cm 2.5-4.0 LVOT Diameter 2.0 cm LV Mass (2D Cubed) 126.94 g 88.00-224.00 LV Mass Index (2D Cubed) 48 g/m2 49-115 Relative Wall Thickness (2D) 0.48 <=0.42 LV Fractional Shortening/Ejection Fraction 2D/MM LV Fractional Shortening (2D) 33 % 25-43 LV EF (2D Teichholz) 62 % LV Diastolic Volume (4C MOD) 90 ml LV EF (4C MOD) 64 % LV Diastolic Volume (2C MOD) 100 ml LV EF (2C MOD) 48 % LV Diastolic Volume (BP MOD) 95 ml 62-150 LV Diastolic Volume Index (BP MOD) 36 ml/m2 34-74 LV Systolic Volume (BP MOD) 40 ml 21-61 LV Systolic Volume Index (BP MOD) 15 ml/m2 11-31 LV EF (BP MOD) 58 % 52-72 LV Diastolic Length (4C) 7.8 cm LV Systolic Length (4C) 7.2 cm LV Stroke Volume (4C MOD) 57 ml Atria Name Value Normal LA Dimensions LA Volume (4C A-L) 33 ml LA Volume (BP A-L) 39 ml RA Dimensions RA Systolic Major Bearden Length (4C) 5.5 cm 2.1-2.7 RA Area (4C) 18.5 cm2 <=18.0 Report Signatures
[2025-03-14 06:15] LABS: Hematocrit 44.5 % (42.0-52.0); Hemoglobin 14.3 g/dL (14.0-18.0); Immature Granulocyte Percent A 0.7 % (0-0.5); Lymphocytes Absolute Auto 1.29 K/mm3 (0.9-3.2); Mean Corpuscular HGB Conc 32.1 g/dl (32-36); Mean Corpuscular Hemoglobin 31.4 pg (26-34); Mean Corpuscular Volume 97.6 fl (80-100); Nucleated Red Blood Cells Absolute Auto 0.000 K/mm3 (0.0-0.012); Nucleated Red Blood Cells Perc 0.0 % (0.0-0.2); Platelet Count Result 174 k/mm3 (150-375); Red Blood Count 4.56 M/mm3 (4.6-6.20); White Blood Count 6.8 K/mm3 (4.5-10.0)
[2025-03-14 06:47] LABS: Alanine Aminotransferase 25 U/L (6-50); Albumin Level 3.8 g/dL (3.5-5.1); Alkaline Phosphatase 79 U/L (38-126); Anion Gap 5 mmol/L (4-12); Aspartate Amino Transferase 29 U/L (17-59); Bilirubin,Total 0.8 mg/dL (0.2-1.3); Blood Urea Nitrogen 14 mg/dL (9-20); Calcium 9.1 mg/dL (8.4-10.2); Carbon Dioxide 26 mmol/L (22-30); Chloride 104 mmol/L (98-107); Estimated CRCL calculation 105 ml/min; Estimated Glomerular Filt Rate > 60; Glucose 101 mg/dL (65-110); Magnesium 1.9 mg/dL (1.6-2.3); Potassium 4.4 mmol/L (3.4-5.0); Sodium 135 mmol/L (137-145); Total Protein 7.1 g/dL (6.3-8.2)
[2025-03-14 06:49] LABS: Troponin I 0.028 ng/mL (0.000-0.034)
[2025-03-14] MEDS: METOPROLOL SUCCINATE EXT REL 25 MG TABCR PO (10:01)
[2025-03-14] MEDS: AMOXICILLIN 500 MG CAPSULE PO ×2 (10:02→20:26)
--- NOTE | 2025-03-14 13:47 | P.PNCA_ITS ---
Progress Note: A&P Assessment and Plan (1) Atrial flutter with rapid ventricular response: Code(s): I48.92 - Unspecified atrial flutter Status: Acute Assessment and Plan: This is a new diagnosis. I explained the diagnosis of atrial flutter including pathophysiology, management strategies, risks/complications with the patient. He was successfully cardioverted in the ED and remains in sinus rhythm. * Will place him a low dose beta mitchel, ToprolXL 25mg daily * He has a [id number] score of 2 (age, HTN), therefore anticoagulation is indicated * Xarelto 20mg daily * ApneaLink performed - AHI 59. Will need OP sleep study * Echo has been ordered, results pending. Echocardiogram images reviewed by Dr. Mora - normal LV systolic function and no significant valvular abnormalities. Formal echocardiogram report to follow. * Cardiology will sign off. Please call with any questions. (2) Hyperlipidemia: Code(s): E78.5 - Hyperlipidemia, unspecified Status: Acute Assessment and Plan: Continue statin (3) Essential (primary) hypertension: Code(s): I10 - Essential (primary) hypertension Status: Acute Assessment and Plan: Generally at goal Subjective Date/time seen: 03/14/25 16:07 Interval history: Cardiology follow-up for atrial flutter Date of service 03/14/2025: Patient states he is not feeling well at this afternoon. He is complaining of frequent cough and dizziness. He remains in sinus rhythm. He does not have any chest pain, shortness of breath, palpitations. Review of Systems Review of Systems: All systems reviewed & are unremarkable except as noted in HPI and below Exam Const: General: comfortable, no acute distress, alert and awake Orientation/consciousness: patient oriented x3 HENMT: Head: normal to inspection Eyes: General: appearance normal, both eyes and all related structures Pupils: Equal, round and reactive pupils present Neck: Neck: normal visual inspection, supple and no JVD Carotids: normal carotid upstroke Resp: Effort & Inspection: normal respiratory effort Auscultation: clear to auscultation bilaterally Cardio: Rate: regular rate Rhythm: regular rhythm Heart sounds: S1 normal heart sound present, S2 normal heart sound present and no murmurs GI: Auscultation: normal bowel sounds Skin: General skin exam: normal color Neuro: General: patient oriented x3 Cranial nerves: Yes Equal, round and reactive pupils present Extrem: General: normal to inspection Psych: Appearance: grossly normal Mental Status: mental status grossly normal Objective Data Vital Signs Vital Signs: Vital Signs - 24 hr 03/13/25 14:00 03/13/25 15:54 03/13/25 16:15 Temperature 37.1 C Pulse Rate 89 86 86 Respiratory Rate 20 Blood Pressure 144/82 H Pulse Oximetry 100 100 Oxygen Delivery Room Air Fraction of Inspired Oxygen 03/13/25 18:00 03/13/25 20:00 03/13/25 20:00 Temperature Pulse Rate 89 84 81 Respiratory Rate 20 Blood Pressure Pulse Oximetry 95 Oxygen Delivery Room Air Fraction of Inspired Oxygen 03/13/25 20:00 03/13/25 21:59 03/13/25 22:00 Temperature 36.4 C L Pulse Rate 84 84 73 Respiratory Rate 20 Blood Pressure 138/75 Pulse Oximetry 95 95 Oxygen Delivery Room Air Fraction of Inspired Oxygen 21 03/13/25 22:07 03/13/25 23:45 03/14/25 00:00 Temperature 36.8 C Pulse Rate 87 79 94 Respiratory Rate 20 Blood Pressure 150/70 H Pulse Oximetry 95 Oxygen Delivery Fraction of Inspired Oxygen 03/14/25 02:00 03/14/25 03:54 03/14/25 03:59 Temperature 36.4 C L Pulse Rate 74 75 74 Respiratory Rate 20 20 Blood Pressure 151/73 H Pulse Oximetry 97 95 Oxygen Delivery Room Air Fraction of Inspired Oxygen 03/14/25 04:00 03/14/25 06:00 03/14/25 07:42 Temperature 36.7 C Pulse Rate 71 78 79 Respiratory Rate 16 Blood Pressure 139/72 Pulse Oximetry 99 Oxygen Delivery Fraction of Inspired Oxygen 03/14/25 08:00 03/14/25 10:00 03/14/25 10:01 Temperature Pulse Rate 81 83 81 Respiratory Rate Blood Pressure Pulse Oximetry Oxygen Delivery Fraction of Inspired Oxygen 03/14/25 11:23 03/14/25 12:00 Temperature 36.7 C Pulse Rate 78 84 Respiratory Rate 20 Blood Pressure 149/75 H Pulse Oximetry 100 Oxygen Delivery Fraction of Inspired Oxygen Intake/Output Intake/Output: Intake & Output 03/11/25 03/12/25 03/13/25 03/14/25 23:59 22:59 23:59 23:59 Intake Total 3030 630 Output Total 2950 2024 Balance 80 -3844 Meds/Results Medications: Active Medications Generic Name Dose Route Start Last Admin Trade Name Freq PRN Reason Stop Dose Admin Acetaminophen 650 mg 03/13/25 06:21 03/13/25 20:08 Acetaminophen 325 Mg Tablet PO 650 mg Q4H PRN Administration Mild Pain (1-3) or Fever Acetaminophen 500 mg 03/13/25 17:42 Acetaminophen 500 Mg Tablet PO On Hold: 03/13/25 17:49 Q6H PRN Comment: USING PRIOR PRN Pain ACETAMINOPHEN ORDER Allopurinol 300 mg 03/14/25 09:00 03/14/25 10:01 Allopurinol 300 Mg Tablet PO 300 mg DAILY TORI Administration Amoxicillin 500 mg 03/13/25 21:00 03/14/25 10:02 Amoxicillin 500 Mg Capsule PO 500 mg Q12HR TORI Administration Benzocaine 1 lozenge 03/13/25 18:40 03/13/25 20:07 Benzocaine/Menthol (*Bkc) 18 Ea Lozenge PO 1 lozenge PRN PRN Administration Sore Throat Hydrochlorothiazide 12.5 mg 03/14/25 09:00 03/14/25 10:02 Hydrochlorothiazide 12.5 Mg Capsule PO 12.5 mg DAILY TORI Administration Lisinopril 40 mg 03/14/25 09:00 03/14/25 10:01 Lisinopril 20 Mg Tablet PO 40 mg DAILY TORI Administration Metoprolol Succinate 25 mg 03/14/25 09:00 03/14/25 10:01 Metoprolol Succinate Ext Rel 25 Mg Tabcr PO 25 mg QAM TORI Administration Ondansetron HCl 4 mg 03/13/25 06:21 Ondansetron Inj 4 Mg/2 Ml Vial IV PUSH Q4H PRN Nausea Perflutren Lipid Microsphere 0 ml 03/13/25 06:21 Perflutren Lipid Microspheres 1.5 Ml Vial Diluted To 10 Ml Total Volume IV PUSH 03/16/25 06:22 ONCE PRN adequate visualization Protocol Rivaroxaban 20 mg 03/13/25 17:00 03/13/25 17:00 Rivaroxaban 20 Mg Tablet PO 20 mg DAILY@1700 TORI Administration Rosuvastatin Calcium 10 mg 03/13/25 21:00 03/13/25 20:07 Rosuvastatin 10 Mg Tablet PO 10 mg HS TORI Administration Tamsulosin HCl 0.4 mg 03/13/25 21:00 03/13/25 20:07 Tamsulosin Hcl 0.4 Mg Capsule PO 0.4 mg HS TORI Administration Radiology Results: ITS Impressions Chest X-Ray 03/13/25 06:03 IMPRESSION: 1. Left basilar atelectasis but consider PA and lateral films with deep inspiration to exclude airspace disease. Labs Labs: Laboratory Results - last 24 hr 03/14/25 06:05 WBC 6.8 RBC 4.56 L Hgb 14.3 Hct 44.5 MCV 97.6 MCH 31.4 MCHC 32.1 RDW 13.7 Plt Count 174 MPV 9.7 Immature Gran % (Auto) 0.7 H Neut % (Auto) 67.4 Lymph % (Auto) 18.9 [place] % (Auto) 10.5 H Eos % (Auto) 2.2 Baso % (Auto) 0.3 Lymph # (Auto) 1.29 [place] # (Auto) 0.7 H Eos # (Auto) 0.2 Baso # (Auto) 0.0 Abs Immat Gran (auto) 0.05 H Absolute Neuts (auto) 4.6 Absolute Nucleated RBC 0.000 Nucleated RBC % 0.0 Sodium 135 L Potassium 4.4 Chloride 104 Carbon Dioxide 26 Anion Gap 5 BUN 14 Creatinine 0.86 Estim Creat Clear Calc 105 Estimated GFR > 60 Glucose 101 Calcium 9.1 Magnesium 1.9 Total Bilirubin 0.8 AST 29 ALT 25 Alkaline Phosphatase 79 Troponin I 0.028 Total Protein 7.1 Albumin 3.8
--- NOTE | 2025-03-14 15:32 | PM.IMPN ---
Progress Note: A&P Assessment and Plan (1) Atrial flutter with rapid ventricular response: Code(s): I48.92 - Unspecified atrial flutter Status: Acute Plan 1.Atrial flutter with rapid ventricular response Status post cardioversion Continue metoprolol and Xarelto [id number] score of 2 ECHO pending Cardiology following 2.Elevated troponin demand from tachycardia f/u echo, trend troponin 3.Pharyngitis likely secondary to acute bronchitis amoxicilin 500mg bid x 10 days monitor 4.HTN titrate home meds with clinical course 5.HLD -conitnue home meds 6.BPH -continue home meds DVT prophylaxis on Xarelto Full code SDM: Brother Kendall Campos. Disposition. Could be discharged after echocardiogram Time Spent With Patient Time: 35 minutes Subjective Date/time seen: 03/14/25 15:32 Interval history: Patient endorsed feeling better. He coughs intermittently. No fever or chills overnight. No chest pain. Review of Systems Review of Systems: All systems reviewed & are unremarkable except as noted in HPI and below Exam Narrative: General: alert and comfortable Eyes: EOMI, PERRLA ENNT: No issues External ears normal, Neck is supple, no masses, Respiratory systems: Clear to auscultation Cardiovascular: S1, S2, normal rhythm, no murmur, rub, or gallop; no thrill or palpable murmurs on palpation. Gastrointestinal: soft, non-tender, and non-distended abdomen with no masses; BS present Skin: no rash, lesions, ulcerations, subcutaneous nodules or induration Musculoskeletal: no abnormality and no tenderness, normal ROM Neurologic: Alert and oriented x3, non focal Mental Status Exam: normal affect Objective Data Vital Signs Vital Signs: Vital Signs - 24 hr 03/13/25 15:54 03/13/25 16:15 03/13/25 18:00 Temperature 37.1 C Pulse Rate 86 86 89 Respiratory Rate 20 Blood Pressure 144/82 H Pulse Oximetry 100 100 Oxygen Delivery Room Air Fraction of Inspired Oxygen 03/13/25 20:00 03/13/25 20:00 03/13/25 20:00 Temperature 36.4 C L Pulse Rate 84 81 84 Respiratory Rate 20 20 Blood Pressure 138/75 Pulse Oximetry 95 95 Oxygen Delivery Room Air Fraction of Inspired Oxygen 03/13/25 21:59 03/13/25 22:00 03/13/25 22:07 Temperature 36.8 C Pulse Rate 84 73 87 Respiratory Rate 20 Blood Pressure 150/70 H Pulse Oximetry 95 95 Oxygen Delivery Room Air Fraction of Inspired Oxygen 21 03/13/25 23:45 03/14/25 00:00 03/14/25 02:00 Temperature Pulse Rate 79 94 74 Respiratory Rate Blood Pressure Pulse Oximetry Oxygen Delivery Fraction of Inspired Oxygen 03/14/25 03:54 03/14/25 03:59 03/14/25 04:00 Temperature 36.4 C L Pulse Rate 75 74 71 Respiratory Rate 20 20 Blood Pressure 151/73 H Pulse Oximetry 97 95 Oxygen Delivery Room Air Fraction of Inspired Oxygen 03/14/25 06:00 03/14/25 07:42 03/14/25 08:00 Temperature 36.7 C Pulse Rate 78 79 81 Respiratory Rate 16 Blood Pressure 139/72 Pulse Oximetry 99 Oxygen Delivery Fraction of Inspired Oxygen 03/14/25 10:00 03/14/25 10:01 03/14/25 11:23 Temperature 36.7 C Pulse Rate 83 81 78 Respiratory Rate 20 Blood Pressure 149/75 H Pulse Oximetry 100 Oxygen Delivery Fraction of Inspired Oxygen 03/14/25 12:00 03/14/25 14:00 Temperature Pulse Rate 84 79 Respiratory Rate Blood Pressure Pulse Oximetry Oxygen Delivery Fraction of Inspired Oxygen Intake/Output Intake/Output: Intake & Output 03/11/25 03/12/25 03/13/25 03/14/25 23:59 22:59 23:59 23:59 Intake Total 3030 630 Output Total 2950 2025 Balance 80 -1395 Meds/Results Medications: Active Medications Generic Name Dose Route Start Last Admin Trade Name Freq PRN Reason Stop Dose Admin Acetaminophen 650 mg 03/13/25 06:21 03/13/25 20:08 Acetaminophen 325 Mg Tablet PO 650 mg Q4H PRN Administration Mild Pain (1-3) or Fever Acetaminophen 500 mg 03/13/25 17:42 Acetaminophen 500 Mg Tablet PO On Hold: 03/13/25 17:49 Q6H PRN Comment: USING PRIOR PRN Pain ACETAMINOPHEN ORDER Allopurinol 300 mg 03/14/25 09:00 03/14/25 10:01 Allopurinol 300 Mg Tablet PO 300 mg DAILY TORI Administration Amoxicillin 500 mg 03/13/25 21:00 03/14/25 10:02 Amoxicillin 500 Mg Capsule PO 500 mg Q12HR TORI Administration Benzocaine 1 lozenge 03/13/25 18:40 03/13/25 20:07 Benzocaine/Menthol (*Bkc) 18 Ea Lozenge PO 1 lozenge PRN PRN Administration Sore Throat Hydrochlorothiazide 12.5 mg 03/14/25 09:00 03/14/25 10:02 Hydrochlorothiazide 12.5 Mg Capsule PO 12.5 mg DAILY TORI Administration Lisinopril 40 mg 03/14/25 09:00 03/14/25 10:01 Lisinopril 20 Mg Tablet PO 40 mg DAILY TORI Administration Metoprolol Succinate 25 mg 03/14/25 09:00 03/14/25 10:01 Metoprolol Succinate Ext Rel 25 Mg Tabcr PO 25 mg QAM TORI Administration Ondansetron HCl 4 mg 03/13/25 06:21 Ondansetron Inj 4 Mg/2 Ml Vial IV PUSH Q4H PRN Nausea Perflutren Lipid Microsphere 0 ml 03/13/25 06:21 Perflutren Lipid Microspheres 1.5 Ml Vial Diluted To 10 Ml Total Volume IV PUSH 03/16/25 06:22 ONCE PRN adequate visualization Protocol Rivaroxaban 20 mg 03/13/25 17:00 03/13/25 17:00 Rivaroxaban 20 Mg Tablet PO 20 mg DAILY@1700 TORI Administration Rosuvastatin Calcium 10 mg 03/13/25 21:00 03/13/25 20:07 Rosuvastatin 10 Mg Tablet PO 10 mg HS TORI Administration Tamsulosin HCl 0.4 mg 03/13/25 21:00 03/13/25 20:07 Tamsulosin Hcl 0.4 Mg Capsule PO 0.4 mg HS TORI Administration Radiology Results: ITS Impressions Chest X-Ray 03/13/25 06:03 IMPRESSION: 1. Left basilar atelectasis but consider PA and lateral films with deep inspiration to exclude airspace disease. Labs Labs: Laboratory Results - last 24 hr 03/14/25 06:05 WBC 6.8 RBC 4.56 L Hgb 14.3 Hct 44.5 MCV 97.6 MCH 31.4 MCHC 32.1 RDW 13.7 Plt Count 174 MPV 9.7 Immature Gran % (Auto) 0.7 H Neut % (Auto) 67.4 Lymph % (Auto) 18.9 Baldwin % (Auto) 10.5 H Eos % (Auto) 2.2 Baso % (Auto) 0.3 Lymph # (Auto) 1.29 Baldwin # (Auto) 0.7 H Eos # (Auto) 0.2 Baso # (Auto) 0.0 Abs Immat Gran (auto) 0.05 H Absolute Neuts (auto) 4.6 Absolute Nucleated RBC 0.000 Nucleated RBC % 0.0 Sodium 135 L Potassium 4.4 Chloride 104 Carbon Dioxide 26 Anion Gap 5 BUN 14 Creatinine 0.86 Estim Creat Clear Calc 105 Estimated GFR > 60 Glucose 101 Calcium 9.1 Magnesium 1.9 Total Bilirubin 0.8 AST 29 ALT 25 Alkaline Phosphatase 79 Troponin I 0.028 Total Protein 7.1 Albumin 3.8
[2025-03-14] MEDS: RIVAROXABAN 20 MG TABLET PO (16:41)
--- NOTE | 2025-03-14 16:56 | PC.NURSE ---
On 03/14/25, the student, [José Miguel Venegas ], provided care and completed [facility] documentation on this patient. I have reviewed the student's documentation and agree with the findings.
[2025-03-14] MEDS: ROSUVASTATIN 10 MG TABLET PO (20:26)
[2025-03-14] MEDS: TAMSULOSIN HCL 0.4 MG CAPSULE PO (20:26)
[2025-03-15] VITALS (11 sets, daily range): BP systolic 139–147; BP diastolic 67–78; PULSE 65–80; RESP 16–22; TEMP 36.4–36.9; O2SAT 6–99
[2025-03-15] MEDS: ACETAMINOPHEN 325 MG TABLET 650 MG PO (09:05)
[2025-03-15] MEDS: AMOXICILLIN 500 MG CAPSULE PO (09:08)
[2025-03-15] MEDS: METOPROLOL SUCCINATE EXT REL 25 MG TABCR PO (09:08)
[2025-03-15 10:24] LABS: Thyroid Stimulating Hormone Reflex 1.540 uIU/mL (0.465-4.68)
--- NOTE | 2025-03-15 13:56 | PC.NURSE ---
On 03/15/25, the student, [José Miguel Venegas ], provided care and completed [facility] documentation on this patient. I have reviewed the student's documentation and agree with the findings.
--- NOTE | 2025-03-15 14:01 | PM.PNCARD ---
Progress Note: A&P Assessment and Plan (1) Atrial flutter with rapid ventricular response: Code(s): I48.92 - Unspecified atrial flutter Status: Acute (2) Hyperlipidemia: Code(s): E78.5 - Hyperlipidemia, unspecified Status: Acute (3) Essential (primary) hypertension: Code(s): I10 - Essential (primary) hypertension Status: Acute (4) Morbid obesity: Code(s): E66.01 - Morbid (severe) obesity due to excess calories Status: Acute Plan Impression: 1. New onset of atrial flutter with rapid ventricular response. Patient was cardioverted to normal sinus rhythm in the emergency room and remains in normal sinus rhythm. 2. Echocardiogram reveals mildly reduced systolic function in range of 45-50% without significant valvular problems or pericardial effusion. Mild concentric hypertrophy of the left ventricle is noted. 3. Morbid obesity with suspected obstructive sleep apnea which has been arranged as an outpatient for 4. Hypertension and hyperlipidemia. Recommendation: #. Currently blood pressure 139/67 heart rate is 74 per minute. Monitor shows normal sinus rhythm. #. Current medications reviewed. Will increase metoprolol succinate to 50 mg daily. Continue with lisinopril 40 mg daily, hydrochlorothiazide 12.5 mg daily and Xarelto 20 mg daily. Continue rosuvastatin 10 mg at bedtime. #. Morbid obesity with suspected obstructive sleep apnea. Continue workup as an outpatient with sleep study. #, laboratory data reviewed. Please count 6.8. Hemoglobin is 14.3 and platelets are normal. Sodium 135, potassium is 4.4, BUN is 14 creatinine 0.86. Okay to discharge this patient from cardiac viewpoint. Thank you again for allowing us to participate in care this patient. Cardiology will only follow as needed. Subjective Date/time seen: 03/15/25 14:01 Interval history: Review of HPI: Patient with history of hypertension hyperlipidemia admitted with atrial flutter with rapid ventricular response. Patient was successfully cardioverted in the emergency room and subsequently started on Toprol-XL 25 mg daily patient is also started on Xarelto 20 mg daily. Patient remains in normal sinus rhythm Subjective: Patient was examined at the bedside. Patient is awake alert and appears comfortable. Monitor shows normal sinus rhythm. No complaints of shortness of breath chest pain. Review of Systems Review of Systems: Twelve point review of system was completed. Pertinent positive and negative findings per HPI. Exam Narrative: Patient was examined at bedside. Patient is awake alert appears comfortable. Patient is morbidly obese and weighs 129.9 kg with BMI of 39. Monitor shows normal sinus rhythm. Head and neck examination is unremarkable. Neck is supple. There is no JVD or carotid bruit. Lungs reveal decreased air entry bilaterally. There is no wheezing or crepitation. Heart sounds reveal normal S1-S2. There is soft systolic murmur. There is no S3 or S4. Abdomen is obese without hepatosplenomegaly or tenderness. There is no abdominal wall edema or ascites Extremities revealed mild bilateral leg edema. Neurological examination is intact. Objective Data Vital Signs Vital Signs: Vital Signs - 24 hr 03/14/25 16:00 03/14/25 16:00 03/14/25 18:00 Temperature 36.4 C L Pulse Rate 71 73 80 Respiratory Rate 16 Blood Pressure 115/47 L Pulse Oximetry 100 Oxygen Delivery 03/14/25 20:00 03/14/25 20:00 03/14/25 20:00 Temperature 36.4 C Pulse Rate 75 75 78 Respiratory Rate 16 16 Blood Pressure 151/80 H Pulse Oximetry 98 98 Oxygen Delivery Room Air 03/14/25 22:00 03/14/25 23:39 03/14/25 23:54 Temperature 36.4 C L Pulse Rate 74 74 74 Respiratory Rate 16 16 Blood Pressure 145/65 H Pulse Oximetry 98 99 Oxygen Delivery Room Air 03/15/25 00:00 03/15/25 02:00 03/15/25 03:45 Temperature Pulse Rate 77 69 67 Respiratory Rate 16 Blood Pressure Pulse Oximetry 99 Oxygen Delivery Room Air 03/15/25 04:00 03/15/25 04:00 03/15/25 06:00 Temperature 36.4 C Pulse Rate 66 71 70 Respiratory Rate 16 Blood Pressure 147/70 H Pulse Oximetry 98 Oxygen Delivery 03/15/25 08:00 03/15/25 08:00 03/15/25 08:10 Temperature 36.9 C Pulse Rate 80 71 76 Respiratory Rate 22 H 22 H Blood Pressure 146/78 H Pulse Oximetry 96 96 Oxygen Delivery Room Air 03/15/25 09:08 03/15/25 10:00 03/15/25 12:00 Temperature Pulse Rate 75 71 71 Respiratory Rate 22 H Blood Pressure Pulse Oximetry 96 Oxygen Delivery Room Air 03/15/25 12:00 Temperature 36.6 C Pulse Rate 74 Respiratory Rate 18 Blood Pressure 139/67 Pulse Oximetry 6 L Oxygen Delivery Intake/Output Intake/Output: Intake & Output 03/12/25 03/13/25 03/14/25 03/15/25 22:59 23:59 23:59 23:59 Intake Total 3030 1895 910 Output Total 2950 8763 400 Balance 80 -2880 510 Meds/Results Medications: Active Medications Generic Name Dose Route Start Last Admin Trade Name Freq PRN Reason Stop Dose Admin Acetaminophen 650 mg 03/13/25 06:21 03/15/25 09:05 Acetaminophen 325 Mg Tablet PO 650 mg Q4H PRN Administration Mild Pain (1-3) or Fever Acetaminophen 500 mg 03/13/25 17:42 Acetaminophen 500 Mg Tablet PO On Hold: 03/13/25 17:49 Q6H PRN Comment: USING PRIOR PRN Pain ACETAMINOPHEN ORDER Allopurinol 300 mg 03/14/25 09:00 03/15/25 09:09 Allopurinol 300 Mg Tablet PO 300 mg DAILY TORI Administration Amoxicillin 500 mg 03/13/25 21:00 03/15/25 09:08 Amoxicillin 500 Mg Capsule PO 500 mg Q12HR TORI Administration Benzocaine 1 lozenge 03/13/25 18:40 03/13/25 20:07 Benzocaine/Menthol (*Bkc) 18 Ea Lozenge PO 1 lozenge PRN PRN Administration Sore Throat Hydrochlorothiazide 12.5 mg 03/14/25 09:00 03/15/25 09:09 Hydrochlorothiazide 12.5 Mg Capsule PO 12.5 mg DAILY TORI Administration Lisinopril 40 mg 03/14/25 09:00 03/15/25 09:09 Lisinopril 20 Mg Tablet PO 40 mg DAILY TORI Administration Metoprolol Succinate 25 mg 03/14/25 09:00 03/15/25 09:08 Metoprolol Succinate Ext Rel 25 Mg Tabcr PO 25 mg QAM TORI Administration Ondansetron HCl 4 mg 03/13/25 06:21 Ondansetron Inj 4 Mg/2 Ml Vial IV PUSH Q4H PRN Nausea Perflutren Lipid Microsphere 0 ml 03/13/25 06:21 Perflutren Lipid Microspheres 1.5 Ml Vial Diluted To 10 Ml Total Volume IV PUSH 03/16/25 06:22 ONCE PRN adequate visualization Protocol Rivaroxaban 20 mg 03/13/25 17:00 03/14/25 16:41 Rivaroxaban 20 Mg Tablet PO 20 mg DAILY@1700 TORI Administration Rosuvastatin Calcium 10 mg 03/13/25 21:00 03/14/25 20:26 Rosuvastatin 10 Mg Tablet PO 10 mg HS TORI Administration Tamsulosin HCl 0.4 mg 03/13/25 21:00 03/14/25 20:26 Tamsulosin Hcl 0.4 Mg Capsule PO 0.4 mg HS TORI Administration Radiology Results: ITS Impressions Chest X-Ray 03/13/25 06:03 IMPRESSION: 1. Left basilar atelectasis but consider PA and lateral films with deep inspiration to exclude airspace disease. Labs Labs: Laboratory Results - last 24 hr 03/14/25 05:49 TSH (Reflex) 1.540
--- NOTE | 2025-03-15 15:56 | P.DS_ITS ---
DS: Admitting Diagnosis Discharge Date 03/15/25 Admitting Diagnosis Shortness of breath chest pain DS: Discharge Diagnosis Discharge Diagnosis (1) Atrial flutter with rapid ventricular response: Code(s): I48.92 - Unspecified atrial flutter Status: Acute DS: Summary Hospital Course Hospital Course: Patient cardioverted in the ER, remained in normal sinus rhythm. Echocardiogram completed. Cardiology consulted. He will follow-up with his established wealth management consultant Dr. Valentine -to call to 3 range schedule. Discharging on Xarelto, metoprolol. Risks versus benefits, adverse effects of medication discussed. All of his questions and concerns were answered to satisfaction. The patient was full code during the admission. Time Spent with Patient Time attestation: Total time spent providing and/or coordinating discharge services: Time spent: Greater than 30 minutes Exam Const: General: comfortable and no acute distress Eyes: Pupils: Equal, round and reactive pupils present Neck: Neck: supple Resp: Effort & Inspection: normal respiratory effort Auscultation: clear to auscultation bilaterally Cardio: Rate: regular rate Rhythm: regular rhythm GI: Inspection: non-distended GI Palp: Yes Soft to palpation Neuro: Motor exam (neuro): 5/5 motor strength present throughout Extrem: General: no edema DS: Data Data Completed and Pending Labs on day of discharge: Labs from last 24 hours 03/14/25 05:49 TSH (Reflex) 1.540 Discharge Plan Discharge Attending physician on discharge: Lucy Flynn Consulting providers: Jaylene Valentine Discharging Clinician: Lucy Flynn Patient Disposition: Home Activity: september shower Diet: as tolerated Patient Instructions: Metoprolol (By mouth), Rivaroxaban (By mouth), A-fib (Atrial Fibrillation) (DC) Patient Language: Thai Stand Alone Forms: General Discharge Information, Work/School Release IP Follow-up/Referrals: Jaylene Valentine MD [Physician, Cardiology] Irma Tovar APRN [Primary Care Provider, Family Practice] Discharge Medications: New amoxicillin 500 mg Capsule 500 mg PO Q12HR Qty: 16 0RF metoprolol succinate [Toprol XL] 25 mg Tablet Extended Release 24 Hr 25 mg PO QAM Qty: 30 0RF Xarelto 20 mg Tablet 20 mg PO DAILY@1700 Qty: 30 0RF Continued hydrochlorothiazide 12.5 mg capsule 12.5 mg PO DAILY allopurinol 300 mg tablet 300 mg PO DAILY Qty: 90 2RF rosuvastatin 10 mg tablet 10 mg PO HS acetaminophen 500 mg Capsule 500 mg PO Q6H PRN (Reason: Pain) tamsulosin 0.4 mg Capsule 0.4 mg PO HS Patient Comments: takes at bedtime lisinopril 40 mg tablet 40 mg PO DAILY Rx Instructions: takes at 1200 Discontinued indomethacin 50 mg capsule 50 mg PO TID PRN (Reason: joint pain) Qty: 90 2RF Date of admission: 03/13/25 06:22 Primary Care Provider: Irma Tovar Admitting Provider: Lucy Flynn Attending physician on admission: Lucy Flynn Condition: Stable Hospitalist MIPS Heart Failure (Exclusion) Patient has history of Heart Transplant or Left Ventricular Assistive Device?: No IF YES, STOP HERE Heart Failure (Qualifier) Patient has current or prior documentation of LVEF less than or equal to 40%, or mod/servere depressed LVSF?: No IF NO, STOP HERE
== END 2025-03-15 14:35 | disposition home or self-care (01) ==
LOC: ANHED 06:21 → ANHIMU 06:43
PROVIDERS: Internal Medicine; Admitting Provider General Practice; Emergency Provider Student in an Organized Health Care Education/Training Program; PCP Nurse Practitioner Family; Visit Provider General Practice
DX: I48.92 Unspecified atrial flutter (principal); J02.9 Acute pharyngitis, unspecified; I10 Essential (primary) hypertension; E78.5 Hyperlipidemia, unspecified; N40.0 Benign prostatic hyperplasia without lower urinary tract symptoms; K21.9 Gastro-esophageal reflux disease without esophagitis; Z96.642 Presence of left artificial hip joint; E66.01 Morbid (severe) obesity due to excess calories; Z68.38 Body mass index [BMI] 38.0-38.9, adult
CPT/HCPCS: 36415; 71045; 80053; 83690; 83735; 83880; 84443; 84484; 85025; 85610; 85730; 87070; 92960; 93005; 93306; 94762; 96361; 96365; 96367; 96375; 99285; A9270; G0378; J0456; J0696; J3010; J7030; J7050

== ENCOUNTER → 2025-04-20 15:43 | Outpatient (CLI) | payer BC, SELFPAY ==
--- NOTE | ~2025-04-20 | XR_ITS ---
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 Technique: 2 views obtained. Findings: The lungs are clear, no effusion. No pneumothorax. Heart is normal size. Mediastinal and hilar contours are within normal limits. Bony thorax no acute abnormality. Impression: No acute cardiopulmonary abnormality. Reviewed, dictated and finalized at location P. TENING MACHINE OPERATOR Impression: No acute cardiopulmonary abnormality.
== END ==
PROVIDERS: PCP Nurse Practitioner; Visit Provider Nurse Practitioner
DX: R05.9 Cough, unspecified (principal)
CPT/HCPCS: 71046

== ENCOUNTER 2025-04-20 16:21 | Outpatient (CLI) | payer BC, SELFPAY ==
[2025-04-20 17:13] LABS: Influenza A QL RT-PCR Negative (Negative); Influenza B QL RT-PCR Negative (Negative); RSV RNA, RT-PCR Negative (Negative); SARS-CoV-2 RNA PCR Negative (Negative)
== END 2025-04-20 16:22 | disposition home or self-care (01) ==
LOC: ANHLAB 16:24
PROVIDERS: PCP Nurse Practitioner; Visit Provider Nurse Practitioner
DX: R05.9 Cough, unspecified (principal); Z20.822 Contact with and (suspected) exposure to COVID-19
CPT/HCPCS: 87637